=== PATIENT | female | born 1970 | race Caucasian/White ===

== ENCOUNTER 2020-05-11 12:43 | Outpatient (CLI) | payer BC, SELFPAY ==
--- NOTE | 2020-05-11 15:00 | NEURO_ITS ---
Patient Number: [id number] Impression: # Complains of numbness of hands. # Right Carpal Tunnel Syndrome involving motor and sensory median nerve. # Left sensory Carpal Tunnel Syndrome. # No ulnar neuropathy. # Normal needle/EMG exam. Nerve Conduction Studies Anti Sensory Summary Table Stim Site NR Peak (ms) P-T Amp (?V) Site1 Site2 Delta-P (ms) Dist (cm) Lang (m/s) Left Median Anti Sensory (2-3nd Digit) Wrist 2.6 154.1 Wrist 2-3nd Digit 2.6 14.0 54 Wrist 5.1 126.6 Wrist 2-3nd Digit 2.6 14.0 54 Right Median Anti Sensory (2-3nd Digit) Wrist 6.4 45.5 Wrist 2-3nd Digit 6.4 14.0 22 Wrist 5.8 58.9 Wrist 2-3nd Digit 6.4 14.0 22 Left Radial Anti Sensory (Base 1st Digit) Wrist 1.9 49.1 Wrist Base 1st Digit 1.9 0.0 Right Radial Anti Sensory (Base 1st Digit) Wrist 1.8 29.6 Wrist Base 1st Digit 1.8 0.0 Left Ulnar Anti Sensory (5th Digit) Wrist 2.2 119.6 Wrist 5th Digit 2.2 14.0 64 Right Ulnar Anti Sensory (5th Digit) Wrist 2.1 98.5 Wrist 5th Digit 2.1 14.0 67 Motor Summary Table Stim Site NR Onset (ms) O-P Amp (mV) Site1 Site2 Delta-0 (ms) Dist (cm) Lang (m/s) Left Median Motor (Abd Poll Brev) Wrist 2.5 1.6 Elbow Wrist 4.8 27.0 56 Elbow 7.3 1.3 Right Median Motor (Abd Poll Brev) Wrist 2.2 4.5 Elbow Wrist 5.2 28.0 54 Elbow 7.4 3.0 Left Ulnar Motor (Abd Dig Minimi) Wrist 2.2 5.4 A Elbow Wrist 4.5 27.0 60 A Elbow 6.7 7.0 Right Ulnar Motor (Abd Dig Minimi) Wrist 1.6 7.8 A Elbow Wrist 4.5 29.0 64 A Elbow 6.1 7.2 F Wave Studies NR F-Lat (ms) L-R F-Lat (ms) Left Median (Mrkrs) (Abd Poll Brev) 22.94 2.17 Right Median (Mrkrs) (Abd Poll Brev) 25.10 2.17 Left Ulnar (Mrkrs) (Abd Dig Min) 23.07 0.10 Right Ulnar (Mrkrs) (Abd Dig Min) 22.97 0.10 EMG Side Muscle Nerve Root Ins Act Fibs Amp Dur Recrt Comment Right 1stDorInt Ulnar C8-T1 Nml Nml Nml Nml Nml Right Ext Indicis Radial (Post Int) C7-8 Nml Nml Nml Nml Nml Right Ext Digitorum Radial (Post Int) C7-8 Nml Nml Nml Nml Nml Right BrachioRad Radial C5-6 Nml Nml Nml Nml Nml Right PronatorTeres Median C6-7 Nml Nml Nml Nml Nml Right Abd Poll Brev Median C8-T1 Nml Nml Nml Nml Nml Left 1stDorInt Ulnar C8-T1 Nml Nml Nml Nml Nml Left Ext Indicis Radial (Post Int) C7-8 Nml Nml Nml Nml Nml Left Ext Digitorum Radial (Post Int) C7-8 Nml Nml Nml Nml Nml Left BrachioRad Radial C5-6 Nml Nml Nml Nml Nml Left PronatorTeres Median C6-7 Nml Nml Nml Nml Nml Left Abd Poll Brev Median C8-T1 Nml Nml Nml Nml Nml MTDD
== END 2020-05-11 12:44 | disposition home or self-care (01) ==
PROVIDERS: PCP Family Medicine; Visit Provider Family Medicine
DX: G56.01 Carpal tunnel syndrome, right upper limb (principal); G56.22 Lesion of ulnar nerve, left upper limb
CPT/HCPCS: 95886; 95911

== ENCOUNTER 2020-05-22 12:42 | Outpatient (CLI) | payer BC, SELFPAY ==
--- NOTE | 2020-05-22 12:46 | ECG_ITS ---
Measurements Intervals [place] Rate: 85 P: -19 WV: 143 QRS: 39 QRSD: 84 T: 58 QT: 364 QTc: 435 Interpretive Statements SINUS RHYTHM BASELINE ARTIFACT- II, III, AVL, AVF NORMAL ECG Electronically Signed On 05-22-2020 15:23:08 CDT by Mohinder Sweeney D.O.
== END 2020-05-22 12:43 | disposition home or self-care (01) ==
LOC: ANHSURGERY 12:46
PROVIDERS: PCP Family Medicine; Visit Provider Surgery Plastic and Reconstructive Surgery
DX: E78.5 Hyperlipidemia, unspecified (principal)
CPT/HCPCS: 93005

== ENCOUNTER 2020-05-30 02:11 | Outpatient (CLI) | payer BC, SELFPAY ==
[2020-05-30 17:03] LABS: SARS-CoV-2 RNA PCR Negative
== END 2020-05-30 02:12 | disposition home or self-care (01) ==
LOC: ANHCOVIDDT 02:12
PROVIDERS: PCP Family Medicine; Visit Provider Surgery Plastic and Reconstructive Surgery
DX: Z01.812 Encounter for preprocedural laboratory examination (principal); Z20.828 Contact with and (suspected) exposure to other viral communicable diseases
CPT/HCPCS: 87635; C9803; U0003

== ENCOUNTER 2020-06-01 00:15 | Day surgery (SDC) | payer BC, SELFPAY ==
[2020-05-22 09:50] VITALS: BMI 34.5
--- NOTE | 2020-06-01 06:59 | WPDHPUPDATE1 ---
History and Physical Update Update Date/Time: 06/01/20 06:59 History and Physical has been reviewed, including an updated exam of the patient. There are NO changes in the patient's condition. Risks, benefits, and alternatives have been discussed and questions answered. Patient agrees to proceed with procedure.
[2020-06-01 07:02] VITALS: BP 136/89; PULSE 93; RESP 18; TEMP 37; O2SAT 96
--- NOTE | 2020-06-01 07:12 | WPDANESEPPF ---
Anes - Initial Pre Proc Eval Procedure: Operation Date: 06/01/20 07:30 Proposed Procedures p Right Open Carpal Tunnel Release - Bk Finch MD Date/Time: 06/01/20 07:12 Surgeon: Bk Finch MD Pre Op Diagnosis: right carpal tunnel syndrome Patient Data Age: 50 Gender: F Height: 5 ft 3 in Weight: 93.7 kg Last Vital Signs Temp 37.0 C 06/01/20 07:02 Pulse 93 06/01/20 07:02 Resp 18 06/01/20 07:02 BP 136/89 06/01/20 07:02 Pulse Ox 96 06/01/20 07:02 Allergies Allergy/AdvReac Type Severity Reaction Status Date / Time guaifenesin AdvReac Mild Chest Pain Verified 06/01/20 06:52 ibuprofen AdvReac Mild Gastrointestinal Verified 06/01/20 06:52 Upset Home Medications Medication Instructions Recorded Confirmed Type montelukast 10 mg tablet 10 mg PO DAILY #90 tablet 08/06/19 06/01/20 Rx bupropion HCl 150 mg 24 hr tablet, 150 mg PO QAM #30 tablet 01/25/20 05/22/20 Rx extended release escitalopram oxalate 5 mg tablet 5 mg PO DAILY 01/25/20 06/01/20 History rosuvastatin 5 mg tablet 2.5 mg PO .M W F #30 tablet 01/25/20 05/22/20 Rx fluticasone propionate 50 2 spray NASAL DAILY #15.8 ml 04/22/20 06/01/20 Rx mcg/actuation nasal spray,suspension hydrocodone 5 mg-acetaminophen 325 1 tablet PO Q6H PRN #15 tablet 05/22/20 06/01/20 Rx mg tablet levalbuterol tartrate 2 inhalation INHALATION Q6H PRN 05/22/20 06/01/20 History multivitamin 1 tablet PO DAILY 05/22/20 06/01/20 History naproxen sodium [Aleve] 220 mg PO DIRECTED PRN 05/22/20 06/01/20 History ondansetron HCl 4 mg tablet 4 mg PO Q6H PRN #30 tablet 05/22/20 05/22/20 Rx Patient hx anesthesia problems: none Family hx anesthesia problems: none PMFSH Past Medical History Medical History Anxiety HLD (hyperlipidemia) Seasonal allergies Surgical History Surgical History Previous section times 3 Family History Family History Other Diabetes mellitus Family history of elevated blood lipids Hypertension Social History Social History Smoking status: Never smoker Second hand tobacco smoke exposure: No Alcohol intake: never Spiritual care concerns: No Anes - Eval Final PreProcedure Day of Procedure 06/01/20 07:12 Patient weight: obese Heart: regular rate and rhythm Lungs: clear to auscultation Airway: Mallampati scale class III Neurological: alert and oriented Last oral intake: >/= 8 hours ASA classification: III Emergent: no Anesthetic plan: proceed Anesthesia type and monitoring: general GIVS and standard monitoring Informed Consent: The patient's anesthetic plan and its attendant risks and benefits were discussed with the patient/family/POA. Questions were solicited and answers provided to the satisfaction of the patient/family/POA.
[2020-06-01] MEDS: LACTATED RINGERS 1,000 ML 30 ML IV CONT (07:16)
[2020-06-01] MEDS: ceFAZolin 2 GM/D5W 50 ML 2 GM/50 ML BAG IVPB (07:22)
[2020-06-01] MEDS: LIDO 1%/EPINEPHRINE 1:100,000 20 ML VIAL 7 ML INFILTRATE (07:22)
[2020-06-01 07:55] VITALS: BP 115/71; PULSE 92; RESP 14; O2SAT 100
--- NOTE | 2020-06-01 08:01 | PM.PROC ---
Procedure Note - Detailed Date of procedure: 06/01/20 Pre-op diagnosis: right carpal tunnel syndrome Post-op diagnosis: same Procedure performed: right open carpal tunnel release Description of procedure: Patient was marked in the preoperative holding area with their verification. Taken to the operating room placed supine on operating room table. Anesthesia provided by anesthesiology and prepped and draped in standard sterile fashion. Surgical time-out was taken. 1% lidocaine and 0.25% Marcaine with epinephrine was used anesthetize locally. Esmarch was used to exsanguinate the arm and tourniquet inflated to 250 mmHg. Fifteen blade used to make an incision just ulnar to the palmaris longus tendon location. Dissection was continued down until the transverse carpal ligament was identified and this was completely released under direct visualization with no evidence of neurovascular or tendon injury. I closed with horizontal mattress 4-0 nylon. Xeroform fluffs and a lightly applied Job were used for final dressing. Anesthesia: MAC Surgeon: Bk Finch MD Estimated blood loss (mL): 1 Tourniquet time (min): 10 Drains: No Packing: No Pathology: none sent Complications: No immediate complications Condition: stable Disposition: PACU Findings: transverse carpal ligament released under direct visualization with no evidence of neurovascular injury.
[2020-06-01 08:25] VITALS: BP 123/74; PULSE 78; RESP 16
[2020-06-01 08:55] VITALS: BP 132/86; PULSE 68; RESP 16
--- NOTE | 2020-06-01 09:24 | SUR.PHASEII ---
0900; PT AWAKE AND ALERT. STATES READY TO GO HOME. MEETS DISCHARGE CRITERIA
--- NOTE | 2020-06-01 11:14 | SUR.OPER ---
EBL:0cc
== END 2020-06-01 09:20 | disposition home or self-care (01) ==
PROVIDERS: PCP Family Medicine; Visit Provider Surgery Plastic and Reconstructive Surgery
PROC: (CPT 64721; principal; 2020-06-01 07:30)
DX: G56.01 Carpal tunnel syndrome, right upper limb (principal); E78.5 Hyperlipidemia, unspecified; F41.9 Anxiety disorder, unspecified; E66.9 Obesity, unspecified; Z68.36 Body mass index [BMI] 36.0-36.9, adult
CPT/HCPCS: 64721; J0690; J2250; J2704; J3010; J7120

== ENCOUNTER → 2020-11-14 07:01 | Outpatient (CLI) | payer BC, SELFPAY ==
[2020-11-14 20:35] LABS: SARS-CoV-2 RNA PCR Negative
== END ==
PROVIDERS: PCP Family Medicine; Visit Provider Physician Assistant
DX: J02.9 Acute pharyngitis, unspecified (principal); Z20.822 Contact with and (suspected) exposure to COVID-19
CPT/HCPCS: C9803; U0003; U0005

== ENCOUNTER 2022-06-05 07:57 | Outpatient (CLI) | payer BC, SELFPAY ==
--- NOTE | 2022-07-10 20:59 | WPDSLEEPSTUD ---
Sleep Study Date of Study: 06/05/22 Ordering Provider: Lacey Mcdowell MD Interpreting Physician: Wendy Silva DO Sleep Study Type: Split Polysomnogram Height: 1.6 m Weight: 99.79 kg Body Mass Index: 38.9 Neck Circumference (inches): 17 [place]: 15 Reason for Sleep Study Snoring, daytime hypersomnia Sleep History The patient is a 52 year old female with anxiety, hypertension, GERD and seasonal allergies that had a sleep study ordered by her primary care physician for evaluation of sleep apnea. The patient denies awakening from sleep short of breath. She rarely awakens at night with heartburn, belching or cough. She frequently snores loud enough that others complain. She occasionally has trouble sleeping when she has a cold. She denies waking up gasping for air throughout the night. She occasionally has breathing problems at night observed by herself or others. She frequently sweats excessively at night. She frequently has heart palpitations or irregular heartbeats during the night. She frequently falls asleep during the day but never while driving. She denies sleep paralysis, cataplexy and hypnagogic / hypnopompic hallucinations. She occasionally has trouble at school or work due to sleepiness. She denies feeling afraid of going to sleep. She occasionally has nightmares. She occasionally remembers her dreams. She frequently has thoughts racing through her mind. She occasionally feels sad or depressed. She constantly is anxious. She constantly has muscular tension. She rarely notices parts of her body jerk. She rarely kicks during the night. She rarely has crawling and aching feelings in her legs and occasionally has leg pain during the night. She frequently grinds her teeth during sleep and occasionally awakens with morning jaw pain. She is constantly bothered by pain during the day and occasionally awakened by pain during the night. She frequently wakes up feeling stiff in the morning. She rarely wakes up with sore achy muscles. She rarely wakes up with pain in the neck, spine or other joints. She goes to bed at 11:00 p.m. on weekdays and at midnight on the weekends. It takes her 5 minutes to fall asleep. She wakes up 3 times throughout the night to urinate. She is able to fall back asleep within 5 minutes. She wakes up between 5-630 a.m. on weekdays and at 6:30 a.m. on the weekends. She typically gets 6-7 hours of sleep. She will stay in bed for 10 minutes after waking up in the morning. She currently lives with her and 3 children. She does not consume any caffeinated beverages within 2 hours of bedtime. She does not engage in physical exercise before bedtime. She will watch television before falling asleep. She will take naps in the afternoon or the evening but they are not refreshing. Did She does not consume any caffeinated beverages throughout the day. She denies tobacco, alcohol and recreational drug use. [facility] Past Medical History Medical History Anxiety HLD (hyperlipidemia) Seasonal allergies Surgical History Surgical History Previous section times 3 Family History Family History Other Diabetes mellitus Family history of elevated blood lipids Hypertension Social History Social History Smoking status: Never smoker Second hand tobacco smoke exposure: No Alcohol intake: never Substance use: never Substance use type: does not use Gender identity (if verbalized by the patient): Female Spiritual care concerns: No Agree to blood products: Yes Medications Home Medications Medication Instructions Recorded Confirmed Type levalbuterol tartrate 45 2 inhalation inhalation Q6H PRN 05/22/20 05/16/22 History mcg/actuation
[2022-07-10 21:07] VITALS: BMI 38.9
== END 2022-06-06 07:01 | disposition home or self-care (01) ==
PROVIDERS: PCP Family Medicine; Visit Provider Family Medicine
DX: G47.33 Obstructive sleep apnea (adult) (pediatric) (principal); R06.83 Snoring
CPT/HCPCS: 95811

== ENCOUNTER → 2023-10-03 11:29 | Outpatient (CLI) | payer OTHER, SELFPAY ==
--- NOTE | ~2023-10-03 | XR_ITS ---
EXAM: XR knee LT min 4V DATE: 10/03/2023 11:45 HISTORY: M25.569 - Pain in unspecified knee . COMPARISON: None available. FINDINGS: Normal mineralization. No fracture or dislocation. No lytic or blastic lesion. Mild medial joint space narrowing. Mild tricompartmental osteophytosis. Quadriceps enthesopathy. Small volume david int fluid. No erosion or periosteal change. Soft tissues within normal limits. IMPRESSION: Mild tricompartmental osteoarthritis, with small left knee joint effusion. Reviewed, dictated and finalized at location [facility]. ER IMPRESSION: Mild tricompartmental osteoarthritis, with small left knee joint ef fusion.
== END ==
PROVIDERS: PCP Family Medicine; Visit Provider Family Medicine
DX: M17.12 Unilateral primary osteoarthritis, left knee (principal); M25.462 Effusion, left knee
CPT/HCPCS: 73564

== ENCOUNTER 2023-12-01 15:51 | Outpatient (CLI) | payer BC, SELFPAY ==
--- NOTE | ~2023-12-01 | MR_ITS ---
MRI of the left knee Clinical history: Medial meniscus tear Technique: Coronal proton density and proton density-weighted images, sagittal proton-density and T2 fat-sat images, and axial proton-density fat-saturated images were acquired. Findings: Anterior and posterior cruciate ligaments are intact. Medial collateral ligament and the la teral collateral ligament complex are intact. Popliteus tendon is intact. Medial and lateral menisci are intact, without evidence of tear. There is moderate chondral thinning of the medial and lateral femoral condyles. There is mild chondro malacia at the patellar apex. There is mild to moderate chondromalacia the femoral trochlea. Bone mar row signals are unremarkable. Extensor mechanism is intact. Small joint effusion present. No Britt's cyst. Impression: Tricompartmental chondral thinning, as detailed above. No definite ligamentous injury or meniscal tear seen. Reviewed, dictated and finalized at [facility]. Impression: Tricompartmental chondral thinning, as detailed above. No definite ligamentous injury or meniscal tear seen.
== END 2023-12-01 15:52 ==
LOC: MICIMG 15:51
PROVIDERS: PCP Family Medicine; Visit Provider Orthopaedic Surgery
DX: S83.242A Other tear of medial meniscus, current injury, left knee, initial encounter (principal); X58.XXXA Exposure to other specified factors, initial encounter
CPT/HCPCS: 73721

== ENCOUNTER 2024-05-08 08:17 | Outpatient (CLI) | payer BC, SELFPAY ==
--- NOTE | ~2024-05-08 | XR_ITS ---
XR chest 2V DATE: 05/08/2024 08:32 INDICATION: Cough TECHNIQUE: 2 views COMPARISON: 12/19/2008 2 view chest FINDINGS: Normal heart size. No hilar or mediastinal enlargement. Mild bilateral lower lobe infiltrates are suggested, left greater than right. The lungs otherwise yari ear clear. No pleural effusion or pulmonary vascular congestion or pneumothorax.. IMPRESSION: Bilateral lower lobe infiltrates is suggested, left greater than right Reviewed, dictated and finalized at location [facility]. IMPRESSION: Bilateral lower lobe infiltrates is suggested, left greater than ri ght
== END 2024-05-08 08:18 ==
PROVIDERS: PCP Family Medicine; Visit Provider Family Medicine
DX: R91.8 Other nonspecific abnormal finding of lung field (principal)
CPT/HCPCS: 71046

== ENCOUNTER 2024-09-06 00:49 | Day surgery (SDC) | payer BC, SELFPAY ==
[2024-08-16 14:22] VITALS: BMI 39.0
--- NOTE | 2024-09-06 06:38 | P.PNAN_ITS ---
Anes - Initial Pre Proc Eval Procedure: Operation Date: 09/06/24 09:00 Proposed Procedures p Screening Colonoscopy - Timmy Sutton DO Date/Time: 09/06/24 06:38 Surgeon: Timmy Sutton DO Pre Op Diagnosis: Screening for malignant neoplasm of colon Patient Data Age: 54 Gender: F Height: 1.6 m Weight: 100 kg Allergies Allergy/AdvReac Type Severity Reaction Status Date / Time guaifenesin AdvReac Mild Chest Pain Verified 09/06/24 07:37 ibuprofen AdvReac Mild Gastrointestinal Verified 09/06/24 07:37 Upset Home Medications ?Medication ?Instructions ?Recorded ?Confirmed ?Type naproxen sodium 220 mg capsule 220 mg PO BID PRN Pain 11/26/23 08/16/24 History (Aleve) alprazolam 0.25 mg tablet 0.25 mg PO TID PRN anxiety #20 tabs 12/30/23 08/16/24 Rx cholecalciferol (vitamin D3) 125 125 mcg PO DAILY #90 caps 12/30/23 09/06/24 Rx mcg (5,000 unit) capsule ferrous sulfate 325 mg (65 mg 325 mg PO .M W F #90 tabs 12/30/23 09/06/24 Rx iron) tablet levalbuterol tartrate 45 2 inh inhalation Q6H PRN Shortness 12/30/23 08/16/24 Rx mcg/actuation aerosol inhaler Of Breath #45 grams lisinopril 5 mg tablet 5 mg PO DAILY #90 tabs 12/30/23 09/06/24 Rx metoprolol succinate 25 mg See Rx Instructions .Route 12/30/23 09/06/24 Rx tablet,extended release 24 hr .COMPLEX #90 tabs bupropion HCl 150 mg 24 hr tablet, 150 mg PO QAM #90 tabs 03/02/24 09/06/24 Rx extended release (Wellbutrin XL) omeprazole 20 mg capsule,delayed 20 mg PO DAILY #30 caps 03/02/24 09/06/24 Rx release sertraline 25 mg tablet 25 mg PO DAILY #90 tabs 07/06/24 09/06/24 Rx semaglutide (weight loss) 0.25 0.25 mg (0.5 mL) subcut WEEKLY #2 11/11/24 12/16/24 Rx mg/0.5 mL subcutaneous pen mL injector (Scribz) budesonide-formoterol HFA 160 2 puff inhalation Q12H PRN 08/16/24 08/16/24 History mcg-4.5 mcg/actuation aerosol Shortness Of Breath inhaler (Symbicort) Patient hx anesthesia problems: none Family hx anesthesia problems: none Results Review: All pre-operative results and documents have been reviewed as part of the pre- operative evaluation. [facility] Past Medical History Medical History (Updated 09/06/24 @ 06:39 by Rasta De La Paz DO) Asthma WERNER (obstructive sleep apnea) Prediabetes Essential hypertension Restless legs Anxiety HLD (hyperlipidemia) Seasonal allergies Surgical History Surgical History History of carpal tunnel release of both wrists Previous section times 3 Family History Family History (Updated 07/13/24 @ 12:31 by Lacey Mcdowell MD) Sibling Acute myocardial infarction, Onset Age: 45 Grandparent Primary biliary cirrhosis Other Diabetes mellitus Family history of elevated blood lipids Hypertension Social History Social History Smoking status: Never smoker Second hand tobacco smoke exposure: No Alcohol intake: never Substance use: never Substance use type: does not use Do You Feel Safe in your Home?: Yes Lack of Transportation: No Lack of Food: Never True Current Housing: I Have Housing Concerned About Future Housing: No Difficulty Paying Gas/Electric Bills: No Difficulty Paying for Meds: No Currently Unemployed: No Education: Bachelor's Degree Difficulty w/ Childcare or Family Care: YES Living arrangements: alone Occupation/Education: unemployed Gender identity (if verbalized by the patient): Female Sexual Orientation (if Verbalized by the Patient): Straight or Heterosexual Spiritual care concerns: No Agree to blood products: Yes Anes - Eval Final PreProcedure Day of Procedure 09/06/24 06:38 Patient weight: obese Heart: regular rate and rhythm Lungs: clear to auscultation Airway: Mallampati scale class III Neurological: alert and oriented Last oral intake: >/= 8 hours ASA classification: III Emergent: no Anesthetic plan: proceed Anesthesia type and monitoring: general GIVS and standard monitoring Results Review: All pre-operative results and documents have been reviewed as part of the pre- operative evaluation. Informed Consent: The patient's anesthetic plan and its attendant risks and benefits were discussed with the patient/family/POA. Questions were solicited and answers provided to the satisfaction of the patient/family/POA.
[2024-09-06 07:44] VITALS: BP 131/56; PULSE 87; RESP 18; TEMP 36.1; O2SAT 98; BMI 39.1
[2024-09-06 07:49] LABS: BEDSIDEPREGUCG Negative (Negative)
[2024-09-06] MEDS: LACTATED RINGERS 1,000 ML 150 ML IV CONT (07:53)
--- NOTE | 2024-09-06 08:59 | PM.IMHP ---
H&P: HPI History of Present Illness Date/Time: 09/06/24 08:59 Chief Complaint: screening for colorectal cancer Narrative: 54 yo woman presents for first colonoscopy. No hematochezia or melena. No fam hx colon cancer. Review of Systems Review of Systems: All systems reviewed & are unremarkable except as noted in HPI and below Constitutional: Constitutional: Denies chills, Denies fever(s), Denies headache(s) and Denies weight loss Eyes: Eyes: Denies change in vision ENT: Denies dizziness, Denies headache(s), Denies neck mass and Denies throat swelling Cardiovascular: Cardiovascular: Denies chest pain, Denies lightheadedness and Denies dyspnea Respiratory: Respiratory: Denies cough, Denies dyspnea and Denies wheezing Gastrointestinal: Gastrointestinal: Denies abdominal pain, Denies change in bowel habits, Denies nausea and Denies vomiting Genitourinary: Genitourinary: Denies hematuria and Denies dysuria Musculoskeletal: Musculoskeletal: Reports as per HPI Integumentary/Breasts: Skin/Breast: Reports as per HPI Neurologic: Denies dizziness and Denies headache(s) Allergic/Immunologic: Allergic/Immunologic: Denies throat swelling and Denies wheezing PMFSH Past Medical History Medical History (Updated 09/06/24 @ 06:39 by Rasta De La Paz DO) Asthma WERNER (obstructive sleep apnea) Prediabetes Essential hypertension Restless legs Anxiety HLD (hyperlipidemia) Seasonal allergies Surgical History Surgical History History of carpal tunnel release of both wrists Previous section times 3 Family History Family History (Updated 07/13/24 @ 12:31 by Lacey Mcdowell MD) Sibling Acute myocardial infarction, Onset Age: 45 Grandparent Primary biliary cirrhosis Other Diabetes mellitus Family history of elevated blood lipids Hypertension Social History Social History Smoking status: Never smoker Second hand tobacco smoke exposure: No Alcohol intake: never Substance use: never Substance use type: does not use Do You Feel Safe in your Home?: Yes Lack of Transportation: No Lack of Food: Never True Current Housing: I Have Housing Concerned About Future Housing: No Difficulty Paying Gas/Electric Bills: No Difficulty Paying for Meds: No Currently Unemployed: No Education: Bachelor's Degree Difficulty w/ Childcare or Family Care: YES Living arrangements: alone Occupation/Education: unemployed Gender identity (if verbalized by the patient): Female Sexual Orientation (if Verbalized by the Patient): Straight or Heterosexual Spiritual care concerns: No Agree to blood products: Yes Meds Home Medications and Allergies Home Medications ?Medication ?Instructions ?Recorded ?Confirmed ?Type naproxen sodium 220 mg capsule 220 mg PO BID PRN Pain 11/26/23 08/16/24 History (Aleve) alprazolam 0.25 mg tablet 0.25 mg PO TID PRN anxiety #20 tabs 12/30/23 08/16/24 Rx cholecalciferol (vitamin D3) 125 125 mcg PO DAILY #90 caps 12/30/23 09/06/24 Rx mcg (5,000 unit) capsule ferrous sulfate 325 mg (65 mg 325 mg PO .M W F #90 tabs 12/30/23 09/06/24 Rx iron) tablet levalbuterol tartrate 45 2 inh inhalation Q6H PRN Shortness 12/30/23 08/16/24 Rx mcg/actuation aerosol inhaler Of Breath #45 grams lisinopril 5 mg tablet 5 mg PO DAILY #90 tabs 12/30/23 09/06/24 Rx metoprolol succinate 25 mg See Rx Instructions .Route 12/30/23 09/06/24 Rx tablet,extended release 24 hr .COMPLEX #90 tabs bupropion HCl 150 mg 24 hr tablet, 150 mg PO QAM #90 tabs 03/02/24 09/06/24 Rx extended release (Wellbutrin XL) omeprazole 20 mg capsule,delayed 20 mg PO DAILY #30 caps 03/02/24 09/06/24 Rx release sertraline 25 mg tablet 25 mg PO DAILY #90 tabs 07/06/24 09/06/24 Rx semaglutide (weight loss) 0.25 0.25 mg (0.5 mL) subcut WEEKLY #2 08/02/24 09/06/24 Rx mg/0.5 mL subcutaneous pen mL injector ([place]) budesonide-formoterol HFA 160 2 puff inhalation Q12H PRN 08/16/24 08/16/24 History mcg-4.5 mcg/actuation aerosol Shortness Of Breath inhaler (Symbicort) Allergies Allergy/AdvReac Type Severity Reaction Status Date / Time guaifenesin AdvReac Mild Chest Pain Verified 09/06/24 07:37 ibuprofen AdvReac Mild Gastrointestinal Verified 09/06/24 07:37 Upset Vital Signs Vital Signs - 24 hr 09/06/24 07:44 Temperature 96.9 F L Pulse Rate 87 Respiratory Rate 18 Blood Pressure 131/56 L Pulse Oximetry 98 Oxygen Delivery Room Air Exam Const: General: no acute distress and alert Orientation/consciousness: patient oriented x3 HENMT: Head: normocephalic and atraumatic Ears: hearing grossly normal bilaterally Face/Nose/Sinus: Normal nares present Mouth: Yes Normal oral and palatal mucosa present Eyes: Periorbital: periorbital findings normal Sclera: sclerae normal EOM: EOMs intact bilaterally Neck: Neck: normal visual inspection, no lymphadenopathy and trachea midline Chest: Chest palpation & inspection: normal inspection of the chest Resp: Effort & Inspection: normal respiratory effort Auscultation: clear to auscultation bilaterally Cardio: Jugular venous distension: no JVD Rate: regular rate Rhythm: regular rhythm Heart sounds: S1 normal heart sound present and S2 normal heart sound present Peripheral pulses: Peripheral pulses 2+ throughout GI: Inspection: normal to inspection GI Palp: Yes Soft to palpation, No Tenderness to palpation present (GI), No Guarding due to palpation present (GI) and No Rebound tenderness present Percussion: Yes normal to percussion Auscultation: normal bowel sounds : General: Yes no CVA tenderness Back/Spine/Pelvis: Back: no CVA tenderness Neuro: General: patient oriented x3, no focal motor deficits and CN's II-XI intact bilaterally Cognition (Neuro): normal cognition Speech: normal speech Motor exam (neuro): 5/5 motor strength present throughout Extrem: General: capillary refill normal and no clubbing, cyanosis or edema Assessment and Plan Assessment and plan (1) Colon cancer screening: Code(s): Z12.11 - Encounter for screening for malignant neoplasm of colon Status: Acute Assessment and Plan: I have recommended colonoscopy. I have discussed the procedure, risks, benefits, and alternatives. Questions were answered. Patient is agreeable to proceed.
[2024-09-06 09:14] VITALS: BP 117/70; PULSE 78; RESP 17; O2SAT 100
[2024-09-06 09:24] VITALS: BP 126/84; PULSE 71; RESP 24; O2SAT 100
[2024-09-06 09:34] VITALS: BP 121/73; PULSE 74; RESP 18; O2SAT 100
--- OUTSIDE RECORDS SUMMARY | 2024-09-11 10:42 | XMS_ITS | Referral Summary ---
Author Organization [facility] Address [address] [place] [address] Care Team Providers Care Stator Connector Name Role Phone Lacey Mcdowell MD Primary Care Provider [phone] Source Comments [facility],non-owned Affiliates and Associated Physician Practices is amultiple site organization consisting of ambulatory clinics and hospital sitesin [place], [place], [place]. This disclosure is being madepursuant to the Care Everywhere program and may not contain all information available regarding this patient. Last updated 18.[facility] [employer] Allergies Active Allergy Reactions Criticality Noted Date Comments Guaifenesin Other 08/06/2023 Chest pain Ibuprofen Diarrhea 07/04/2023 Medications * Be aware that medications may not be up to date on this document. Alwaysverify current medications with the patient. Medication Sig Dispensed Refills Start Date End Date Status metoprolol succinate XL 24hr (Toprol XL) 25 MG tablet Take 1 (one) tablet by mouth once daily 05/01/2023 Active lisinopril (Prinivil; Zestril) 5 MG tablet Take 1 (one) tablet by mouth once daily 04/07/2023 Active omeprazole (PriLOSEC) 40 MG capsule Take 1 (one) capsule by mouth once daily 05/23/2023 Active escitalopram (Lexapro) 5 MG tablet Take 1 (one) tablet by mouth once daily 06/25/2023 Active iron polysaccharides (Niferex 150) 150 MG capsule Take 1 (one) capsule by mouth once daily Active ascorbic acid (Vitamin C) 250 MG tablet Take 1 (one) tablet by mouth once daily Active vitamin D3 (Cholecalciferol) 10 MCG (400 UNIT) tablet Take 1 (one) tablet by mouth once daily Active HYDROcodone-acetaminoph en ([place]) 10-325 MG tabletIndications:Preop examination,Postoperati ve pain,Carpal tunnel syndrome of left wrist Take 1 (one) tablet by mouth every 6 hours as needed for Pain 12 tablet 08/12/2023 Active Social History Tobacco Use Types Packs/Day Years Used Date Smoking Tobacco: Never Smokeless Tobacco: Never Alcohol Use Standard Drinks/Week Comments Never 0 (1 standard drink = 0.6 oz pur e alcohol) Sex and Gender Information Value Date Recorded Sex Assigned at Not on file Gender Identity Not on file Sexual Orientation Not on file Last Filed Vital Signs Vital Sign Reading Time Taken Comments Blood Pressure 136/67 08/12/2023 2:20 PM PM TECHNICIAN Pulse 77 08/12/2023 2:20 PM PM TECHNICIAN Temperature 36.2 ??C (97.2 ??F) 08/12/2023 1:26 PM CS T Respiratory Rate 19 08/12/2023 2:20 PM PM TECHNICIAN Oxygen Saturation 95% 08/12/2023 2:20 PM PM TECHNICIAN Inhaled Oxygen Concentration - - Weight 102.6 kg (226 lb 3.2 oz) 023 12:01 PM PM TECHNICIAN Height 160 cm (5' 3 ) 08/12/2023 12:01 PM PM TECHNICIAN Body Mass Index 40.07 08/12/2023 12:01 PM PM TECHNICIAN Plan of Treatment Not on file Care Teams Stator Connector Relationship Specialty Start Date End Date Lacey Mcdowell MD [address] [place] [address] PCP - General Family Medicine 08/12/23
--- OUTSIDE RECORDS SUMMARY | 2024-09-11 10:42 | XMS_ITS | Encounter Summary ---
Author Organization [facility] Address [address] [place] [address] [place] [address] Care Team Providers Care Icd 9 Coder Name Role Phone Lacey Mcdowell MD Primary Care Provider [phone] Reason for Visit * Auth/Cert (Routine) Specialty Diagnoses / Procedures Referred By Olive briceño Referred To Contact Diagnoses Carpal tunnel syndrome on left Carpal tunnel syndrome on left [G56.02] Procedures AK REVISE MEDIAN N/CARPAL TUNNEL SURG RELEASE CARPAL TUNNEL Referral ID Status Reason Start Date Expiration Date Visits Re quested Visits Authorized [id number] 1 Encounter Details Date Type Department Care Team (Late st Contact Info) Description 08/12/2023 1:00 PM GREY WASHER - 08/12/2023 1:45 PM GREY WASHER Surgery [facility] - General Surgery [address], [address] [place] [address] Jeremiah Silverio MD [facility] [place] [address] LEFT CARPAL TUNNEL RELEASE Surgery Details Date/Time Status Location OR Service Patient Class Case Class Case Type Trauma Case? 08/12/2023 1:00 PM Posted [facility] OR 1 Orthopedics Surgery Day Care Elective > 5 days Panel 1 Procedure LRB Anes Op Region Wound Class Comments LEFT CARPAL TUNNEL RELEASE Left Mac with Pio Block Wri st Clean Surgeon Surgeon Role Service Panel Jeremiah Silverio MD Primary Orthopedics 1 documented in this encounter Social History Tobacco Use Types Packs/Day Years Used Date Smoking Tobacco: Never Smokeless Tobacco: Never Alcohol Use Standard Drinks/Week Comments Never 0 (1 standard drink = 0.6 oz pur e alcohol) Sex and Gender Information Value Date Recorded Sex Assigned at Not on file Gender Identity Not on file Sexual Orientation Not on file documented as of this encounter Last Filed Vital Signs Vital Sign Reading Time Taken Comments Blood Pressure 135/77 08/12/2023 1:45 PM GREY WASHER Pulse 70 08/12/2023 1:45 PM GREY WASHER Temperature 36.2 ??C (97.2 ??F) 08/12/2023 1:26 PM CS T Respiratory Rate 18 08/12/2023 1:45 PM GREY WASHER Oxygen Saturation 99% 08/12/2023 1:45 PM GREY WASHER Inhaled Oxygen Concentration - - Weight 102.6 kg (226 lb 3.2 oz) 023 12:01 PM GREY WASHER Height 160 cm (5' 3 ) 08/12/2023 12:01 PM GREY WASHER Body Mass Index 40.07 08/12/2023 12:01 PM GREY WASHER documented in this encounter Medications at Time of Discharge Medication Sig Dispensed Refills Start Date End Date ascorbic acid (Vitamin C) 250 MG tablet Take 1 (one) tablet by mouth once daily escitalopram (Lexapro) 5 MG tablet Take 1 (one) tablet by mouth once daily 06/25/2023 HYDROcodone-acetaminophen ([place]) 10-325 MG tabletIndications:Preop examination,Postoperative pain,Carpal tunnel syndrome of left wrist Take 1 (one) tablet by mouth every 6 hours as needed for Pain 12 tablet 08/12/2023 iron polysaccharides (Niferex 150) 150 MG capsule Take 1 (one) capsule by mouth once daily lisinopril (Prinivil; Zestril) 5 MG tablet Take 1 (one) tablet by mouth once daily 04/07/2023 metoprolol succinate XL 24hr (Toprol XL) 25 MG tablet Take 1 (one) tablet by mouth once daily 05/01/2023 omeprazole (PriLOSEC) 40 MG capsule Take 1 (one) capsule by mouth once daily 05/23/2023 vitamin D3 (Cholecalciferol) 10 MCG (400 UNIT) tablet Take 1 (one) tablet by mouth once daily documented as of this encounter H&P Notes * Jeremiah Silverio MD - 08/11/2023 8:58 PM CST SUBJECTIVE: Salud Mann comes in for evaluation of her left hand. Patient is a 53-year-old female who has been having issues for quite a while with numbness and tingling. She has had the same issue on her right side, had surgery for it in the past. She has issues when she is driving. It goes numb a lot through the day. She does have a brace that she has used at nighttime. It has been sometimes helpful. She has pain that wakes her up at night and it has been doing that for years. She is now here for further evaluation and treatment. She was sent up for an EMG study that was actually done April 2020 and she says it has gotten worse since then. ?? PAST MEDICAL HISTORY: High blood pressure, sleep apnea, and asthma. ?? ALLERGIES: Ibuprofen which gives her diarrhea. ?? 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 Not a smoker. No significant alcohol use. ?? CURRENT MEDICATIONS: Include Lexapro and blood pressure medicine. ?? PHYSICAL EXAMINATION: 5 feet 3 inches, 218 pounds. She has tenderness with palpation in the thenar region. Positive Tinel's especially with wrist extension was noted to the median nerve distribution. She has diminished sensation to light touch in the median nerve distribution. No issues at the ulnar nerve. No significant weakness with pinch strength, no atrophy at the thenar eminence. ?? IMPRESSION: Left carpal tunnel syndrome. ?? PLAN: We talked about treatment options. Because of the ongoing nature of the problem and it is not improved with bracing, she cannot take ibuprofen, so she is more than agreeable to move forward with surgical treatment. She understands it will be outpatient procedure, she will have the stitches that will need to come out about 10 days later. She will be a little limited in use of her hand in regard to help her mom out for about a week or so. Questions answered. She is ready to move forward with a left carpal tunnel release. WASHER documented in this encounter OR Notes * Operative - Jeremiah Silverio MD - 08/12/2023 6:24 PM CST [facility] OPER[facility]IVE REPORT PATIENT: : SALUD MANN MR#: [id number] ADMIT DATE: 08/12/2023 CSN: [id number] DATE OF SURGERY: 08/12/2023 : 1970 PHYSICIAN: Jeremiah Silverio MD ROOM: PREOPERATIVE DIAGNOSIS: Left carpal tunnel syndrome. POSTOPERATIVE DIAGNOSIS: Left carpal tunnel syndrome. PROCEDURE PERFORMED: Left carpal tunnel release. ANESTHESIA: Pio block. SURGEON: Dr. Silverio. INDICATIONS FOR PROCEDURE: The patient is a 53-year-old female with increasing pain and difficulty in her left hand. It has gotten to the point where nonsurgical measures no longer help. Pain and discomfort from the numbness are bad enough. She now wishes to move forward with surgical treatment. PROCEDURE: The patient was taken to the operating room and placed in supine position on the operating table. After successful placement of a Pio block on the left arm, the left upper extremity was prepped and draped in the usual sterile fashion. A time-out procedure was completed. A volar incision made in the palm of the hand in a curvilinear fashion following the crease. Subcutaneous tissues were dissected. Hemostasis achieved with electrocautery. The palmar fascia was identified and nicked. The [place] elevator was passed deep to that to protect the median nerve. The distal aspect of the carpal ligament was dissected to free up the median nerve. We came out proximally and in a similar fashion, [place] elevator passed deep to the carpal ligament to protect the median nerve and the remainder of that released. The skin was elevated. Under direct visualization, the distal forearm fascia was released with tenotomy scissors. Wound was irrigated with saline. Horizontal mattress sutures were used to close the skin. Sterile dressing was then applied and the tourniquet was released from the [place] block after 20 minutes. There were no complications. We added another 2 cc of 0.5% plain Marcaine during the procedure. She was taken in stable condition to recovery room. Jeremiah Silverio MD CDK/MODL #: [id number] WASHER * Operative - Jeremiah Silverio MD - 08/12/2023 1:08 PM CST Dict # [id number] preop dx left cts Postop dx same Proc left ctr anesth pio block Surgeon michael tt 20 min ebl min complic none Disp good to rr WASHER documented in this encounter Plan of Treatment Not on file documented as of this encounter Procedures Procedure Name Priority Date/Time Associated Diagnosis Comments HCG URINE QUAL POCT NOTIFICATION Routine 08/12/2023 1:01 PM GREY WASHER Preop examination AK REVISE MEDIAN N/CARPAL TUNNEL SURG 08/12/2023 12:44 PM GREY WASHER Carpal tunnel syndrome on left HCG URINE QUALITATIVE - POCT (IP) INTERFACED Routine 08/12/2023 11:58 AM GREY WASHER documented in this encounter Results * HCG URINE QUAL POCT NOTIFICATION (08/12/2023 1:01 PM GREY WASHER) Comment Notification Label Only - See Separate Report 08/12/2023 1:01 PM GREY WASHER [facility] Urine URINE / Unknown 11:54 AM GREY WASHER Yvonne Sr DO LAB - URINALYSIS ORD ERABLES Performing Organization Address City/[facility] [facility] Co de Phone Number [facility] [address] [place], [place] [id number] * HCG URINE QUALITATIVE - POCT (IP) INTERFACED (08/12/2023 11:58 AM GREY WASHER) HCG Qual Urine Negative Negative 08/12/2023 12:04 PM GREY WASHER [facility] Urine URINE / Unknown 08/12/2023 1 1:58 AM GREY WASHER 08/12/2023 12:04 PM GREY WASHER Jeremiah Silverio MD LAB - POINT OF CARE ORDERABLES Performing Organization Address City/[facility] Co de Phone Number [facility] [address] [place] [address] documented in this encounter Visit Diagnoses Diagnosis Preop examination- Primary Preoperative examination, unspecified Postoperative pain Other acute postoperative pain Carpal tunnel syndrome of left wrist Carpal tunnel syndrome Carpal tunnel syndrome on left Carpal tunnel syndrome documented in this encounter Administered Medications Inactive Administered Medications - up to 3 most recent administrations Medication Order MAR Action Action Date Dose Rate Site 0.9% NaCl irrigation solution CONTINUOUS PRN, Starting on Fri08/12/23 at 1314, Until Fri08/12/23 at 1329, Intra-op $ New Bag/Syringe 08/12/2023 1:14 PM GREY WASHER 500 mL Operative Site BUPivacaine PF (Marcaine PF) 0.25 % injection PRN, Starting on Fri08/12/23 at 1314, Until Fri08/12/23 at 1329, Intra-op $ Given 08/12/2023 1:14 PM GREY WASHER 5 mL Operative Site lactated ringers infusion at 100 mL/hr, Intravenous, CONTINUOUS, Starting on Fri08/12/23 at 1145, Until Fri08/13/23 at 0136, Pre-op $ New Bag/Syringe 08/12/2023 12:20 PM GREY WASHER 100 mL/hr lidocaine PF (Xylocaine MPF) 1 % injection 0.2 mL 0.2 mL, Infiltration, PRE-OP MULTIPLE, 3 doses, Starting on Fri08/12/23 at 1143, Until Fri08/13/23 at 0136, May be used (0.2 ml locally to anesthetize prior to insertion)., Pre-op $ Given 08/12/2023 12:11 PM GREY WASHER 0.2 mL documented in this encounter Care Teams Icd 9 Coder Relationship Specialty Start Date End Date Lacey Mcdowell MD [address] [place] [address] PCP - General Family Medicine 08/12/23 documented as of this encounter
--- OUTSIDE RECORDS SUMMARY | 2024-09-11 10:42 | XMS_ITS | Encounter Summary ---
Author Organization [facility] Address [address] [place] [address] Care Team Providers Care Teaching Specialists Name Role Phone Lacey Mcdowell MD Primary Care Provider [phone] Reason for Visit * Auth/Cert (Routine) Specialty Diagnoses / Procedures Referred By Olive briceño Referred To Contact Diagnoses Carpal tunnel syndrome on left Carpal tunnel syndrome on left [G56.02] Procedures [place] [facility]IAN N/CARPAL TUNNEL SURG RELEASE CARPAL TUNNEL Referral ID Status Reason Start Date Expiration Date Visits Re quested Visits Authorized [id number] 1 1 Encounter Details Date Type Department Care Team (Late st Contact Info) Description 08/12/2023 12:50 PM EARLY CHILDHOOD EDUCATOR AIDE Anesthesia Event [facility] - General Surgery [address], [address] [place] [address] Yvonne Sr, DO [address] [place] [address] Herb Mathis APRN-FREEZING MACHINE OPERATOR [address] [place] [address] Anesthesia Record Procedure Summary Procedure Name Responsible Anesthesiologist Anesthesia Start Time Anesthesia Stop Time LEFT CARPAL TUNNEL RELEASE (Left: Wrist) Yvonne Sr DO 08/12/23 1250 08/12/23 1331 Events Date Time Event Comment 08/12/2023 1228 1250 An Start 1254 An Start Data 1300 PT Reassessment 1300 Stop ABX 1301 An Tourn Inflated Pressure: 300mmHg 1302 an arelis now 1307 Timeout Anesthesia part icipated in timeout at the time documented in the record by nursing. 1321 An Tourn Deflated Total Tour niquet Time ( in minutes): 20 1323 Electnc Sig This record is electronically signed by the providers listed under staff. 1323 an stop data 1323 ANPTO2 1331 An Stop Meds Name Total midazolam 2 mg/2mL injection 2 mg fentaNYL 100 mcg/2mL injection 50 mcg propofol 200 mg/20mL injection 100 mg propofol 1000 mg/100mL infusion 161.6 mg ondansetron 4 mg/2mL injection 4 mg ketorolac 30 mg/mL injection 30 mg dexamethasone 4 mg/mL injection 4 mg ceFAZolin (Ancef) 2 g in 0.9% NaCl IV 50 mL IVPB 2 g lidocaine 0.5% (PF) injection (5 mg/mL) 30 mL lactated ringers infusion 500 mL * Agents Name Exp. N2O O2 * Blood No blood administrations on file. Lines, Drains, and Airways Type Details Placement Removal Peripheral IV Date: 08/12/23; Time: 1211; Orientation: Left, Posterior; Placed By: Dr Sr; Tolerance: Well 08/12/23 1211 by Kassidy Cruz RN 08/12/23 1315 by Yael Lemus RN Peripheral IV Date: 08/12/23; Time: 1215; Orientation: Posterior, Right; Placed By: Dr Sr; Tolerance: Well 08/12/23 1215 by Kassidy Cruz RN 08/12/23 1419 by Yael Lemus RN Procedural Site (Incision) 08/12/23; 1315; Left; Hand; left carpal tunnel release; 08/13/23; 0636 08/12/23 1315 by Ruby Adams RN 08/13/23 0636 by Lakeisha, Auto Release documented in this encounter Social History Tobacco Use Types Packs/Day Years Used Date Smoking Tobacco: Never Smokeless Tobacco: Never Alcohol Use Standard Drinks/Week Comments Never 0 (1 standard drink = 0.6 oz pur e alcohol) Sex and Gender Information Value Date Recorded Sex Assigned at Not on file Gender Identity Not on file Sexual Orientation Not on file documented as of this encounter Progress Notes * Herb Mathis, DANILO-FREEZING MACHINE OPERATOR - 08/12/2023 1:30 PM CST ANESTHESIA POSTOP EVALUATION NOTE Procedure: LEFT CARPAL TUNNEL RELEASE (Left: Wrist) Marisela Kerns is a 53 year old female Patient Vitals for the past 6 hrs: BP Temp Pulse Resp SpO2 Pain Rating Score #1 Pain Scale/Observation 08/12/23 1214 129/91 97.4 ??F (36.3 ??C) 63 16 98 % 0 N Anesthesia Type: MAC w/ block Pre-op Diagnosis Codes: * Carpal tunnel syndrome on left [G56.02] Mental Status: awake and sufficiently recovered from acute administration of anesthesia to participate in the evaluation Neuro Status: No numbness, tingling or visual disturbances Respiratory Function: natural Cardiac Function: stable Postop Pain: acceptable to the patient Postop Hydration: adequate Postop Nausea: none Assessment: no apparent anesthetic complications, patient tolerated procedure well and no evidence of recall Patient Disposition: Release from Anesthesia Care NOTABLE EVENTS: No notable events documented. Y CHILDHOOD EDUCATOR AIDE * Yvonne Sr DO - 08/12/2023 12:28 PM CST ANESTHESIA PREOPERATIVE EVALUATION NOTE Procedure: LEFT CARPAL TUNNEL RELEASE (Left: Wrist) NPO status: Since Midnight (08/12/2023 12:09 PM) Vitals: Patient Vitals for the past 6 hrs: BP Temp Pulse Resp SpO2 Pain Rating Score #1 08/12/23 1214 129/91 97.4 ??F (36.3 ??C) 63 16 98 % 0 LMP: Patient's last menstrual period was 06/03/2023 (approximate). OB Status: Having periods ANESTHESIA PRE-EVALUATION NOTE The patient is a current non-smoker. Physical Exam: Orientation X3 Airway/Mallampati Score: III Mouth Opening Distance: 3 fingerwidths Neck ROM: full TM Distance: > 3 FB Teeth: normal Heart: normal - S1 S2 Lungs: clear to ausculation bilaterally Abdomen Exam: obese Review of Systems: History of anesthetic complications: Yes Sleep Apnea Risk: Yes, CPAP - compliant PONV: Yes GERD: Yes, well controlled ANESTHESIA PLAN ASA Score: 3 NPO Status: No solids since midnight and No liquids within 2 hours Anesthesia Plan: MAC and IVRA Planned Induction: intravenous Planned Postop Destination: PACU Anesthetic plan was discussed with: patient Anesthetic Plan discussion was: Consented The patient's procedural Anesthetic Plan was discussed with the anesthesiologist and FREEZING MACHINE OPERATOR. BMI, Height, Weight Tobacco History Estimated body mass index is 40.07 kg/m?? as calculated from the following: Height as of this encounter: 1.6 m (5' 3 ). Weight as of this encounter: 102.6 kg (226 lb 3.2 oz). Social History Tobacco Use Smoking Status Never Smokeless Tobacco Never Alcohol History Drug History Social History Substance and Sexual Activity Alcohol Use Never Social History Substance and Sexual Activity Drug Use Never Outpatient Medications: Inpatient Medications: Outpatient Medications Marked as Taking for the 08/12/23 encounter (Hospital Encounter) Medication Sig Last Dose ??? ascorbic acid Take 1 (one) tablet by mouth once daily 08/11/2023 ??? escitalopram Take 1 (one) tablet by mouth once daily 08/11/2023 ??? iron polysaccharides Take 1 (one) capsule by mouth once daily 08/11/2023 ??? lisinopril Take 1 (one) tablet by mouth once daily 08/11/2023 ??? metoprolol succinate XL 24hr Take 1 (one) tablet by mouth once daily 08/11/2023 ??? omeprazole Take 1 (one) capsule by mouth once daily 08/11/2023 ??? vitamin D3 Take 1 (one) tablet by mouth once daily 08/11/2023 Current Facility-Administered Medications Medication Dose Last Admin ??? 0.9% NaCl 3 mL And ??? 0.9% NaCl 1-10 mL ??? 0.9% NaCl 3 mL And ??? 0.9% NaCl 3 mL ??? ceFAZolin 2 g ??? lactated ringers New Bag at 08/12/23 1220 ??? lidocaine 0.2 mL 0.2 mL at 08/12/23 1211 ??? scopolamine 1 patch And ??? scopolamine patch placement confirmation Allergies: Allergies Allergen Reactions ??? Guaifenesin Other Chest pain ??? Ibuprofen Diarrhea Relevant Problems Problem List: There are no problems to display for this patient. Medical History: Past Medical History: Diagnosis Date ??? Essential hypertension ??? GERD (gastroesophageal reflux disease) ??? Pure hypercholesterolemia ??? Sleep apnea Surgical History: Past Surgical History: Procedure Laterality Date ??? CARPAL TUNNEL SURGERY Right ??? Section x3 FRUIT TRIMMER Status: Patient's last menstrual period was 06/03/2023 (approximate). Having periods OB History No obstetric history on file. Covid Vaccine: Lab Results: Recent Labs Component Name 08/12/23 1158 HCGURINE Negative No results found for requested labs within last 120 days. No results found for requested labs within last 120 days. Y CHILDHOOD EDUCATOR AIDE documented in this encounter Procedure Notes * Herb Mathis APRN-CRNA - 08/12/2023 1:14 PM CSTAssociated Order(s): Lakeisha Runge Block: Patient Location: OR. Procedure: Lakeisha Block Pre Procedure Section: Indications: surgical anesthesia Pre-Anesthetic Checklist: Patient identified, Site examined, Surgical consent verified, Pre-op evaluation done, Informed consent obtained, Allergies reviewed, IV Checked, Risks and benefits discussed, Monitors and equipment, Time-out performed and Questions answered/anesthesia questions answered Patient Position: supine Laterality: left Monitors: BP, continuous pluse ox, EKG and End tidal CO2 Patient Sedated? Yes, Nursing documentation on MAR Block IV already in place: yes Gauge: 22 Procedure: Tourniquet: single Inflation Pressure: 300 Arm Exsanguinated: yes Tourniquet Inflated: yes Pulses Checked: yes Drug Injected: yes Procedure Tolerance: tolerated moderately Procedure Start Time: 08/12/2023 12:58 PM. Procedure End Time: 08/12/2023 1:02 PM. Procedure Total Time: 4 minutes. Staff Section Anesthesia Provider: Herb Mathis APRN-CRNA Performed the procedure Y CHILDHOOD EDUCATOR AIDE documented in this encounter Miscellaneous Notes * Anesthesia Transfer of Care - Herb Mathis APRN-CRNA - 08/12/2023 1:30 PM CST ANESTHESIA TRANSFER OF CARE NOTE Today's Date: 08/12/2023 Date of : 1970 Patient: Marisela Kerns Procedure(s): LEFT CARPAL TUNNEL RELEASE Surgeon(s): Primary: Jeremiah Silverio MD Preop Diagnosis: Pre-op Diagnois: * Carpal tunnel syndrome on left [G56.02] Pre-op Meds (From admission, onward) Start Stop Status Route Frequency Ordered 08/12/23 1143 0.9% NaCl injection 1-10 mL See Hyperspace for full Linked Orders Report. -- Dispensed IK PRN 08/12/23 1143 08/12/23 1400 0.9% NaCl injection 3 mL See Hyperspace for full Linked Orders Report. -- Dispensed IK EVERY 8 HOURS 08/12/23 1143 08/12/23 1400 0.9% NaCl injection 3 mL See Hyperspace for full Linked Orders Report. -- Dispensed IK EVERY 8 HOURS 08/12/23 1029 08/12/23 1029 0.9% NaCl injection 3 mL See Hyperspace for full Linked Orders Report. -- Dispensed IK PRN 08/12/23 1029 08/12/23 1314 0.9% NaCl irrigation solution 08/12/23 1329 Completed CONTINUOUS PRN 08/12/23 1314 08/12/23 1145 ceFAZolin (Ancef) 2 g in 0.9% NaCl IV 50 mL IVPB 08/12/23 1254 Completed IV ONCE 08/12/23 1143 08/12/23 1307 dexAMETHasone (Decadron) injection -- Sent IV PRN 08/12/23 1313 08/12/23 1310 fentaNYL (PF) (Sublimaze) injection -- Sent IV PRN 08/12/23 1312 08/12/23 1302 ketorolac (Toradol) injection -- Sent IV PRN 08/12/23 1313 08/12/23 1145 lactated ringers infusion -- Dispensed IV CONTINUOUS 08/12/23 1143 08/12/23 1143 lidocaine PF (Xylocaine MPF) 1 % injection 0.2 mL -- Verified INFILTRATION PRE-OP MULTIPLE 08/12/23 1143 08/12/23 1302 lidocaine PF 0.5% (Xylocaine) 0.5 % injection -- Sent IV PRN 08/12/23 1313 08/12/23 1250 midazolam (Versed) injection -- Sent IV PRN 08/12/23 1312 08/12/23 1307 ondansetron (Zofran) injection -- Sent IV PRN 08/12/23 1313 08/12/23 1307 propofol (Diprivan) infusion -- Sent IV CONTINUOUS PRN 08/12/23 1312 08/12/23 1307 propofol (Diprivan) injection -- Sent IV PRN 08/12/23 1312 08/12/23 1143 scopolamine (Transderm-Scop) 1 patch See Hyperspace for full Linked Orders Report. 08/15/23 1144 Verified TD EVERY 72 HOURS 08/12/23 1143 08/12/23 1145 scopolamine patch placement confirmation See Hyperspace for full Linked Orders Report. -- Verified TD 2 TIMES DAILY 08/12/23 1143 Post-op Diagnosis: * Carpal tunnel syndrome on left [G56.02] . Allergies Allergen Reactions ??? Guaifenesin Other Chest pain ??? Ibuprofen Diarrhea Vitals: Patient Vitals for the past 3 hrs: BP Temp Pulse Resp SpO2 Pain Rating Score #1 08/12/23 1214 129/91 97.4 ??F (36.3 ??C) 63 16 98 % 0 Lines, Drains, and Airways Type Details Placement Removal Peripheral IV Date: 08/12/23; Time: 1210; Orientation: Left, Posterior; Location: Hand; Placed By: Dr Sr; Gauge: 22 Gauge ; Locals: Injectable; Tolerance: Well 08/12/231210 by Kassidy Cruz RN Peripheral IV Date: 08/12/23; Time: 1214; Orientation: Posterior, Right; Location: Hand; Placed By:Dr Sr; Gauge: 20 Gauge; Locals: Injectable; Tolerance: Well 08/12/231214 by Kassidy Cruz RN Intraprocedure I/O Totals Intake lactated ringers infusion 500.00 mL ceFAZolin (Ancef) 2 g in 0.9% NaCl IV 50 mL IVPB 50.00 mL Total Intake 550 mL Patient Transfer Location: PACU Transport Airway: spontaneous respirations Complications: None Handoff Given? Yes Checklist or Protocol - The lane handoff elements that must be included in the transfer of care checklist include: 1. Identification of patient. 2. Identification of responsible practitioner (PACU nurse or advanced practitioner). 3. Discussion of pertinent medical history. 4. Discussion of the surgical/procedure course (procedure, reason for surgery, procedure performed). 5. Intraoperative anesthetic management and issue/concerns. 6. Expectations/Plans for the early post-procedure period. 7. Opportunity for questions and acknowledgement of understanding of report from the receiving PACU team. TRAVIS Stevens Y CHILDHOOD EDUCATOR AIDE documented in this encounter Plan of Treatment Not on file documented as of this encounter Procedures Procedure Name Priority Date/Time Associated Diagnosis Comments Lakeisha Block Routine 08/12/2023 1:14 PM EARLY CHILDHOOD EDUCATOR AIDE documented in this encounter Results * ANESTHESIA BLOCK PERF (08/12/2023 1:14 PM EARLY CHILDHOOD EDUCATOR AIDE) Narrative Herb Mathis APRN-CRNA - 08/12/2023 1:14 PM EARLY CHILDHOOD EDUCATOR AIDE Herb Mathis APRN-CRNA ? 08/12/2023 ??1:15 PM Runge Block: ? Patient Location: OR. Procedure: ??Runge Block Pre Procedure Section: ?? Indications: ??surgical anesthesia Pre-Anesthetic Checklist: ??Patient identified, Site examined, Surgical consent verified, Pre-op evaluation done, Informed consent obtained, Allergies reviewed, IV Checked, Risks and benefits discussed, Monitors and equipment, Time-out performed and Questions answered/anesthesia questions answered Patient Position: ??supine Laterality: ??left Monitors: ??BP, continuous pluse ox, EKG and End tidal CO2 Patient Sedated? ??Yes, Nursing documentation on MAR Block IV already in place: ??yes Gauge: ??22 Procedure: ? Tourniquet: ??single Inflation Pressure: ??300 Arm Exsanguinated: ??yes Tourniquet Inflated: ??yes Pulses Checked: ??yes Drug Injected: ??yes Procedure Tolerance: ??tolerated moderately Procedure Start Time: 08/12/2023 12:58 PM. Procedure End Time: 08/12/2023 1:02 PM. Procedure Total Time: 4 ??minutes. Staff Section ? Anesthesia Provider: Herb Mathis APRN-CRNA, Performed the procedure Yvonne Sr DO GENERAL ANESTHESIA O RDERABLES documented in this encounter Visit Diagnoses Not on filedocumented in this encounter Administered Medications Inactive Administered Medications - up to 3 most recent administrations Medication Order MAR Action Action Date Dose Rate Site ceFAZolin (Ancef) 2 g in 0.9% NaCl IV 50 mL IVPB 2 g, at 100 mL/hr, Intravenous, ONCE, 1 dose, On Fri08/12/23 at 1145, Administer??within 60 minutes??before surgical incision to ensure adequate antibiotic concentration at surgical sites at the time of incision.??Antibiotic infusion must be completed ZERO-TEN minutes?? prior to incision or tourniquet, Indication for anti-infective therapy: Surgical prophylaxis, Pre-op $ New Bag/Syringe 08/12/2023 12:54 PM EARLY CHILDHOOD EDUCATOR AIDE 2 g dexAMETHasone (Decadron) injection Intravenous, PRN, Starting on Fri08/12/23 at 1307, Until Fri08/12/23 at 1331, Anesthesia Intra-op $ Given 08/12/2023 1:07 PM EARLY CHILDHOOD EDUCATOR AIDE 4 mg fentaNYL (PF) (Sublimaze) injection Intravenous, PRN, Starting on Fri08/12/23 at 1310, Until Fri08/12/23 at 1331, Anesthesia Intra-op $ Given 08/12/2023 1:10 PM EARLY CHILDHOOD EDUCATOR AIDE 50 mcg ketorolac (Toradol) injection Intravenous, PRN, Starting on Fri08/12/23 at 1302, Until Fri08/12/23 at 1331, Anesthesia Intra-op $ Given 08/12/2023 1:02 PM EARLY CHILDHOOD EDUCATOR AIDE 30 mg lidocaine PF 0.5% (Xylocaine) 0.5 % injection Intravenous, PRN, Starting on Fri08/12/23 at 1302, Until Fri08/12/23 at 1331, Anesthesia Intra-op $ Given 08/12/2023 1:02 PM EARLY CHILDHOOD EDUCATOR AIDE 30 mL midazolam (Versed) injection Intravenous, PRN, Starting on Fri08/12/23 at 1250, Until Fri08/12/23 at 1331, Anesthesia Intra-op $ Given 08/12/2023 12:50 PM EARLY CHILDHOOD EDUCATOR AIDE 2 mg ondansetron (Zofran) injection Intravenous, PRN, Starting on Fri08/12/23 at 1307, Until Fri08/12/23 at 1331, Anesthesia Intra-op $ Given 08/12/2023 1:07 PM EARLY CHILDHOOD EDUCATOR AIDE 4 mg propofol (Diprivan) infusion Intravenous, CONTINUOUS PRN, Starting on Fri08/12/23 at 1307, Until Fri08/12/23 at 1331, Anesthesia Intra-op Rate Change 08/12/2023 1:10 PM EARLY CHILDHOOD EDUCATOR AIDE 150 mcg/kg/min 92.34 mL/hr $ New Bag/Syringe 08/12/2023 1:07 PM EARLY CHILDHOOD EDUCATOR AIDE 75 mcg/kg/min 46. 17 mL/hr propofol (Diprivan) injection Intravenous, PRN, Starting on Fri08/12/23 at 1307, Until Fri08/12/23 at 1331, Anesthesia Intra-op $ Given 08/12/2023 1:11 PM EARLY CHILDHOOD EDUCATOR AIDE 40 mg $ Given 08/12/2023 1:09 PM EARLY CHILDHOOD EDUCATOR AIDE 40 mg $ Given 08/12/2023 1:07 PM EARLY CHILDHOOD EDUCATOR AIDE 20 mg documented in this encounter Care Teams Teaching Specialists Relationship Specialty Start Date End Date Lacey Mcdowell MD [address] [place] [address] PCP - General Family Medicine 08/12/23 documented as of this encounter
--- OUTSIDE RECORDS SUMMARY | 2024-09-11 10:42 | XMS_ITS | Clinical Summary ---
Author Organization [facility] Address [address] [place] [address] Care Team Providers Care Production Machine Shop Supervisor Name Role Phone Lacey Mcdowell MD Primary Care Provider [phone] Source Comments [facility],non-owned Affiliates and Associated Physician Practices is amultiple site organization consisting of ambulatory clinics and hospital sitesin [place], [place], [place] and [place]. This disclosure is being madepursuant to the Care Everywhere program and may not contain all information available regarding this patient. Last updated 18.[facility] Daylife Allergies Active Allergy Reactions Criticality Noted Date [...] by mouth once daily Active HYDROcodone-acetaminoph en ([place]) 10-325 MG tabletIndications:Preop examination,Postoperati ve pain,Carpal tunnel [...] Comments Blood Pressure 136/67 08/12/2023 2:20 PM PARBOILER Pulse 77 08/12/2023 2:20 PM PARBOILER Temperature 36.2 ??C (97.2 ??F) 08/12/2023 1:26 PM CS T Respiratory Rate 19 08/12/2023 2:20 PM PARBOILER Oxygen Saturation 95% 08/12/2023 2:20 PM PARBOILER Inhaled Oxygen Concentration - - Weight 102.6 kg (226 lb 3.2 oz) 023 12:01 PM PARBOILER Height 160 cm (5' 3 ) 08/12/2023 12:01 PM PARBOILER Body Mass Index 40.07 08/12/2023 12:01 PM PARBOILER Plan of Treatment Health Maintenance Due Date Last Done Comments COLOGUARD (AGES 45-75) - COL ON CA SCREENING 1970 COLON MONITORING 1970 COLONOSCOPY - COLON CA SCREENING 1970 CT COLONOGRAPHY - COLON CA SCREENING 1970 Colorectal Cancer Screening 1970 FIT - COLON CA SCREENING 1970 FLEX SIG - COLON CA SCREENING 1970 LIPID TESTING 1970 MAMMOGRAM 1970 PAP SMEAR 1970 HIV SCREENING 1985 HEPATITIS C SCREENING 04/11/1988 DTAP/TDAP/TD VACCINES (1 - Tdap) 1989 HEPATITIS B VACCINE (1 of 3 - 19+ 3-dose series) 1989 ZOSTER VACCINE (1 of 2) 2020 SCREENING FOR DIABETES 07/04/2023 DEPRESSION SCREENING 09/22/2023 COVID-19 VACCINE ( - 2023-2 5 season) 2024 INFLUENZA VACCINE (#1) 2024 HIB VACCINE Aged Out No longer eligi ble based on patient's age to complete this topic HPV VACCINE Aged Out No longer eligi ble based on patient's age to complete this topic MENINGOCOCCAL VACCINE Aged Out No bella manju eligible based on patient's age to complete this topic PNEUMOCOCCAL VACCINE Aged Out No long er eligible based on patient's age to complete this topic Care Teams Production Machine Shop Supervisor Relationship Specialty Start Date End Date Lacey Mcdowell MD [address] [place], [place] [id number] PCP - General Family Medicine 08/12/23
--- OUTSIDE RECORDS SUMMARY | 2024-09-11 10:42 | XMS_ITS | Patient Health Summary ---
Author Organization [facility] Address [address] [place] [address] Care Team Providers Care Concrete Tile Machine Operator Name Role Phone Lacey Mcdowell MD Primary Care Provider [phone] Note from [facility],non-owned Affiliates and Associated Physician Practices is amultiple site organization consisting of ambulatory clinics and hospital sitesin [place], [place], [place] and [place]. This disclosure is being madepursuant to the Care Everywhere program and may not contain all information available regarding this patient. Last updated 18.[facility] Allergies * Guaifenesin(Other) * Ibuprofen(Diarrhea) Medications * Be aware that medications may not be up to date on this document. Alwaysverify current medications with the patient. * metoprolol succinate XL 24hr (Toprol XL) 25 MG tablet(Started 05/01/2023) Take 1 (one) tablet by mouth once daily * lisinopril (Prinivil; Zestril) 5 MG tablet(Started 04/07/2023) Take 1 (one) tablet by mouth once daily * omeprazole (PriLOSEC) 40 MG capsule(Started 05/23/2023) Take 1 (one) capsule by mouth once daily * escitalopram (Lexapro) 5 MG tablet(Started 06/25/2023) Take 1 (one) tablet by mouth once daily * iron polysaccharides (Niferex 150) 150 MG capsule Take 1 (one) capsule by mouth once daily * ascorbic acid (Vitamin C) 250 MG tablet Take 1 (one) tablet by mouth once daily * vitamin D3 (Cholecalciferol) 10 MCG (400 UNIT) tablet Take 1 (one) tablet by mouth once daily * HYDROcodone-acetaminophen ([place]) 10-325 MG tablet(Started 08/12/2023) Take 1 (one) tablet by mouth every 6 hours as needed for Pain Social History Tobacco Use Types Packs/Day Years [...] Comments Blood Pressure 136/67 08/12/2023 2:20 PM BUILDING CUSTODIAL SUPERVISOR Pulse 77 08/12/2023 2:20 PM BUILDING CUSTODIAL SUPERVISOR Temperature 36.2 ??C (97.2 ??F) 08/12/2023 1:26 PM CS T Respiratory Rate 19 08/12/2023 2:20 PM BUILDING CUSTODIAL SUPERVISOR Oxygen Saturation 95% 08/12/2023 2:20 PM BUILDING CUSTODIAL SUPERVISOR Inhaled Oxygen Concentration - - Weight 102.6 kg (226 lb 3.2 oz) 023 12:01 PM BUILDING CUSTODIAL SUPERVISOR Height 160 cm (5' 3 ) 08/12/2023 12:01 PM BUILDING CUSTODIAL SUPERVISOR Body Mass Index 40.07 08/12/2023 12:01 PM BUILDING CUSTODIAL SUPERVISOR Procedures * Sims Block(Performed 08/12/2023) * HCG URINE QUAL POCT NOTIFICATION(Performed 08/12/2023) Performed for Preop examination * GA REVISE MEDIAN N/CARPAL TUNNEL SURG(Performed 08/12/2023) Performed for Carpal tunnel syndrome on left * HCG URINE QUALITATIVE - POCT (IP) INTERFACED(Performed 08/12/2023) * DERMATOPATHOLOGY(Performed 02/23/2019) * DERMATOPATHOLOGY(Performed 02/22/2015) * DERMATOPATHOLOGY(Performed 10/30/2011) Results * ANESTHESIA BLOCK PERF (08/12/2023 1:14 PM BUILDING CUSTODIAL SUPERVISOR) Narrative Herb Mathis APRN-DIRECTOR PUBLIC - 08/12/2023 1:14 PM BUILDING CUSTODIAL SUPERVISOR Herb Mathis APRN-CRNA ? 08/12/2023 ??1:15 PM Lakeisha Block: ? Patient Location: [place]. Procedure: ??Sims Block Pre Procedure Section: ?? Indications: ??surgical [...] Staff Section ? Anesthesia Provider: Herb Mathis APRN-AGUILA, Performed the procedure Yvonne Sr DO GENERAL ANESTHESIA O RDERABLES * HCG URINE QUAL POCT NOTIFICATION (08/12/2023 1:01 PM BUILDING CUSTODIAL SUPERVISOR) Comment Notification Label Only - See Separate Report 08/12/2023 1:01 PM BUILDING CUSTODIAL SUPERVISOR [facility] Urine URINE / Unknown 11:54 AM BUILDING CUSTODIAL SUPERVISOR Yvonne Sr DO LAB - URINALYSIS ORD ERABLES Performing Organization Address [facility] Co de Phone Number [facility] [address] [place] [address] * HCG URINE QUALITATIVE - POCT (IP) INTERFACED (08/12/2023 11:58 AM BUILDING CUSTODIAL SUPERVISOR) HCG Qual Urine Negative Negative 08/12/2023 12:04 PM BUILDING CUSTODIAL SUPERVISOR [facility] Urine URINE / Unknown 08/12/2023 1 1:58 AM BUILDING CUSTODIAL SUPERVISOR 08/12/2023 12:04 PM BUILDING CUSTODIAL SUPERVISOR Jeremiah Silverio MD LAB - POINT OF CARE ORDERABLES Performing Organization Address [facility] Co de Phone Number [facility] [address] [place] [address] * DERMATOPATHOLOGY (02/23/2019 12:00 AM CDT) Only the most recent of3 resultswithin the time period is included. Case Report Dermatopathology Report ? Case: [id number] ? Authorizing Provider: ??Jeremias Mcdonnell MD ?Collected: ? 02/23/2019 12:00 AM ? Pathologist: ? Federico Traore MD ? Received: ?02/24/2019 11:37 AM ? Specimens: ?? A) - Skin, right lateral abdomen ? B) - Skin, LUQ abdomen ? 9 4:02 PM CDT DERMATOPATHOLOGY LABORATORY Final Diagnosis Specimen A. SKIN, right lateral abdomen: LENTIGINOUS MELANOCYTIC NEVUS, COMPOUND TYPE, IRRITATED (COMPOUND MELANOCYTIC NEVUS WITH ARCHITECTURAL DISORDER) (D22.5) Specimen B. SKIN, LUQ abdomen: ACROCHORDON (SOFT FIBROMA, SKIN TAG) (L91.8) 9 4:02 PM CDT DERMATOPATHOLOGY LABORATORY Clinical History A-B: R/O dys nevus. 9 4:02 PM T DERMATOPATHOLOGY LABORATORY Gross Description Specimen A: Received is one formalin filled container labeled with the patient's name and designated right lateral abdomen. The specimen consists of a shave biopsy measuring [id number]. Jar 0. Specimen B: Received is one formalin filled container labeled with the patient's name and designated LUQ abdomen. The specimen consists of a shave biopsy measuring [id number], bisected. Jar 0. 9 4:02 PM T DERMATOPATHOLOGY LABORATORY Microscopic Description Specimen A. SKIN, right lateral abdomen: This is a compound nevus. There is melanin pigment in the stratum corneum. There is architectural disorder characterized by a lentiginous proliferation of melanocytes between irregular nevus nests of cells along the dermal epidermal junction. There is underlying fibroplasia of the papillary dermis. The intradermal component is bland in appearance and matures with depth. (Compound Sascha's Nevus or Compound Dysplastic Nevus) Specimen B. SKIN, LUQ abdomen: There is a gently folded epidermis surrounding a connective tissue core in which fat and collagen are intermingled. 9 4:02 PM T DERMATOPATHOLOGY LABORATORY Disclaimer An external and internal positive and negative controls are appropriate for the histochemical, immunohistochemical and immunofluorescence stain(s) in this case (if any), except where stated explicitly. The performance characteristics of the stain(s) cited in this report were developed and its performance characteristic determined by the Dermatopathology Laboratory at [facility], directed by Dr. Erin Traore. These tests need not be, and therefore are not, approved by the [place] Food and Drug Administration. The tests are used for clinical purposes. Billing Codes Specimen Charges Stain Charges 47682 78432 1 1 9 4:02 PM CDT DERMATOPATHOLOGY LABORATORY Embedded Images 9 4:02 PM CDT DERMATOPATHOLOGY LABORATORY Pathology/Cytology TISSUE SPECIMEN FROM SKIN / Unknown 02/23/2019 02/24/2019 11:37 AM CDT Miscellaneous samples (specimen) TISSUE SPECIMEN FROM SKIN / Unknown 02/23/2019 02/24/2019 11:37 AM CDT Jeremias Mcdonnell MD LAB - PATHOLOGY/CYTO LOGY ORDERABLES DERMATOPATHOLOGY LABORATORY [facility] - Department of Dermatology [address] [place] [address], [facility] [phone] Care Teams Concrete Tile Machine Operator Relationship Specialty Start Date End Date Lacey Mcdowell MD [address] [place] [address] PCP - General Family Medicine 08/12/23
--- OUTSIDE RECORDS SUMMARY | 2024-09-11 10:42 | XMS_ITS | Encounter Summary ---
Author Organization [facility] Address [address] [place] [address] Care Team Providers Care Tunnel Man Name Role Phone Lacey Mcdowell MD Primary Care Provider [phone] Reason for Visit * Reason Comments Post-Op Left Carpal tunnel r elease Encounter Details Date Type Department Care Team (Late st Contact Info) Description 08/22/2023 11:15 AM PRODUCTION BORING MACHINE OPERATOR Office Visit [facility] Orthopedics [address] [place] [address], [facility] [address] [place] [phone] Jeremiah Silverio MD [address] [place] [phone] Acute carpal tunnel syndrome, left (Primary Dx); Surgery follow-up examination Social History Tobacco Use Types Packs/Day Years Used Date Smoking Tobacco: Never Smokeless Tobacco: Never Alcohol Use Standard Drinks/Week Comments Never 0 (1 standard drink = 0.6 oz pur e alcohol) Sex and Gender Information Value Date Recorded Sex Assigned at Not on file Gender Identity Not on file Sexual Orientation Not on file documented as of this encounter Progress Notes * Gianna Hamilton - 08/22/2023 11:17 AM CST Post op carpal tunnel UCTION BORING MACHINE OPERATOR documented in this encounter H&P Notes * Jeremiah Silverio MD - 08/22/2023 1:14 PM CST DATE OF SERVICE: 08/22/2023 SUBJECTIVE: Marisela Kerns comes in for followup of her left hand. She is status post carpal tunnel release and she is doing really well. Occasional soreness here and there, but much improved. She has slept through the night that 1st night and has not had any numb tingly issues. OBJECTIVE: On exam, her incision line looks good. She has good range of motion of her fingers. Her wrist is still little stiff and sore, but not anything that is painful. Sensation is normal. IMPRESSION: Status post carpal tunnel release. PLAN: We will get her stitches out today. We will give her exercises to work on range of motion and strengthening. At this point, I do not need to see her back here again unless she has any further concerns or problems with anything. Jeremiah Silverio M.D. CK/MedQ #: [id number] cc: Lacey Mcdowell UCTION BORING MACHINE OPERATOR documented in this encounter Plan of Treatment Not on file documented as of this encounter Visit Diagnoses Diagnosis Acute carpal tunnel syndrome, left- Primary Surgery follow-up examination Follow-up examination, following unspecified surgery documented in this encounter Care Teams Tunnel Man Relationship Specialty Start Date End Date Lacey Mcdowell MD [address] [place] [address] PCP - General Family Medicine 08/12/23 documented as of this encounter
--- OUTSIDE RECORDS SUMMARY | 2024-09-11 10:43 | XMS_ITS | Encounter Summary ---
Author Organization [facility] Address [address] [place] [address] Care Team Providers Care Compensation Adjuster Name Role Phone Lacey Mcdowell MD Primary Care Provider [phone] Encounter Details Date Type Department Care Team (Late st Contact Info) Description 11/12/2021 Orders Only [facility] - [facility] [address] [place] [address] Ruby Zuniga DO [address] [place] [address] [address] [place] [address] Vasomotor rhinitis (Primary Dx) Social History Tobacco Use Types Packs/Day Years Used Date Smoking Tobacco: Never Smokeless Tobacco: Never Alcohol Use Standard Drinks/Week Comments No 0 (1 standard drink = 0.6 oz pur e alcohol) Comments No Sex and Gender Information Value Date Recorded Sex Assigned at Not on file Legal Sex Female 11:21 AM SNOW PLOW OPERATOR Gender Identity Not on file Sexual Orientation Not on file 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 documented as of this encounter Ordered Prescriptions Prescription Sig Dispense Quantity Refills Last Filled Start Date End Date azelastine (ASTELIN) 137 mcg (0.1 %) nasal sprayIndications:V asomotor rhinitis Administer 2 sprays into each nostril 2 (two) times a day Use in each nostril as directed 120 mL 11 11/12/2021 documented in this encounter Progress Notes * Ruby Zuniga DO - 11/12/2021 4:57 PM CST Astelin sent to Pharmacy PLOW OPERATOR documented in this encounter Plan of Treatment Not on file documented as of this encounter Visit Diagnoses Diagnosis Vasomotor rhinitis- Primary Allergic rhinitis, cause unspecified documented in this encounter Care Teams Compensation Adjuster Relationship Specialty Start Date End Date Lacey Mcdowell MD PCP - General 12/08/12 documented as of this encounter
--- OUTSIDE RECORDS SUMMARY | 2024-09-11 10:43 | XMS_ITS | Encounter Summary ---
Author Organization [facility] Care Team Providers Care Assembly Stock Supervisor Name Role Phone Lacey Mcdowell MD Primary Care Provider [phone] Encounter Details Date Type Department Care Team (Latest Contact Info) Description 04/28/2019 Travel Social History Tobacco Use Types Packs/Day Years Used Date Smoking Tobacco: Never Smokeless Tobacco: Never Alcohol Use Standard Drinks/Week Comments No 0 (1 standard drink = 0.6 oz pur e alcohol) Comments No Sex and Gender Information Value Date Recorded Sex Assigned at Not on file Legal Sex Female 11:21 AM BASKET BOTTOM MACHINE OPERATOR Gender Identity Not on file Sexual Orientation Not on file 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
--- OUTSIDE RECORDS SUMMARY | 2024-09-11 10:43 | XMS_ITS | Referral Summary ---
Author Organization [facility] [address] Address [address] [place] [address] Phone Care Team Providers Care Industrial Painter Name Role Phone Lacey Mcdowell MD Primary Care Provider [phone] Encounters Date Type Department Care Team Description 07/28/2024 Orders Only [facility] [address] [place] [address] May Ortiz MD Encounter for screening mammogram for malignant neoplasm of breast (Primary Dx) 07/28/2024 1:00 PM CONSTRUCTION ACCOUNTANT Office Visit [facility] [address] [place] [address] May Ortiz MD Encounter for gynecological examination without abnormal finding (Primary Dx); Urinary incontinence, mixed from Last 3 Months Allergies Active Allergy Reactions Criticality Noted Date Comments Guaifenesin Ibuprofen Medications naproxen sodium (ALEVE) 220 mg capsule 220 mg. 0 2 Active albuterol HFA (PROVENTIL HFA,VENTOLIN HFA) 90 mcg/actuation inhaler inhale 2 puff by inhalation route every 4 - 6 hours as needed 0 Inhaler 0 4 Active cetirizine (ZyrTEC) 10 mg tablet 10 mg. 0 2 Active escitalopram (LEXAPRO) 5 mg tablet TK 1 T PO D 0 9 Active fluticasone propionate (FLONASE) 50 mcg/actuation nasal spray INT TWO SPRAYS IEN D 0 Active azelastine (ASTELIN) 137 mcg (0.1 %) nasal sprayIndication s:Vasomotor rhinitis Administer 2 sprays into each nostril 2 (two) times a day Use in each nostril as directed 120 mL 11 2 Active metoprolol XL (TOPROL-XL) 25 mg extended release tablet Take 1 tablet (25 mg total) by mouth daily 2 Active omeprazole (PriLOSEC) 40 mg capsule Take 1 capsule (40 mg total) by mouth daily 3 Active Livalo 1 mg tablet Take 1 tablet (1 mg total) by mouth 2 (two) times a week 3 Active lisinopriL (PRINIVIL,ZESTR IL) 5 mg tablet Take 1 tablet (5 mg total) by mouth daily 3 Active clotrimazole-be tamethasone (LOTRISONE) lotionIndicatio ns:Chronic vulvitis Apply topically 2 (two) times a day as needed (rash) 30 mL 3 3 Active cholecalciferol 400 unit capsule Take 1 tablet/capsule (400 Units total) by mouth daily Active ferrous sulfate 325 mg (65 mg of elemental iron) tablet Take 1 tablet (325 mg total) by mouth daily with breakfast 4 Active Active Problems Problem Noted Date Diagnosed Date Encounter for screening colonoscopy 02/22/2022 Overview (02/22/2022): Added automatically from request for surgery [id number] Laryngopharyngeal reflux (LPR) 07/16/2021 Assessment & Plan (07/16/2021 4:23 PM CDT): Pepcid 40 mg at bedtime for at least 8 weeks LPR discussed and Handout provided Vasomotor rhinitis 07/16/2021 Assessment & Plan (07/16/2021 4:24 PM CDT): Call if no improvement in 8 weeks for start Astelin Obesity with body mass index 30 or greater 04/05 Overview (12/26/2016): BMI 30+ - obesity Anxiety 01/17/2015 Overview (12/26/2016): Anxiety Hypercholesterolemia 01/17/2015 Overview (12/26/2016): Elevated cholesterol Fibrocystic breast changes 12/08/2012 Overview (12/25/2016): Fibrocystic breast changes Resolved Problems Problem Noted Date Diagnosed Date Resolved Date Abnormal mammogram 01/27/2012 3 Social History Tobacco Use Types Packs/Day Years Used Date Smoking Tobacco: Never Smokeless Tobacco: Never Tobacco Cessation:Counseling Given: Not Answered Alcohol Use Standard Drinks/Week Comments No 0 (1 standard drink = 0.6 oz pur e alcohol) Comments No Sex and Gender Information Value Date Recorded Sex Assigned at Not on file Legal Sex Female 11:21 AM CONSTRUCTION ACCOUNTANT Gender Identity Not on file Sexual Orientation Not on file 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 Last Filed Vital Signs Vital Sign [place] Time Taken Comments Blood Pressure 132/80 07/28/2024 1:15 PM CONSTRUCTION ACCOUNTANT Pulse 97 09/26/2021 9:28 AM CONSTRUCTION ACCOUNTANT Temperature 36.5 ??C (97.7 ??F) 09/26/2021 9:28 AM CS T Respiratory Rate 16 09/26/2021 9:28 AM CONSTRUCTION ACCOUNTANT Oxygen Saturation 97% 09/26/2021 9:28 AM CONSTRUCTION ACCOUNTANT Inhaled Oxygen Concentration - - Weight 102.1 kg (225 lb) 07/28/2024 1:15 PM CONSTRUCTION ACCOUNTANT Height 160 cm (5' 3 ) 07/28/2024 1:15 PM CONSTRUCTION ACCOUNTANT Body Mass Index 39.86 07/28/2024 1:15 PM CONSTRUCTION ACCOUNTANT Plan of Treatment Not on file Procedures Procedure Name Priority Date/Time Associated Diagnosis Comments SCREENING MAMMOGRAM BILATERAL W SARAI Schedule Routine, Read Routine (OP Routine) 06/25/2023 10:08 AM CDT Encounter for screening mammogram for malignant neoplasm of breast THINPREP IMAGING PAP AND HPV MRNA E6/E7 REFLEX HPV 16,18/45 Routine 05/25/2021 4:00 PM CDT from Last 3 Months or Most Recently Relevant to Health Maintenance Results * Screening Mammogram Bilateral W Sarai (06/25/2023 10:08 AM CDT) Anatomical Region Laterality Modality Breast Bilateral Mammography Narrative 06/25/2023 1:17 PM CDT BILATERAL DIGITAL MAMMOGRAPHY The present examination has been compared to prior imaging studies dated 18 June 2022, 23 May 2020. Mammography Findings CAD (computer-aided detection) software was utilized. There are scattered fibroglandular densities that could obscure a lesion on mammography. No masses, significant calcifications or other abnormalities are seen. Impression There is no mammographic evidence of malignancy. Screening mammogram in 1 year is recommended. BI-RADS Category 1: Negative PATIENT LETTER SENT May Ortiz MD IMG MAMMO PROCEDURES Final Result * ThinPrep(R) Imaging Pap and HPV mRNA E6/E7 Reflex HPV 16,18/45 (05/25/2021 4:00 PM CDT) CLINICAL INFORMATION: [facility] Comment:03/26/2016 NILM HPV NEG LMP [facility] Comment:[id number] Previous Pap [facility] Comment:INFORMATION NOT PROV IDED Prev. Bx [facility] Comment:INFORMATION NOT PROV IDED SOURCE: [facility] Comment:Cervix, Endocervix Pap, specimen adequacy [facility] Comment: Satisfactory for evaluation. Endocervical/transformation zone component present. HPV interp [facility] Comment:Negative for intraep ithelial lesion or malignancy. COMMENTS [facility] Comment: This Pap test has been evaluated with computer assisted technology. Aircraft Load Controller [facility] Comment: YOUSSEF, CT(ASCP) CT Screening location: [facility] [address] [place] [address] Comment [facility] Comment: EXPLANATORY NOTE: The Pap is a screening test for cervical cancer. It is not a diagnostic test and is subject to false negative and false positive results. It is most reliable when a satisfactory sample, regularly obtained, is submitted with relevant clinical findings and history, and when the Pap result is evaluated along with historic and current clinical information. Human papillomavirus RNA, High Risk E6/E7 Not Detected Not Detected [facility] Comment: Methodology: Hardwood Floor Finisher-Mediated Amplification This assay detects E6/E7 viral messenger RNA (mRNA) from 14 high-risk HPV types (16,18,31,33,35,39,45,51,52,56,58,59,66,68). The analytical performance characteristics of this assay have been determined by [facility]. The modifications have not been cleared or approved by the FDA. This assay has been validated pursuant to the CLIA regulations and is used for clinical purposes. For additional information, please refer to http://education.TapClicks/faq/CRK360a5 (This link if provided for information/ educational purposes only.) 05/25/2021 4:00 PM CDT 05/26/2021 2:29 AM CDT Narrative [facility] - 05/30/2021 9:15 AM CDT FASTING: UNKNOWN Tomasa Velazquez DERRICK HELPER LAB CYTOLOGY ORDERABLES F inal Result [facility] [address] [place] [address] [facility] [address] [place] [address] from Last 3 Months or Most Recently Relevant to [place] [address] [place] [address] [address] [place] [address] [facility] [employer] Care Teams Industrial Painter Relationship Specialty Start Date End Date Lacey Mcdowell MD PCP - General 12/08/12
--- OUTSIDE RECORDS SUMMARY | 2024-09-11 10:43 | XMS_ITS | Encounter Summary ---
Author Organization [facility] Address [address] [place] [address] Care Team Providers Care Manager Chinese Name Role Phone Lacey Mcdowell MD Primary Care Provider [phone] Reason for Visit * Reason Comments Gynecologic Exam Encounter Details Date Type Department Care Team (Late st Contact Info) Description 05/25/2021 3:30 PM CDT Office Visit [facility] [address] [place] [id number] Tomasa Velazquez, PILE FABRIC KNITTER [address] [address] Routine gynecological examination (Primary Dx); Encounter for screening mammogram for malignant neoplasm of breast; Screening for malignant neoplasm of cervix Social History Tobacco Use Types Packs/Day Years Used Date Smoking Tobacco: Never Smokeless Tobacco: Never Alcohol Use Standard Drinks/Week Comments No 0 (1 standard drink = 0.6 oz pur e alcohol) Comments No Sex and Gender Information Value Date Recorded Sex Assigned at Not on file 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 Well Woman Exam Subjective: Marisela Kerns is a 51 y.o. 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 Last Pap 04/05/16 was NILM, HR HPV negative. Denies h/o abnormal. Mammogram 05/23/20 was normal. ?? is s/p vasectomy. Menses are q 3-4 weeks, x 4 days. Wears a tampon and pad and changes protection every 3-4 hours. She did skip one month last month, but reports she was under a lot of stress. Denies vasomotor symptoms. Denies any vaginal or urinary concerns. Menstrual History: Patient's last menstrual period was 05/06/2021. Sexual History: OB History 4 Para 3 Term 3 0 AB 1 Living 3 SAB TAB Ectopic Multiple Live Births # Outcome Date GA Labor/2nd Weight Sex Delivery Anes PTL Lv A1 A5 1 Term 2 Term 3 Term 4 AB Past Medical History: Diagnosis Date ??? HX OTHER MEDICAL Current Outpatient Medications: ??? fluticasone propionate (FLONASE) 50 mcg/actuation nasal spray, INT TWO SPRAYS IEN D, Disp: , Rfl: ??? albuterol HFA (PROVENTIL HFA,VENTOLIN HFA) 90 mcg/actuation inhaler, inhale 2 puff by inhalation route every 4 - 6 hours as needed, Disp: 0 Inhaler, Rfl: 0 ??? cetirizine (ZyrTEC) 10 mg tablet, 10 mg., Disp: , Rfl: 0 ??? escitalopram (LEXAPRO) 5 mg tablet, TK 1 T PO D, Disp: , Rfl: 0 ??? naproxen sodium (ALEVE) 220 mg capsule, 220 mg., Disp: , Rfl: 0 ??? simvastatin (ZOCOR) 20 mg tablet, TK ONE T PO D, Disp: , Rfl: 2 Allergies Allergen Reactions ??? Guaifenesin ??? Ibuprofen Family History Problem Relation Age of Onset ??? Hypertension Mother Hypertension; ??? Hypertension Father Hypertension; ??? Hyperlipidemia Father Hyperlipidemia; ??? Diabetes Other Family history of Diabetes mellitus; Type 2 ??? Breast cancer Father's Sister Cancer, breast; Social History Socioeconomic History ??? Marital status: Spouse name: Casey Kerns ??? Number of children: 3 ??? Years of education: None ??? Highest education level: None Occupational History ??? 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 Smoking status: Never Smoker ??? Smokeless tobacco: Never Used Substance and Sexual Activity ??? Alcohol use: No ??? Drug use: No ??? Sexual activity: Yes Partners: Male control/protection: Vasectomy Other Topics Concern ??? None Social History Narrative ??? None Social Determinants of Health Financial Resource Strain: ??? Difficulty of Paying Living Expenses: Not on file Food Insecurity: ??? Worried About Running Out of Food in the Last Year: Not on file ??? Ran Out of Food in the Last Year: Not on file Transportation Needs: ??? Lack of Transportation (Medical): Not on file ??? Lack of Transportation (Non-Medical): Not on file Physical Activity: ??? Days of Exercise per Week: Not on file ??? Minutes of Exercise per Session: Not on file Stress: ??? Feeling of Stress : Not on file Social Connections: ??? Frequency of Communication with Friends and Family: Not on file ??? Frequency of Social Gatherings with Friends and Family: Not on file ??? Attends Sabianist Services: Not on file ??? Active Member of Clubs or Organizations: Not on file ??? Attends Club or Organization Meetings: Not on file ??? Marital Status: Not on file Intimate Partner Violence: ??? Fear of Current or Ex-Partner: Not on file ??? Emotionally Abused: Not on file ??? Physically Abused: Not on file ??? Sexually Abused: Not on file Review of Systems Constitutional: Negative for fatigue, fever and unexpected weight change. Respiratory: Negative for shortness of breath and wheezing. Cardiovascular: Negative for chest pain and palpitations. Gastrointestinal: Negative for abdominal pain, blood in stool, nausea and vomiting. Genitourinary: Negative for dysuria, frequency, hematuria, urgency, vaginal bleeding and vaginal discharge. Skin: Negative for rash. Objective: BP 126/78 Ht 160 cm (5' 3 ) Wt 220 lb (99.8 kg) LMP 05/06/2021 BMI 38.97 kg/m?? Physical Exam Constitutional: Appearance: She is well-developed. Cardiovascular: Rate and Rhythm: Normal rate and regular rhythm. Pulmonary: Effort: Pulmonary effort is normal. Breath sounds: Normal breath sounds. Chest: Breasts: Right: No mass or tenderness. Left: No mass or tenderness. Abdominal: Palpations: Abdomen is soft. Tenderness: There is no abdominal tenderness. Genitourinary: Rectum normal, vagina normal and uterus normal. Right labia: normal. Left Labia: normal. No vaginal discharge. Right adnexa: normal. Left adnexa: normal. Cervix: Normal exam. Genitourinary Comments: Pap collected. Musculoskeletal: General: No tenderness. Skin: General: Skin is warm and dry. Neurological: Mental Status: She is alert and oriented to person, place, and time. Psychiatric: Behavior: Behavior normal. Assessment and Plan: Marisela Kerns is a 51 y.o. female who presents for a well woman exam. 1. Routine gynecological examination Screening guidelines reviewed. Pap collected. Mammogram ordered. Will follow up annually or prn. 2. Encounter for screening mammogram for malignant neoplasm of breast - Screening Mammogram 2D Bilateral; Future 3. Screening for malignant neoplasm of cervix Recommended screenings and preventive care discussed: Breast cancer: Self Breast Exams, Mammogram: Indicated Pap smear: Performed Diet and exercise discussed. Contraception reviewed. Tomasa Velazquez NP 05/25/2021 Cosigned by May Ortiz MD at 06/01/2021 11:12 AM CDT documented in this encounter Plan of Treatment Not on file documented as of this encounter Visit Diagnoses Diagnosis Routine gynecological examination- Primary Encounter for screening mammogram for malignant neoplasm of breast Screening for malignant neoplasm of cervix Screening for malignant neoplasm of the cervix documented in this encounter Care Teams Manager Chinese Relationship Specialty Start Date End Date Lacey Mcdowell MD PCP - General 12/08/12 documented as of this encounter
--- OUTSIDE RECORDS SUMMARY | 2024-09-11 10:43 | XMS_ITS | Encounter Summary ---
Author Organization [facility] Address [address] [place] [address] Phone Care Team Providers Care Edge Blacker Name Role Phone Lacey Mcdowell MD Primary Care Provider [phone] Encounter Details Date Type Department Care Team (Late st Contact Info) Description 06/13/2017 Telephone [facility] [address] [place] [address] Ruby Lynn LPN Social History Tobacco Use Types Packs/Day Years Used Date Smoking Tobacco: Never Smokeless Tobacco: Never Alcohol Use Standard Drinks/Week Comments No 0 (1 standard drink = 0.6 oz pur e alcohol) Comments No Sex and Gender Information Value Date Recorded Sex Assigned at Not on file 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 * Telephone Encounter - Ruby Lynn LPN - 06/13/2017 10:20 AM CDT ----- Message from May Ortiz MD sent at 06/13/2017 10:08 AM CDT ----- Please notify patient of normal urine testing. documented in this encounter Plan of Treatment Not on file documented as of this encounter Visit Diagnoses Not on filedocumented in this encounter Care Teams Edge Blacker Relationship Specialty Start Date End Date Lacey Mcdowell MD PCP - General 12/08/12 documented as of this encounter
--- OUTSIDE RECORDS SUMMARY | 2024-09-11 10:43 | XMS_ITS | Encounter Summary ---
Author Organization [facility] Address [address] [place] [address] Care Team Providers Care Upset Operator Name Role Phone Lacey Mcdowell MD Primary Care Provider [phone] Reason for Referral * (Routine) - Closed Specialty Diagnoses / Procedures Referred By Olive briceño Referred To Contact Diagnoses Obstructive sleep apnea Procedures Portable/Home Sleep Study Lacey Mcdowell MD Phone: tel: fax: Referral ID Status Reason Start Date Expiration Date Visits Re quested Visits Authorized [id number] Closed 04/23/2019 11/01/2020 1 1 Reason for Visit * (Routine) - Closed Specialty Diagnoses / Procedures Referred By Olive briceño Referred To Contact Diagnoses Obstructive sleep apnea Procedures Portable/Home Sleep Study Lacey Mcdowell MD Phone: tel: fax: Referral ID Status Reason Start Date Expiration Date Visits Re quested Visits Authorized [id number] Closed 04/23/2019 11/01/2020 1 1 Encounter Details Date Type Department Care Team (Late st Contact Info) Description 05/04/2019 9:00 AM CDT - 05/04/2019 11:59 PM CDT Hospital Encounter [facility] [address] [place] [address] Lacey Mcdowell MD [place] [address] Obstructive sleep apnea Discharge Disposition: Discharge to home or self care Social History Tobacco Use Types Packs/Day Years Used Date Smoking Tobacco: Never Smokeless Tobacco: Never Alcohol Use Standard Drinks/Week Comments No 0 (1 standard drink = 0.6 oz pur e alcohol) Comments No Sex and Gender Information Value Date Recorded Sex Assigned at Not on file 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 0 12/04/2011 escitalopram (LEXAPRO) 5 mg tablet TK 1 T PO D 0 03/08/2019 naproxen sodium (ALEVE) 220 mg capsule 220 mg. 0 12/04/2011 simvastatin (ZOCOR) 20 mg tablet TK ONE T PO D 2 03/06/2019 3 documented as of this encounter Discharge Disposition Disposition Code Departure Means Destination Discharge to home or self care documented in this encounter Progress Notes * Elaine Rubio MD - 05/04/2019 11:59 PM CDT Indication for study: Ms. Kerns is a 49-year-old with chief complaints of snoring, unrefreshing sleep, cost clerk headaches, and excessive daytime sleepiness. Patient's [place] Sleepiness Scale score is 12. Vital statistics: Age: 49 years Height: 63 in BMI: 37.0 Procedure: The patient underwent a single night diagnostic study utilizing unattended FDA approved ResMed apnea link home air portable monitoring device investigating for obstructive sleep apnea. Thepatient was provided instruction of the device and application by the registered hyperbaric technologist at the [facility]. The study included channels of heart rate, body position, respiratory effort, respiratory airflow, snoring and oxygen saturation analysis. The study was a analyzed by the hyperbaric technologist and the raw data was reviewed by the board certified sleep physician. Description of polysomnography findings: The patient had 7 hours and 48 minutes of monitored time. 7 hours and 42 minutes of flow evaluation was present. 7 hours and 37 minutes of oxygen saturation analysis was present. The apnea-hypopnea index was 2.2. The AHI was 2.4 in supine position, and 0 in the nonsupine position. 5 apneas and 12 hypopneas were recorded. Baseline oxygen saturation 98%. Lowest oxygen saturation 92%. Average oxygen saturation 97%. The oxygen desaturation index was 2.0. The 15 oxygen desaturation episodes recorded. Pulse evaluation revealed maximum 102 beats per minute, minimum 60 beats per minute and average of 70 beats per minute. Impression: The above polysomnography reveals evidence of apneas and hypopneas. The present study does not meet the criteria obstructive sleep apnea syndrome. documented in this encounter Plan of Treatment Scheduled Orders Name Type Priority Associated Diagnoses Orde r Schedule Portable/Home Sleep Study Sleep Center Routine Obstructive sleep apnea Once for 1 Occurrences starting 05/03/2019 until 05/03/2019 documented as of this encounter Visit Diagnoses Diagnosis Obstructive sleep apnea Obstructive sleep apnea (adult) (pediatric) documented in this encounter Care Teams Upset Operator Relationship Specialty Start Date End Date Lacey Mcdowell MD PCP - General 12/08/12 documented as of this encounter
--- OUTSIDE RECORDS SUMMARY | 2024-09-11 10:43 | XMS_ITS | Encounter Summary ---
Author Organization [facility] Address [address] [place] [address] Care Team Providers Care Residential Insurance Inspector Name Role Phone Lacey Mcdowell MD Primary Care Provider [phone] Encounter Details Date Type Department Care Team (Late st Contact Info) Description 05/25/2021 Orders Only [facility] [address] [place] [address] Tomasa Velazquez, FORM MAKER PLASTER [address] [address] Social History Tobacco Use Types Packs/Day Years Used Date Smoking Tobacco: Never Smokeless Tobacco: Never Alcohol Use Standard Drinks/Week Comments No 0 (1 standard drink = 0.6 oz pur e alcohol) Comments No Sex and Gender Information Value Date Recorded Sex Assigned at Not on file 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 documented as of this encounter Plan of Treatment Not on file documented as of this encounter Procedures Procedure Name Priority Date/Time Associated Diagnosis Comments THINPREP IMAGING PAP AND HPV MRNA E6/E7 REFLEX HPV 16,18/45 Routine 05/25/2021 4:00 PM CDT documented in this encounter Results * ThinPrep(R) Imaging Pap and HPV mRNA E6/E7 Reflex HPV 16,18/45 (05/25/2021 4:00 PM CDT) CLINICAL INFORMATION: [facility] Comment:03/26/2016 NILM HPV NEG LMP [facility] Comment:[id number] Previous Pap [facility] Comment:INFORMATION NOT PROV IDED Prev. Bx [facility] Comment:INFORMATION NOT PROV IDED SOURCE: [facility] Comment:Cervix, Endocervix Pap, specimen adequacy [facility] Comment: Satisfactory for evaluation. Endocervical/transformation zone component present. HPV interp [facility] Comment:Negative for intraep ithelial lesion or malignancy. COMMENTS [facility] Comment: This Pap test has been evaluated with computer assisted technology. [facility] Comment: SHAY YOUSSEF(ASCP) CT Screening location: [address] [place] [address] Dr. Alejandra, [place] [address] Comment [facility] Comment: EXPLANATORY NOTE: The Pap is [...] High Risk E6/E7 Not Detected Not Detected [facility] Comment: Methodology: Wool Hat Sanding Machine Operator-Mediated Amplification This assay detects E6/E7 viral messenger RNA (mRNA) from 14 high-risk HPV types (16,18,31,33,35,39,45,51,52,56,58,59,66,68). The analytical performance characteristics of this assay have been determined by [facility]. The modifications have not been cleared or approved by the FDA. This assay has been validated pursuant to the CLIA regulations and is used for clinical purposes. For additional information, please refer to http://education.Healint.PeptiVir/faq/JNA045h1 (This link if provided for information/ educational purposes only.) 05/25/2021 4:00 PM CDT 05/26/2021 2:29 AM CDT Narrative [facility] - 05/30/2021 9:15 AM CDT FASTING: UNKNOWN Tomasa Velazquez FORM MAKER PLASTER LAB CYTOLOGY ORDERABLES F inal Result [facility] [address] [place] [address] [facility] [address] [place] [address] documented in this encounter Visit Diagnoses Not on filedocumented in this encounter Care Teams Residential Insurance Inspector Relationship Specialty Start Date End Date Lacey Mcdowell MD PCP - General 12/08/12 documented as of this encounter
--- OUTSIDE RECORDS SUMMARY | 2024-09-11 10:43 | XMS_ITS | Encounter Summary ---
Author Organization [facility] Address [address] [place] [address] Care Team Providers Care Geophysical Drafter Name Role Phone Lacey Mcdowell MD Primary Care Provider [phone] Encounter Details Date Type Department Care Team (Late st Contact Info) Description 06/19/2022 Telephone [facility] [address] [place] [address] Ruby Lynn LPN Social History Tobacco Use Types Packs/Day Years Used Date Smoking Tobacco: Never Smokeless Tobacco: Never Alcohol Use Standard Drinks/Week Comments No 0 (1 standard drink = 0.6 oz pur e alcohol) Comments No Sex and Gender Information Value Date Recorded Sex Assigned at Not on file 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 * Telephone Encounter - Ruby Lynn LPN - 06/19/2022 1:25 PM CDT ----- Message from May Ortiz MD sent at 06/19/2022 12:43 PM CDT ----- Please notify patient blood testing for herpes is negative. documented in this encounter Plan of Treatment Not on file documented as of this encounter Visit Diagnoses Not on filedocumented in this encounter Care Teams Geophysical Drafter Relationship Specialty Start Date End Date Lacey Mcdowell MD PCP - General 12/08/12 documented as of this encounter
--- OUTSIDE RECORDS SUMMARY | 2024-09-11 10:43 | XMS_ITS | Encounter Summary ---
Author Organization [facility] Address [address] [place] [address] Care Team Providers Care Marketing Proposal Coordinator Name Role Phone Lacey Mcdowell MD Primary Care Provider [phone] Encounter Details Date Type Department Care Team (Late st Contact Info) Description 02/22/2022 Orders Only [facility] Gastroenterology at [address] [place] [address] Thuy Lance MD [address] [place] [address] [address] [place] [address] Encounter for screening colonoscopy (Primary Dx) Social History Tobacco Use Types Packs/Day Years Used Date Smoking Tobacco: Never Smokeless Tobacco: Never Alcohol Use Standard Drinks/Week Comments No 0 (1 standard drink = 0.6 oz pur e alcohol) Comments No Sex and Gender Information Value Date Recorded Sex Assigned at Not on file 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
--- OUTSIDE RECORDS SUMMARY | 2024-09-11 10:43 | XMS_ITS | Encounter Summary ---
Author Organization [facility] Address [address] [place] [address] [place] [address] Care Team Providers Care Certified Adapted Physical Educator Name Role Phone Unavailable Primary Care Provider Unavailabl e Encounter Details Date Type Department Care Team (Latest Contact Info) Description 08/06/2023 Travel Social History Tobacco Use Types Packs/Day [...]
--- OUTSIDE RECORDS SUMMARY | 2024-09-11 10:43 | XMS_ITS | Encounter Summary ---
Author Organization [facility] Healthcare Address [address] [place] [address] Care Team Providers Care Product Management Intern Name Role Phone Lacey Mcdowell MD Primary Care Provider [phone] Encounter Details Date Type Department Care Team (Late st Contact Info) Description 06/25/2023 9:30 AM CDT Office Visit [facility] [address] [place] [phone] May Ortiz MD [address] [place] [address] Encounter for gynecological examination without abnormal finding (Primary Dx); Menopausal symptoms; Chronic vulvitis; Urgency of urination Social History Tobacco Use Types Packs/Day Years Used Date Smoking Tobacco: Never Smokeless Tobacco: Never Alcohol Use Standard Drinks/Week Comments No 0 (1 standard drink = 0.6 oz pur e alcohol) Comments No Sex and Gender Information Value Date Recorded Sex Assigned at Not on file Legal Sex Female 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 documented as of this encounter Last Filed Vital Signs Vital Sign Reading Time Taken Comments Blood Pressure 142/90 06/25/2023 9:22 AM CDT Pulse - - Temperature - - Respiratory Rate - - Oxygen Saturation - - Inhaled Oxygen Concentration - - Weight 100.2 kg (221 lb) 06/25/2023 9:22 AM CDT Height 160 cm (5' 3 ) 06/25/2023 9:22 AM CDT Body Mass Index 39.15 06/25/2023 9:22 AM CDT documented in this encounter Ordered Prescriptions Prescription Sig Dispense Quantity Refills Last Filled Start Date End Date clotrimazole-betam ethasone (LOTRISONE) lotionIndications: Chronic vulvitis Apply topically 2 (two) times a day as needed (rash) 30 mL 3 06/25/2023 documented in this encounter Progress Notes * May Ortiz MD - 06/25/2023 9:30 AM CDT Well Woman Exam Subjective: Marisela Kerns is a 53 y.o. who presents for annual glacing machine tender exam. Last Pap 05/25/21 was NILM, HPV negative. Denies h/o abnormal. Mammogram was normal 06/18/22 and is scheduled for later today. Menses are less regular the last year. LMP 05/23/23. Prior to this was March and then 3-4 months before that. She has stable menorrhagia - two days that are heavy, changing super plus tampon and a pad q2 hours and then tolerable. Denies dysmenorrhea but has continued mid cycle RLQ pain, associated with ovulation. is s/p vasectomy. She did noticed hot flashes more over the summer but better now. She is c/o urinary frequency with urgency, occasional urge incontinence when not to the restroom intimes. Wears liners regularly. Only drinks about one large container of water today. No caffeinated beverages. Last year she was prescribed Lotrisone for fungal dermatitis in groin area. She forgot about prescription and never took. Still has intermittent itching, worse with sweating. Menstrual History: Patient's last menstrual period was 05/23/2023. Sexual History: OB History 4 Para 3 Term 3 0 AB 1 Living 3 SAB IAB Ectopic Multiple Live Births # Outcome Date GA Labor/2nd Weight Sex Delivery Anes PTL Lv A1 A5 1 Term 2 Term 3 Term 4 AB Past Medical History: Diagnosis Date Hypertension Current Outpatient Medications: albuterol HFA (PROVENTIL HFA,VENTOLIN HFA) 90 mcg/actuation inhaler, inhale 2 puff by inhalation route every 4 - 6 hours as needed, Disp: 0 Inhaler, Rfl: 0 cetirizine (ZyrTEC) 10 mg tablet, 10 mg., Disp: , Rfl: 0 clotrimazole-betamethasone (LOTRISONE) lotion, Apply topically 2 (two) times a day as needed (rash), Disp: 30 mL, Rfl: 2 escitalopram (LEXAPRO) 5 mg tablet, TK 1 T PO D, Disp: , Rfl: 0 fluticasone propionate (FLONASE) 50 mcg/actuation nasal spray, INT TWO SPRAYS IEN D, Disp: , Rfl: lisinopriL (PRINIVIL,ZESTRIL) 5 mg tablet, Take 1 tablet (5 mg total) by mouth daily, Disp: , Rfl: Livalo 1 mg tablet, Take 1 tablet (1 mg total) by mouth 2 (two) times a week, Disp: , Rfl: metoprolol XL (TOPROL-XL) 25 mg extended release tablet, Take 1 tablet (25 mg total) by mouth daily, Disp: , Rfl: naproxen sodium (ALEVE) 220 mg capsule, 220 mg., Disp: , Rfl: 0 omeprazole (PriLOSEC) 40 mg capsule, Take 1 capsule (40 mg total) by mouth daily, Disp: , Rfl: azelastine (ASTELIN) 137 mcg (0.1 %) nasal spray, Administer 2 sprays into each nostril 2 (two) times a day Use in each nostril as directed, Disp: 120 mL, Rfl: 11 Allergies Allergen Reactions Guaifenesin Ibuprofen Family History Problem Relation Age of Onset Hypertension Mother Hypertension; Hypertension Father Hypertension; Hyperlipidemia Father Hyperlipidemia; Diabetes Other Family history of Diabetes mellitus; Type 2 Breast cancer Father's Sister Cancer, breast; Social History Tobacco Use Smoking status: Never Smokeless tobacco: Never Substance and Sexual Activity Drug use: No Sexual activity: Yes Partners: Male control/protection: Vasectomy Alcohol Use: Not on file Review of Systems Constitutional: Negative for fatigue, fever and unexpected weight change. Respiratory: Negative for shortness of breath and wheezing. Cardiovascular: Negative for chest pain and palpitations. Gastrointestinal: Negative for abdominal pain, blood in stool, nausea and vomiting. Genitourinary: Positive for frequency. Negative for dysuria, hematuria, urgency, vaginal bleeding and vaginal discharge. Skin: Negative for rash. Objective: BP 142/90 Ht 160 cm (5' 3 ) Wt 221 lb (100.2 kg) LMP 05/23/2023 BMI 39.15 kg/m?? Physical Exam Constitutional: Appearance: She is well-developed. Cardiovascular: Rate and Rhythm: Normal rate and regular rhythm. Pulmonary: Effort: Pulmonary effort is normal. Breath sounds: Normal breath sounds. Chest: Breasts: Right: No mass. Left: No mass. Abdominal: Palpations: Abdomen is soft. Tenderness: There is no abdominal tenderness. Genitourinary: Vagina normal and uterus normal. Right labia: rash. There is no lesion on the right labia. Left Labia: rash. There is no lesion on the left labia. No vaginal discharge. Right adnexa: normal. Left adnexa: normal. Cervix: Normal exam. Genitourinary Comments: Dry macular erythematous rash extending along bilateral lower vulva onto upper thighs. Musculoskeletal: General: No tenderness. Skin: General: Skin is warm and dry. Neurological: Mental Status: She is alert and oriented to person, place, and time. Psychiatric: Behavior: Behavior normal. Assessment and Plan: Marisela Kerns is a 53 y.o. female who presents for a well woman exam. 1. Encounter for gynecological examination without abnormal finding Pap due for repeat by 2025. Keep mammogram as scheduled. Return for annual or PRN. 2. Menopausal symptoms Continue to track cycles. Reviewed menopause is after a year of amenorrhea. Also discussed management options for vasomotor symptoms including lifestyle modification, OTC herbal supplements. 3. Chronic vulvitis She plans to try medicated lotion now. - clotrimazole-betamethasone (LOTRISONE) lotion; Apply topically 2 (two) times a day as needed (rash) Dispense: 30 mL; Refill: 3 4. Urgency of urination Discussed management options including lifestyle modification or medication. Recommend bladder training/timed voiding and f/u if symptoms continue or worsen and interested in trial of medication. Recommended screenings and preventive care discussed: Breast cancer: Self Breast Exams, Mammogram: Indicated Pap smear: Not Indicated Diet and exercise discussed. Contraception reviewed. May Ortiz MD 06/25/2023 documented in this encounter Plan of Treatment Not on file documented as of this encounter Visit Diagnoses Diagnosis Encounter for gynecological examination without abnormal finding- Primary Menopausal symptoms Symptomatic menopausal or female climacteric states Chronic vulvitis Unspecified vaginitis and vulvovaginitis Urgency of urination documented in this encounter Discontinued Medications Medication Sig Discontinue Reason Start Date End Da te simvastatin (ZOCOR) 20 mg tablet TK ONE T PO D Formulary change 03/06/2019 06/25/2023 famotidine (PEPCID) 40 mg tabletIndications:Laryn gopharyngeal reflux (LPR) Take 1 tablet (40 mg total) by mouth nightly 07/16/2021 06/25/2023 atorvastatin (LIPITOR) 10 mg tablet Take 0.5 tablets (5 mg total) by mouth daily Alternate therapy 06/25/2023 clotrimazole-betamethas one (LOTRISONE) lotionIndications:Acute vulvitis Apply topically 2 (two) times a day as needed (rash) Reorder 06/18/2022 06/25/2023 documented as of this encounter Historical Medications * This list may reflect changes made after this encounter. lisinopriL (PRINIVIL,ZESTRIL ) 5 mg tablet Take 1 tablet (5 mg total) by mouth daily 04/07/2023 Livalo 1 mg tablet Take 1 tablet (1 mg total) by mouth 2 (two) times a week 05/24/2023 omeprazole (PriLOSEC) 40 mg capsule Take 1 capsule (40 mg total) by mouth daily 05/23/2023 atorvastatin (LIPITOR) 10 mg tablet Take 0.5 tablets (5 mg total) by mouth daily 06/25/2023 added in this encounter Care Teams Product Management Intern Relationship Specialty Start Date End Date Lacey Mcdowell MD PCP - General 12/08/12 documented as of this encounter
--- OUTSIDE RECORDS SUMMARY | 2024-09-11 10:43 | XMS_ITS | Encounter Summary ---
Author Organization [facility] Address [address] [place] [id number] Care Team Providers Care Cat Sitter Name Role Phone Lacey Mcdowell MD Primary Care Provider [phone] Reason for Visit * Reason Comments COVID-19 EVALUATION scratchy throat, hea dache on Friday, + exp, vaccinated Encounter Details Date Type Department Care Team (Late st Contact Info) Description 09/26/2021 9:30 AM CHIEF OPERATOR HYDROFORMER Office Visit [facility] [address] [place] [phone] Riana Farnsworth, BRANDY [address] [place] [address] Close exposure to COVID-19 virus (Primary Dx); COVID-19 ruled out by laboratory testing Social History Tobacco Use Types Packs/Day Years Used Date Smoking Tobacco: Never Smokeless Tobacco: Never Alcohol Use Standard Drinks/Week Comments No 0 (1 standard drink = 0.6 oz pur e alcohol) Comments No Sex and Gender Information Value Date Recorded Sex Assigned at Not on file Legal Sex Female 11:21 AM CHIEF OPERATOR HYDROFORMER Gender Identity Not on file Sexual Orientation Not on file 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 documented as of this encounter Last Filed Vital Signs Vital Sign Reading Time Taken Comments Blood Pressure 144/90 09/26/2021 9:28 AM CHIEF OPERATOR HYDROFORMER Pulse 97 09/26/2021 9:28 AM CHIEF OPERATOR HYDROFORMER Temperature 36.5 ??C (97.7 ??F) 09/26/2021 9:28 AM CS T Respiratory Rate 16 09/26/2021 9:28 AM CHIEF OPERATOR HYDROFORMER Oxygen Saturation 97% 09/26/2021 9:28 AM CHIEF OPERATOR HYDROFORMER Inhaled Oxygen Concentration - - Weight 101.2 kg (223 lb) 09/26/2021 9:28 AM CHIEF OPERATOR HYDROFORMER Height 160.7 cm (5' 3.25 ) 09/26/2021 9:28 AM CS T Body Mass Index 39.19 09/26/2021 9:28 AM CHIEF OPERATOR HYDROFORMER documented in this encounter Progress Notes * Riana Farnsworth, LEAD MANUFACTURING TECHNICIAN - 09/26/2021 9:30 AM CST Images from the original note were not included. Subjective/Objective Patient: Marisela Kerns is a 51 y.o. female followed by Lacey Mcdowell MD Chief Complaint Patient presents with ??? COVID-19 EVALUATION scratchy throat, headache on Friday, + exp, vaccinated Marisela Kerns presents to clinic with c/o sore throat, headache x 2 days. Reports that she needsa negative COVID test to return to work. Pertinent history: obesity. Reports known/confirmed exposure to COVID-19. States her eldest son (17 y/o) is currently COVID+. Reports COVID inoculation. Denies having previous history of COVID diagnosis. Patient has attempted nothing for symptom alleviation prior to arrival to clinic. Denies the following: GI symptoms: nausea, vomiting, diarrhea, abdominal pain Respiratory symptoms: shortness of breath, chest discomfort, cough, rhinorrhea, congestion Generalized symptoms of infection: fever, excessive fatigue, generalized malaise, ear ache Review of Systems Constitutional: Negative for chills and fever. HENT: Positive for sore throat. Negative for congestion, ear pain, rhinorrhea, sinus pressure, sinus pain and sneezing. Eyes: Negative. Respiratory: Negative for cough, chest tightness, shortness of breath and wheezing. Cardiovascular: Negative for chest pain. Gastrointestinal: Negative for constipation, diarrhea, nausea and vomiting. Endocrine: Negative. Genitourinary: Negative. Musculoskeletal: Negative for arthralgias and myalgias. Skin: Negative. Allergic/Immunologic: Negative for environmental allergies. Neurological: Positive for headaches. Hematological: Negative for adenopathy. Psychiatric/Behavioral: Negative. Physical Exam Vitals and nursing note reviewed. Constitutional: Appearance: Normal appearance. She is obese. HENT: Head: Normocephalic and atraumatic. Right Ear: Tympanic membrane, ear canal and external ear normal. Left Ear: Tympanic membrane, ear canal and external ear normal. Nose: Nose normal. No congestion or rhinorrhea. Mouth/Throat: Mouth: Mucous membranes are moist. Pharynx: Oropharynx is clear. Posterior oropharyngeal erythema present. Cardiovascular: Rate and Rhythm: Normal rate and regular rhythm. Heart sounds: Normal heart sounds. Pulmonary: Effort: Pulmonary effort is normal. Breath sounds: Normal breath sounds. Musculoskeletal: General: Normal range of motion. Cervical back: Neck supple. Skin: General: Skin is warm and dry. Neurological: General: No focal deficit present. Mental Status: She is alert and oriented to person, place, and time. Psychiatric: Mood and Affect: Mood normal. Behavior: Behavior normal. Vitals: 09/26/21 0928 BP: 144/90 BP Location: Left arm Patient Position: Sitting Pulse: 97 Resp: 16 Temp: 36.5 ??C (97.7 ??F) TempSrc: Temporal SpO2: 97% Weight: 101.2 kg (223 lb) Height: 160.7 cm (5' 3.25 ) Social History Tobacco Use Smoking Status Never Smoker Smokeless Tobacco Never Used Assessment/Plan Diagnoses and all orders for this visit: Close exposure to COVID-19 virus (Primary) - POC Influenza A/B, COVID-19 antigen COVID-19 ruled out by laboratory testing - POC Influenza A/B, COVID-19 antigen Orders Placed This Encounter Procedures ??? POC Influenza A/B, COVID-19 antigen Order Specific Question: Is the Patient experiencing symptoms consistent with COVID? Answer: Yes Order Specific Question: Date of Symptom Onset Answer: 09/24/2021 Order Specific Question: Is the patient hospitalized? Answer: No Order Specific Question: Is the patient admitted to an ICU? Answer: No Order Specific Question: Does the patient currently work in a healthcare facility with direct patient contact? Answer: No Order Specific Question: Is the patient a resident of a congregate care or living setting? Answer: No Order Specific Question: Is this the first COVID-19 test for this patient? Answer: No Order Specific Question: ? Answer: No Results for orders placed or performed in visit on 09/26/21 POC Influenza A/B, COVID-19 antigen Result Value Ref Range Inflenza A Ag, POC Negative Influenza B Ag, POC Negative COVID-19 Ag POC Presumptive Negative Presumptive Negative, Invalid # COVID-19 ruled out via lab testing # symptoms compatible with COVID-19 --5 day quarantine from date of symptom onset or 5 days from last known exposure --states she needs negative test to return to work --encouraged vaccination per CDC recommendations --namely OTC symptomatic treatment; Tylenol for fever/pain, cough suppressant --ED presentation w/ one or more of the following symptoms: fever uncontrolled with antipyretics, shortness of breath, chest discomfort, uncontrolled n/v/d --f/u with PCP post-quarantine if symptoms continue/worsen and to discussed vaccine options Brief: Treatment plan including expectations, follow up, and return precautions discussed with patient/parent, verbalizes understanding. Medication dosage, use, and potential adverse reactions discussed with patient/parent. Advised to follow up with PCP if symptoms do not resolve as expected or sooner if condition worsens. Signs/symptoms warranting ER evaluation reviewed. Patient and/or guardian was given an opportunity to ask questions, questions answered. ??? Patient was wearing the following PPE: mask. ??? Provider wearing the following PPE: mask, gown, gloves, face shield. Riana Farnsworth NP F OPERATOR HYDROFORMER documented in this encounter Plan of Treatment Not on file documented as of this encounter Procedures Procedure Name Priority Date/Time Associated Diagnosis Comments POC INFLUENZA A/B, COVID-19 ANTIGEN Routine 09/26/2021 9:51 AM CHIEF OPERATOR HYDROFORMER Close exposure to COVID-19 virus COVID-19 ruled out by laboratory testing documented in this encounter Results * POC Influenza A/B, COVID-19 antigen (09/26/2021 9:51 AM CHIEF OPERATOR HYDROFORMER) Pathologist [facility] Influenza A Ag, POC Negative [facility] [place] Influenza B Ag, POC Negative [facility] COVID-19 Ag POC Presumptive Negative Presumptive Negative, Invalid [facility] [place] Nasal 09/26/2021 9:51 AM CHIEF OPERATOR HYDROFORMER us Riana Farnsworth LEAD MANUFACTURING TECHNICIAN POINT OF CARE TEST ORDERABL ES Final Result [facility] [employer] [place] [address] documented in this encounter Visit Diagnoses Diagnosis Close exposure to COVID-19 virus- Primary COVID-19 ruled out by laboratory testing documented in this encounter Additional Health Concerns Infection Onset Date Last Indicated Resolved Time COVID: Suspected 09/26/2021 09/26/2021 09/26/2021 9:52 AM CHIEF OPERATOR HYDROFORMER documented as of this encounter Care Teams Cat Sitter Relationship Specialty Start Date End Date Lacey Mcdowell MD PCP - General 12/08/12 documented as of this encounter
--- OUTSIDE RECORDS SUMMARY | 2024-09-11 10:43 | XMS_ITS | Encounter Summary ---
Author Organization [facility] Address [address] [place] [address] Care Team Providers Care Shellfish Weigher Name Role Phone Lacey Mcdowell MD Primary Care Provider [phone] Reason for Visit * Diagnostic Imaging (Routine) - Closed Specialty Diagnoses / Procedures Referred By Contac t Referred To Contact Diagnoses Encounter for screening mammogram for breast cancer Procedures Screening Mammogram Bilateral W May Chaudhari MD [address] [place] [address] Phone: tel: fax: [facility] Referral ID Status Reason Start Date Expiration Date Visits Re quested Visits Authorized [id number] Closed 06/18/2022 07/18/2023 1 1 Encounter Details Date Type Department Care Team (Latest Contact Info) Description 06/18/2022 10:10 AM CDT Ancillary Procedure [facility] [address] [place] [address] Encounter for screening mammogram for breast cancer Social History Tobacco Use Types Packs/Day Years Used Date Smoking Tobacco: Never Smokeless Tobacco: Never Alcohol Use Standard Drinks/Week Comments No 0 (1 standard drink = 0.6 oz pur e alcohol) Comments No Sex and Gender Information Value Date Recorded Sex Assigned at Not on file 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 Mammography Findings CAD (computer-aided detection) software was utilized. There are scattered fibroglandular densities that could obscure a lesion on mammography. No masses, significant calcifications or other abnormalities are seen. Impression There is no mammographic evidence of malignancy. Screening mammogram in 1 year is recommended. BI-RADS Category 1: Negative PATIENT LETTER SENT May Ortiz MD IMG MAMMO PROCEDURES Final Result documented in this encounter Visit Diagnoses Diagnosis Encounter for screening mammogram for breast cancer documented in this encounter Care Teams Shellfish Weigher Relationship Specialty Start Date End Date Lacey Mcdowell MD PCP - General 12/08/12 documented as of this encounter
--- OUTSIDE RECORDS SUMMARY | 2024-09-11 10:43 | XMS_ITS | Encounter Summary ---
Author Organization [facility] Health Address [address] [place] [address] Care Team Providers Care Van Owner Operator Name Role Phone Lacey Mcdowell MD Primary Care Provider [phone] Reason for Visit * Auth/Cert (Routine) Specialty Diagnoses / Procedures Referred By Olive briceño Referred To Contact Diagnoses Carpal tunnel syndrome on left Carpal tunnel syndrome on left [G56.02] Procedures NE REVISE MEDIAN N/CARPAL TUNNEL SURG RELEASE CARPAL TUNNEL Referral ID Status Reason Start Date Expiration Date Visits Re quested Visits Authorized [id number] 1 1 Encounter Details Date Type Department Care Team (Late st Contact Info) Description 08/12/2023 11:31 AM TRAP OPERATOR - 08/12/2023 11:59 PM TRAP OPERATOR Hospital Encounter [facility] - General Surgery [address] [place] [address], [facility] [address] [place] [address] Jeremiah Silverio MD [address] [place] [address] Surgery General Discharge Disposition: Home or Self Care Social History Tobacco Use Types Packs/Day Years [...] Comments Blood Pressure 136/67 08/12/2023 2:20 PM TRAP OPERATOR Pulse 77 08/12/2023 2:20 PM TRAP OPERATOR Temperature 36.2 ??C (97.2 ??F) 08/12/2023 1:26 PM CS T Respiratory Rate 19 08/12/2023 2:20 PM TRAP OPERATOR Oxygen Saturation 95% 08/12/2023 2:20 PM TRAP OPERATOR Inhaled Oxygen Concentration - - Weight 102.6 kg (226 lb 3.2 oz) 023 12:01 PM TRAP OPERATOR Height 160 cm (5' 3 ) 08/12/2023 12:01 PM TRAP OPERATOR Body Mass Index 40.07 08/12/2023 12:01 PM TRAP OPERATOR documented in this encounter Medications at Time of Discharge Medication Sig Dispensed Refills Start Date End Date ascorbic acid (Vitamin C) 250 MG tablet Take 1 (one) tablet by mouth once daily escitalopram (Lexapro) 5 MG tablet Take 1 (one) tablet by mouth once daily 06/25/2023 HYDROcodone-acetaminophen (Rudd) 10-325 MG tabletIndications:Preop examination,Postoperative pain,Carpal tunnel syndrome [...] 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 OPERATOR documented in this encounter OR Notes * Operative - Jeremiah Silverio MD - 08/12/2023 6:24 PM CST [facility] OPERATIVE REPORT PATIENT: : SALUD MANN MR#: [id number] ADMIT DATE: 08/12/2023 CSN: [id number] DATE OF SURGERY: 08/12/2023 : 1970 PHYSICIAN: Jeremiah Silverio MD ROOM: PREOPERATIVE DIAGNOSIS: Left carpal tunnel syndrome. POSTOPERATIVE DIAGNOSIS: Left carpal tunnel syndrome. PROCEDURE PERFORMED: Left carpal tunnel release. ANESTHESIA: Cyr block. SURGEON: Dr. Silverio. INDICATIONS FOR PROCEDURE: [...] palmar fascia was identified and nicked. The Trenton elevator was passed deep to that to protect the median nerve. The distal aspect of the carpal ligament was dissected to free up the median nerve. We came out proximally and in a similar fashion, Trenton elevator passed deep to the carpal ligament to protect the median nerve and the remainder of that released. The skin was elevated. Under direct visualization, the distal forearm fascia was released with tenotomy scissors. Wound was irrigated with saline. Horizontal mattress sutures were used to close the skin. Sterile dressing was then applied and the tourniquet was released from the Cyr block after 20 minutes. There were no complications. We added another 2 cc of 0.5% plain Marcaine during the procedure. She was taken in stable condition to recovery room. Jeremiah Silverio MD CDK/MODL #: [id number] OPERATOR * Operative - Jeremiah Silverio MD - 08/12/2023 1:08 PM CST Dict # [id number] preop dx left cts Postop dx same Proc left ctr anesth pio block Surgeon michael tt 20 min ebl min complic none Disp good to rr OPERATOR documented in this encounter Plan of Treatment Not on file documented as of this encounter Procedures Procedure Name Priority Date/Time Associated Diagnosis Comments HCG URINE QUAL POCT NOTIFICATION Routine 08/12/2023 1:01 PM TRAP OPERATOR Preop examination NE REVISE MEDIAN N/CARPAL TUNNEL SURG 08/12/2023 12:44 PM TRAP OPERATOR Carpal tunnel syndrome on left HCG URINE QUALITATIVE - POCT (IP) INTERFACED Routine 08/12/2023 11:58 AM TRAP OPERATOR documented in this encounter Results * HCG URINE QUAL POCT NOTIFICATION (08/12/2023 1:01 PM TRAP OPERATOR) Comment Notification Label Only - See Separate Report 08/12/2023 1:01 PM TRAP OPERATOR [facility] Urine URINE / Unknown 11:54 AM TRAP OPERATOR Yvonne Sr DO LAB - URINALYSIS ORD ERABLES Performing Organization Address City/[facility] Co de Phone Number [facility] [address] [place] [address] * HCG URINE QUALITATIVE - POCT (IP) INTERFACED (08/12/2023 11:58 AM TRAP OPERATOR) HCG Qual Urine Negative Negative 08/12/2023 12:04 PM TRAP OPERATOR [facility] Urine URINE / Unknown 08/12/2023 1 1:58 AM TRAP OPERATOR 08/12/2023 12:04 PM TRAP OPERATOR Jeremiah Silverio MD LAB - POINT OF CARE ORDERABLES Performing Organization Address [facility] Co de Phone Number [facility] [address] [place] [address] documented in this encounter Visit Diagnoses Diagnosis Preop examination- Primary Preoperative examination, unspecified Postoperative pain Other acute postoperative pain Carpal tunnel syndrome of left wrist Carpal tunnel syndrome documented in this encounter Administered Medications Inactive Administered Medications - up to 3 most recent administrations Medication Order MAR Action Action Date Dose Rate Site lactated ringers infusion at 100 mL/hr, Intravenous, CONTINUOUS, Starting on Fri08/12/23 at 1145, Until Fri08/13/23 at 0136, Pre-op $ New Bag/Syringe 08/12/2023 12:20 PM TRAP OPERATOR 100 mL/hr lidocaine PF (Xylocaine MPF) 1 % injection 0.2 mL 0.2 mL, Infiltration, PRE-OP MULTIPLE, 3 doses, Starting on Fri08/12/23 at 1143, Until Fri08/13/23 at 0136, May be used (0.2 ml locally to anesthetize prior to insertion)., Pre-op $ Given 08/12/2023 12:11 PM TRAP OPERATOR 0.2 mL documented in this encounter Care Teams Van Owner Operator Relationship Specialty Start Date End Date Lacey Mcdowell MD [address] [place], [place] [id number] PCP - General Family Medicine 08/12/23 documented as of this encounter
--- OUTSIDE RECORDS SUMMARY | 2024-09-11 10:43 | XMS_ITS | Encounter Summary ---
Author Organization [facility] Health Address [address] [place] [address] [place] [address] Care Team Providers Care Cloth Doubling Machine Operator Name Role Phone Unavailable Primary Care Provider Unavailabl e Reason for Visit * Reason Comments Establish Care SKIDDER RUNNER - Lt hand Encounter Details Date Type Department Care Team (Late st Contact Info) Description 07/04/2023 11:00 AM CDT Office Visit [facility] [address] [place] [phone] Jeremiah Silverio MD [address] [place] [phone] Acute carpal tunnel syndrome, left (Primary Dx) Social History Tobacco Use Types Packs/Day Years Used Date Smoking Tobacco: Never Smokeless Tobacco: Never Tobacco Cessation:Counseling Given: Not Answered Alcohol Use Standard Drinks/Week Comments Never 0 (1 standard drink = 0.6 oz pur e alcohol) Sex and Gender Information Value Date Recorded Sex Assigned at Not on file Gender Identity Not on file Sexual Orientation Not on file documented as of this encounter Last Filed Vital Signs Vital Sign Reading Time Taken Comments Blood Pressure - - Pulse - - Temperature - - Respiratory Rate - - Oxygen Saturation - - Inhaled Oxygen Concentration - - Weight 98.9 kg (218 lb) 07/04/2023 11:14 AM CDT Height 160 cm (5' 3 ) 07/04/2023 11:14 AM CDT Body Mass Index 38.62 07/04/2023 11:14 AM CDT documented in this encounter Progress Notes * Julieta Nieves MA - 07/04/2023 11:10 AM CDT Chief Complaint Patient presents with ??? Establish Care SKIDDER RUNNER - Lt hand documented in this encounter H&P Notes * Jeremiah Silverio MD - 07/04/2023 12:34 PM CDT DATE OF SERVICE: 07/04/2023 SUBJECTIVE: Marisela Kerns comes in for evaluation of her left [...] says it has gotten worse since then. PAST MEDICAL HISTORY: High blood pressure, sleep apnea, and asthma. ALLERGIES: Ibuprofen which gives her diarrhea. 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 Not a smoker. No significant alcohol use. CURRENT MEDICATIONS: Include Lexapro and blood pressure medicine. PHYSICAL EXAMINATION: 5 feet 3 inches, 218 pounds. She has tenderness with palpation in the thenar region. Positive Tinel's especially with wrist extension was noted to the median nerve distribution. She has diminished sensation to light touch in the median nerve distribution. No issues at the ulnar nerve. No significant weakness with pinch strength, no atrophy at the thenar eminence. IMPRESSION: Left carpal tunnel syndrome. PLAN: We talked about treatment options. Because [...] forward with a left carpal tunnel release. Cirilo Vance/MedQ #: [id number] documented in this encounter Plan of Treatment Not on file documented as of this encounter Visit Diagnoses Diagnosis Acute carpal tunnel syndrome, left- Primary documented in this encounter
--- OUTSIDE RECORDS SUMMARY | 2024-09-11 10:43 | XMS_ITS | Encounter Summary ---
Author Organization [facility] Healthcare Address [address] [place] [address] Care Team Providers Care Tin Whiz Machine Operator Name Role Phone Lacey Mcdowell MD Primary Care Provider [phone] Encounter Details Date Type Department Care Team (Late st Contact Info) Description 05/22/2020 Telephone [facility] [address] [place] [id number] [address] Lopez, RT Social History Tobacco Use Types Packs/Day Years Used Date Smoking Tobacco: Never Smokeless Tobacco: Never Alcohol Use Standard Drinks/Week Comments No 0 (1 standard drink = 0.6 oz pur e alcohol) Comments No Sex and Gender Information Value Date Recorded Sex Assigned at Not on file Legal Sex Female 11:21 AM RAILROAD TRACK REPAIR SUPERVISOR Gender Identity Not on file Sexual Orientation Not on file 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
--- OUTSIDE RECORDS SUMMARY | 2024-09-11 10:43 | XMS_ITS | Encounter Summary ---
Author Organization [facility] Address [address] [facility] [address] [place] [address] Care Team Providers Care Field Manager Name Role Phone Lacey Mcdowell MD Primary Care Provider [phone] Encounter Details Date Type Department Care Team (Late st Contact Info) Description 03/15/[address] [facility] Gastroenterology at [address] [place] [phone] Shaheen Powers MD [address] [place] [address] [address] [place] [address] Social History Tobacco Use Types Packs/Day Years Used Date Smoking Tobacco: Never Smokeless Tobacco: Never Alcohol Use Standard Drinks/Week Comments No 0 (1 standard drink = 0.6 oz pur e alcohol) Comments No Sex and Gender Information Value Date Recorded Sex Assigned at Not on file Legal Sex Female 11:21 AM COPY MACHINE OPERATOR Gender Identity Not on file Sexual Orientation Not on file 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 Kerns cancelled her 03-19-2022 colonoscopy d/t a in the family. She will call at a later date to reschedule. Sheet sent to [facility] documented in this encounter Plan of Treatment Not on file documented as of this encounter Visit Diagnoses Not on filedocumented in this encounter Care Teams Field Manager Relationship Specialty Start Date End Date Lacey Mcdowell MD PCP - General 12/08/12 documented as of this encounter
--- OUTSIDE RECORDS SUMMARY | 2024-09-11 10:43 | XMS_ITS | Encounter Summary ---
Author Organization [facility] Address [address] [place] [address] Care Team Providers Care Advertising Internship Name Role Phone Lacey Mcdowell MD Primary Care Provider [phone] Reason for Visit * Reason Comments Gynecologic Exam Encounter Details Date Type Department Care Team (Late st Contact Info) Description 04/28/2019 9:00 AM CDT Office Visit [facility] [address] [place] [phone] Tomasa Velazquez, MOVIE PRODUCER [address] [address] Routine gynecological examination (Primary Dx); Menorrhagia with regular cycle; Pelvic and perineal pain; Stress incontinence, female; Screening for malignant neoplasm of breast Social History Tobacco Use Types Packs/Day Years Used Date Smoking Tobacco: Never Smokeless Tobacco: Never Tobacco Cessation:Counseling Given: Yes Alcohol Use Standard Drinks/Week Comments No 0 (1 standard drink = 0.6 oz pur e alcohol) Comments No Sex and Gender Information Value Date Recorded Sex Assigned at Not on file Legal Sex Female 11:21 AM GANG DRILL OPERATOR Gender Identity Not on file Sexual Orientation Not on file 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 Well Woman Exam Subjective: Marisela Kerns is a 49 y.o. 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 Last Pap 04/05/16 was NILM, HRHPV negative. Denies history of abnormal. Last mammogram 06/09/17 was normal. Menses are every month, bleeding heavily x 2 day (passing clots, changing protection every 3 hours), then spotting for a couple more days. Her has had a vasectomy. Complains of right pelvic pain. Pain seems to be worse with movement. Reports pain seems to worse around ovulation, but pain is always on right side and constant. Pain is usually present 3-4 days a month and is described as stabbing. States pain has been present for 10 years, since the delivery of last child, but that it has been getting worse. Had normal pelvic imaging in 2011 for similar complaints. Pain has not been present today but it was present yesterday. Reports some stress incontinence. Reports it has increased over the past couple years. She wears a liner daily. Menstrual History: Patient's last menstrual period was 04/05/2019 (exact date). Sexual History: OB History 4 Para 3 Term 3 0 AB 1 Living 3 SAB TAB Ectopic Multiple Live Births # Outcome Date GA Labor/2nd Weight Sex Delivery Anes PTL Lv A1 A5 1 Term 2 Term 3 Term 4 AB Past Medical History: Diagnosis Date ??? HX OTHER MEDICAL Current Outpatient Medications: ??? albuterol HFA (PROVENTIL HFA,VENTOLIN HFA) 90 [...] None Occupational History ??? 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 Financial resource strain: None ??? Food insecurity: Worry: None Inability: None ??? Transportation needs: Medical: None Non-medical: None Tobacco Use ??? Smoking status: Never Smoker ??? Smokeless tobacco: Never Used Substance and Sexual Activity ??? Alcohol use: No ??? Drug use: No ??? Sexual activity: Yes Partners: Male Lifestyle ??? Physical activity: Days per week: None Minutes per session: None ??? Stress: None Relationships ??? Social connections: Talks on phone: None Gets together: None Attends gnosticist service: None Active member of club or organization: None Attends meetings of clubs or organizations: None Relationship status: None ??? Intimate partner violence: Fear of current or ex partner: None Emotionally abused: None Physically abused: None Forced sexual activity: None Other Topics Concern ??? None Social History Narrative ??? None Review of Systems Constitutional: Negative for fatigue, fever and unexpected weight change. Respiratory: Negative for shortness of breath and wheezing. Cardiovascular: Negative for chest pain and palpitations. Gastrointestinal: Negative for abdominal pain, blood in stool, nausea and vomiting. Genitourinary: Positive for pelvic pain. Negative for dysuria, frequency, hematuria, urgency, vaginal bleeding and vaginal discharge. Skin: Negative for rash. Objective: BP 130/84 Ht 160 cm (5' 3 ) Wt 209 lb (94.8 kg) LMP 04/05/2019 (Exact Date) BMI 37.02 kg/m?? Physical Exam Constitutional: She is oriented to person, place, and time. She appears well- developed and well-nourished. Genitourinary: Rectum normal, vagina normal and uterus normal. Right labia: normal. Left Labia: normal. No vaginal discharge found. Right adnexa normal. Left adnexa normal. Cervix: Normal exam. Cardiovascular: Normal rate and regular rhythm. Pulmonary/Chest: Effort normal and breath sounds normal. Right breast exhibits no mass and no tenderness. Left breast exhibits no mass and no tenderness. Abdominal: Soft. There is no tenderness. Musculoskeletal: She exhibits no edema or tenderness. Neurological: She is alert and oriented to person, place, and time. Skin: Skin is warm and dry. Psychiatric: She has a normal mood and affect. Her behavior is normal. Assessment and Plan: Marisela Kerns is a 49 y.o. female who presents for a well woman exam. 1. Routine gynecological examination Screening guidelines reviewed. Pap due by 2020. Mammogram ordered. Will follow up annually or prn. 2. Menorrhagia with regular cycle Elects for observation at this time. Discussed hormonal contraceptives as an option, will consider for future. 3. Pelvic and perineal pain Pelvic imaging ordered. Will follow up prn. 4. Stress incontinence, female Discussed PT and referral to urology. Elects to observe. 5. Screening for malignant neoplasm of breast - SCREENING MAMMOGRAM BILATERAL W SARAI; Future Recommended screenings and preventive care discussed: Breast cancer: Self Breast Exams, Mammogram: Indicated Pap smear: Not Indicated Diet and exercise discussed. Contraception reviewed. Patient plans 's vasectomy. Tomasa Velazquez NP 04/28/2019 Cosigned by May Ortiz MD at 04/28/2019 4:34 PM CDT documented in this encounter Plan of Treatment Not on file documented as of this encounter Visit Diagnoses Diagnosis Routine gynecological examination- Primary Menorrhagia with regular cycle Pelvic and perineal pain Stress incontinence, female documented in this encounter Discontinued Medications Medication Sig Discontinue Reason Start Date End Da te escitalopram (LEXAPRO) 10 mg tablet take 1 tablet by oral route every day Duplicate order 01/17/2015 04/28/2019 simvastatin (ZOCOR) 10 mg tablet take 1 tablet by oral route every day in the evening 01/17/2015 04/28/2019 documented as of this encounter Historical Medications * This list may reflect changes made after this encounter. escitalopram (LEXAPRO) 5 mg tablet TK 1 T PO D 0 03/08/2019 simvastatin (ZOCOR) 20 mg tablet TK ONE T PO D 2 03/06/2019 06/25/2023 added in this encounter Care Teams Advertising Internship Relationship Specialty Start Date End Date Lacey Mcdowell MD PCP - General 12/08/12 documented as of this encounter
--- OUTSIDE RECORDS SUMMARY | 2024-09-11 10:43 | XMS_ITS | Encounter Summary ---
Author Organization [facility] Address [address] [place] [address] Care Team Providers Care Monument Letterer Name Role Phone Lacey Mcdowell MD Primary Care Provider [phone] Encounter Details Date Type Department Care Team (Late st Contact Info) Description 06/18/2022 10:40 AM CDT Lab [facility] [address] [place] [phone] Venereal disease contact Social History Tobacco Use Types Packs/Day Years Used Date Smoking Tobacco: Never Smokeless Tobacco: Never Alcohol Use Standard Drinks/Week Comments No 0 (1 standard drink = 0.6 oz pur e alcohol) Comments No Sex and Gender Information Value Date Recorded Sex Assigned at Not on file Legal Sex Female 11:21 AM WATER CONTROL STATION ENGINEER Gender Identity Not on file Sexual Orientation Not on file 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
--- OUTSIDE RECORDS SUMMARY | 2024-09-11 10:43 | XMS_ITS | Clinical Summary ---
Author Organization [facility] [address] Address [address] [place] [address] Phone Care Team Providers Care Associate Professor Of Chemistry Name Role Phone Lacey Mcdowell MD Primary Care Provider [phone] Allergies Active Allergy Reactions Criticality Noted Date [...] (02/22/2022): Added automatically from request for surgery [id number] Laryngopharyngeal reflux (LPR) 07/16/2021 Assessment & Plan [...] Date Resolved Date Abnormal mammogram 01/27/2012 3 Encounters Date Type Department Care Team Description 07/28/2024 1:00 PM LAW EXAMINER [facility] [address] [place] [address] May Ortiz MD Encounter for gynecological examination without abnormal finding (Primary Dx); Urinary incontinence, mixed 07/28/2024 Orders Only [facility] [address] [place] [address] May Ortiz MD Encounter for screening mammogram for malignant neoplasm of breast (Primary Dx) from Last 3 Months Surgical History Surgery Date Site/Laterality Comments OTHER SURGICAL HISTORY : x 3 -04, , Medical History Medical History Date Comments Hypertension Family History Medical History Relation Name Comments Hyperlipidemia Father Hyperlipidemi a; Hypertension Father Hypertension; Breast cancer Father's Sister Cancer, ruthann ast; Hypertension Mother Hypertension; Diabetes Other 2 Family history of Diabetes mellitus; Type 2 Relation Name Status Comments Father Father's Sister Mother Other 1 Alive Other 2 Social History Tobacco Use Types Packs/Day Years Used Date Smoking Tobacco: Never Smokeless Tobacco: Never Tobacco Cessation:Counseling Given: Not Answered Alcohol Use Standard Drinks/Week Comments No 0 (1 standard drink = 0.6 oz pur e alcohol) Comments No Sex and Gender Information Value Date Recorded Sex Assigned at Not on file Legal Sex Female 11:21 AM LAW EXAMINER Gender Identity Not on file Sexual Orientation Not on file 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 Obstetrics History Para Term AB IAB SAB Ectopic Multiple Livin g Live Births 4 3 3 0 1 3 Date Outcome GA Total Labor Labor/2nd/3rd Weight Sex Type Anes PTL Maite A1 A5 Name Clin Term Term Term AB Last Filed Vital Signs Vital Sign Reading Time Taken Comments Blood Pressure 132/80 07/28/2024 1:15 PM LAW EXAMINER Pulse 97 09/26/2021 9:28 AM LAW EXAMINER Temperature 36.5 ??C (97.7 ??F) 09/26/2021 9:28 AM CS T Respiratory Rate 16 09/26/2021 9:28 AM LAW EXAMINER Oxygen Saturation 97% 09/26/2021 9:28 AM LAW EXAMINER Inhaled Oxygen Concentration - - Weight 102.1 kg (225 lb) 07/28/2024 1:15 PM LAW EXAMINER Height 160 cm (5' 3 ) 07/28/2024 1:15 PM LAW EXAMINER Body Mass Index 39.86 07/28/2024 1:15 PM LAW EXAMINER Plan of Treatment Health Maintenance Due Date Last Done Comments Colon Cancer Screening-Colonoscopy 1970 Depression Screening 1970 Hepatitis C Screening 1970 DTaP/Tdap/Td Vaccine (1 - Tdap) 1981 Hepatitis B Screening 1988 Zoster Vaccine (1 of 2) 2020 Cervical Cancer Screening 05/25/20222020, 04/05/2016, 12/08/2012, Additional history exists Influenza Vaccine (#1) 2024 09/24/2018, 2016 Breast Cancer Screening-Mammogram 06/25/2024 06/25/2023, 06/18/2022, 05/23/2020, Additional history exists Regular Well Visit/Exam 18-64 07/28/2025 07/28/2024, 06/25/2023, 06/18/2022, Additional history exists Pneumococcal vaccine <65 Aged Out No longer eligible based on patient's age to complete this topic Procedures Procedure Name Priority Date/Time Associated Diagnosis [...] 16,18/45 (05/25/2021 4:00 PM CDT) CLINICAL INFORMATION: [facility] [employer] [facility] Comment:03/26/2016 NILM HPV NEG LMP [facility] Comment:[id number] Previous Pap [facility] Comment:INFORMATION NOT PROV IDED Prev. Bx [facility] [employer] [facility] Comment:INFORMATION NOT PROV IDED SOURCE: [facility] Comment:Cervix, Endocervix Pap, specimen adequacy [facility] Comment: Satisfactory for evaluation. Endocervical/transformation zone component present. HPV interp [facility] Comment:Negative for intraep ithelial lesion or malignancy. COMMENTS [facility] Comment: This Pap test has been evaluated with computer assisted technology. Saw Cleaner Que [facility] Comment: YOUSSEF, CT(ASCP) CT Screening location: [facility] [place] [address] Comment [facility] Comment: EXPLANATORY NOTE: The Pap is [...] High Risk E6/E7 Not Detected Not Detected [facility] Comment: Methodology: Varnishing Unit Tool Setter-Mediated Amplification This assay detects E6/E7 viral messenger RNA (mRNA) from 14 high-risk HPV types (16,18,31,33,35,39,45,51,52,56,58,59,66,68). The analytical performance characteristics of this assay have been determined by [facility]. The modifications have not been cleared or approved by the FDA. This assay has been validated pursuant to the CLIA regulations and is used for clinical purposes. For additional information, please refer to http://education.[employer]/faq/SQY144v9 (This link if provided for information/ educational purposes only.) 05/25/2021 4:00 PM CDT 05/26/2021 2:29 AM CDT Narrative [facility] - 05/30/2021 9:15 AM CDT FASTING: UNKNOWN us Tomasa Velazquez GENERAL PARTNER LAB CYTOLOGY ORDERABLES F inal Result [facility] [address] [place] [address] [facility] [address] [place] [address] from Last 3 Months or Most Recently Relevant to Health Maintenance [place] [address] [place] [place] [address] [place] [address] [place] [address] [facility] Care Teams Associate Professor Of Chemistry Relationship Specialty Start Date End Date Lacey Mcdowell MD PCP - General 3/19/13
--- OUTSIDE RECORDS SUMMARY | 2024-09-11 10:43 | XMS_ITS | Encounter Summary ---
Author Organization [facility] Address [address] [place] [address] Care Team Providers Care Awning Frame Maker Name Role Phone Lacey Mcdowell MD Primary Care Provider Encounter Details Date Type Department Care Team (Late st Contact Info) Description 02/22/2022 Orders Only [facility] Gastroenterology at [address] [place] [address] Shaheen Powers MD [address] [place] [address] [address] [place] [address] Encounter for screening colonoscopy (Primary Dx) Social History Tobacco Use Types Packs/Day Years Used Date Smoking Tobacco: Never Smokeless Tobacco: Never Alcohol Use Standard Drinks/Week Comments No 0 (1 standard drink = 0.6 oz pur e alcohol) Comments No Sex and Gender Information Value Date Recorded Sex Assigned at Not on file Legal Sex Female 11:21 AM FLOOR BROKER Gender Identity Not on file Sexual Orientation Not on file 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
--- OUTSIDE RECORDS SUMMARY | 2024-09-11 10:43 | XMS_ITS | Encounter Summary ---
Author Organization [facility] Address [address] [place] [address] Care Team Providers Care Scooper Name Role Phone Lacey Mcdowell MD Primary Care Provider Reason for Visit * Diagnostic Imaging (Routine) - Closed Specialty Diagnoses / Procedures Referred By Contac t Referred To Contact Diagnoses Pelvic pain in female Procedures US Pelvis Complete May Ortiz MD Phone: tel: fax: [facility] Referral ID Status Reason Start Date Expiration Date Visits Re quested Visits Authorized [id number] Closed 04/28/2019 11/06/2020 1 1 Encounter Details Date Type Department Care Team (Latest Contact Info) Description 04/28/2019 10:10 AM CDT Ancillary Procedure [facility] [address] [place] [id number] Pelvic pain in female Social History Tobacco Use Types Packs/Day Years Used Date Smoking Tobacco: Never Smokeless Tobacco: Never Alcohol Use Standard Drinks/Week Comments No 0 (1 standard drink = 0.6 oz pur e alcohol) Comments No Sex and Gender Information Value Date Recorded Sex Assigned at Not on file Legal Sex Female 11:21 AM MAMMAL CONTROL AGENT Gender Identity Not on file Sexual Orientation Not on file 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 documented as of this encounter Plan of Treatment Not on file documented as of this encounter Procedures Procedure Name Priority Date/Time Associated Diagnosis Comments US PELVIS COMPLETE Schedule Routine, Read Routine (OP Routine) 04/28/2019 10:38 AM CDT Pelvic pain in female US TRANSVAGINAL Schedule Routine, Read Routine (OP Routine) 04/28/2019 10:38 AM CDT Pelvic pain in female documented in this encounter Results * US Transvaginal (04/28/2019 10:38 AM CDT) Anatomical Region Laterality Modality Pelvis N/A Ultrasound Narrative 04/28/2019 2:54 PM CDT Transvaginal pelvic ultrasound was performed. ??Endometrial stripe measures 10.6 mm. ??No free fluid is seen. ??There appears to be hypoechoic structure of the anterior left uterus measuring 0.8 x 0.5 x 0.7 cm. ??This probably represents a small fibroid. ??There are small nonspecific hyperechoic foci of the lower uterine segment. ??These are most consistent with small calcifications. ??Calcifying fibroids or calcified blood clots may be considered. Right and left ovaries measure 1.9 x 1.6 x 2.0 cm and 3.0 x 2.0 x 3.9 cm in size respectively. ??There is positive bilateral ovarian blood flow. ?? There are few small cystic structures of the left ovary. ??Largest measures 0.9 x 0.9 x 1.2 cm and 1.2 x 1.2 x 1.2 cm in size respectively. Impression: 1. Small uterine fibroid noted. 2. Small nonspecific calcifications of the lower uterine segment. 3. Probable dominant follicles of the left ovary. ??Largest measures 1.2 x 1.2 cm in size. ??Early cystic ovarian neoplasm cannot be excluded. ??Six week follow-up pelvic ultrasound is suggested to document decreasing size and or resolution of these cystic structures. ??Uterine fibroid and nonspecific calcifications of the lower uterine segment may also be followed for stability with the requested follow-up ultrasound. us May Ortiz MD IMG US PROCEDURES Fin al Result * US Pelvis Complete (04/28/2019 10:38 AM CDT) Anatomical Region Laterality Modality Pelvis N/A Ultrasound Narrative 04/28/2019 2:49 PM CDT Transabdominal pelvic ultrasound was performed. ??Uterus measures 8.9 x 5.4 x 5.9 cm. ??Endometrial stripe measures 0.9 cm. ??There may be cystic structures of the left ovary. ??The right ovary is poorly seen. Impression: 1. There may be cystic structures of the left ovary. 2. Right ovary is poorly seen with transabdominal imaging. ??Additional transvaginal imaging is suggested. 3. Uterus is grossly normal. ?? us May Ortiz MD IMG US PROCEDURES Fin al Result documented in this encounter Visit Diagnoses Diagnosis Pelvic pain in female Unspecified symptom associated with female genital organs documented in this encounter Care Teams Scooper Relationship Specialty Start Date End Date Lacey Mcdowell MD PCP - General 12/08/12 documented as of this encounter
--- OUTSIDE RECORDS SUMMARY | 2024-09-11 10:43 | XMS_ITS | Encounter Summary ---
Author Organization [facility] Address [address] [place] [address] Phone Care Team Providers Care Permastone Installer Name Role Phone Lacey Mcdowell MD Primary Care Provider [phone] Reason for Visit * Reason Comments Breast Problem Encounter Details Date Type Department Care Team (Late st Contact Info) Description 11/10/2017 1:10 PM MOLDED GOODS EMBOSSING PRESS OPERATOR [facility] [address] [place] [address] May Ortiz MD [address] [place] [address] Breast abscess (Primary Dx); Subacute vulvitis Social History Tobacco Use Types Packs/Day Years Used Date Smoking Tobacco: Never Smokeless Tobacco: Never Alcohol Use Standard Drinks/Week Comments No 0 (1 standard drink = 0.6 oz pur e alcohol) Comments No Sex and Gender Information Value Date Recorded Sex Assigned at Not on file Legal Sex Female 11:21 AM MOLDED GOODS EMBOSSING PRESS OPERATOR Gender Identity Not on file Sexual Orientation Not on file 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 Subjective/Objective Patient ID: Marisela Kerns is a 47 y.o. female. Chief Complaint Breast Problem HPI presents c/o breast lesion. On 11/06 she noticed a pimple-like area near right nipple that today has increased in tenderness. Noticed a small dark spot in the center as well. Denies trauma to breast. No lumps or rashes. Mammogram normal 06/09/17. Family history of breast cancer in paternal aunt. She also notes around menses she develops vulvar irritation and occasional pimple-like areas in thegroin area. These resolve spontaneously. Irritation also resolves after menses. She does have heavier flow to start and uses tampons and pads together. Review of Systems Constitutional: Negative for fatigue, fever and unexpected weight change. Gastrointestinal: Negative for abdominal pain, blood in stool, nausea and vomiting. Genitourinary: Positive for frequency and vaginal discharge. Negative for dysuria, hematuria, urgency and vaginal bleeding. Skin: Negative for rash. Breast: Positive for tenderness. Negative for breast discharge. Vitals: 11/10/17 1327 BP: 110/88 Weight: 200 lb (90.7 kg) Physical Exam Constitutional: She is oriented to person, place, and time. She appears well- developed and well-nourished. Genitourinary: Right labia: normal. Left Labia: normal. No vaginal discharge found. Pulmonary/Chest: Right breast exhibits skin change. Right breast exhibits no inverted nipple, no mass and no nipple discharge. Neurological: She is alert and oriented to person, place, and time. Psychiatric: She has a normal mood and affect. Her behavior is normal. Assessment/Plan 1. Breast abscess Small, superficial. Advised conservative management with warm compresses and topical triple antibiotic cream. F/u if persists or worsens. 2. Subacute vulvitis Advised use of barrier creams with pad use during menstrual cycles. ED GOODS EMBOSSING PRESS OPERATOR documented in this encounter Plan of Treatment Not on file documented as of this encounter Visit Diagnoses Diagnosis Breast abscess- Primary Inflammatory disease of breast Subacute vulvitis documented in this encounter Care Teams Permastone Installer Relationship Specialty Start Date End Date Lacey Mcdowell MD PCP - General 12/08/12 documented as of this encounter
--- OUTSIDE RECORDS SUMMARY | 2024-09-11 10:43 | XMS_ITS | Encounter Summary ---
Author Organization [facility] Address [address] [place] [address] Care Team Providers Care Pan Washer Hand Name Role Phone Lacey Mcdowell MD Primary Care Provider [phone] Reason for Referral * Diagnostic Imaging (Routine) - Closed Specialty Diagnoses / Procedures Referred By Contac t Referred To Contact Diagnoses Encounter for screening mammogram for breast cancer Procedures Screening Mammogram Bilateral W May Chaudhari MD [address] [place] [address] Phone: tel: fax: [facility] Referral ID Status Reason Start Date Expiration Date Visits Re quested Visits Authorized [id number] Closed 06/18/2022 07/18/2023 1 1 Reason for Visit * Reason Comments Annual Exam Encounter Details Date Type Department Care Team (Late st Contact Info) Description 06/18/2022 9:00 AM CDT Office Visit [facility] [address] [place] [address] May Ortiz MD [address] [place] [address] Encounter for gynecological examination without abnormal finding (Primary Dx); Encounter for screening mammogram for breast cancer; Menorrhagia with regular cycle; Pelvic and perineal pain; Acute vulvitis; Possible exposure to STD Social History Tobacco Use Types Packs/Day Years Used Date Smoking Tobacco: Never Smokeless Tobacco: Never Tobacco Cessation:Counseling Given: Not Answered Alcohol Use Standard Drinks/Week Comments No 0 (1 standard drink = 0.6 oz pur e alcohol) Comments No Sex and Gender Information Value Date Recorded Sex Assigned at Not on file Legal Sex Female 11:21 AM PRECISION MACHINE OPERATOR Gender Identity Not on file Sexual Orientation Not on file 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 documented as of this encounter Last Filed Vital Signs Vital Sign Reading Time Taken Comments Blood Pressure 138/84 06/18/2022 9:24 AM CDT Pulse - - Temperature - - Respiratory Rate - - Oxygen Saturation - - Inhaled Oxygen Concentration - - Weight 99.8 kg (220 lb) 06/18/2022 9:24 AM CDT Height 160 cm (5' 3 ) 06/18/2022 9:24 AM CDT Body Mass Index 38.97 06/18/2022 9:24 AM CDT documented in this encounter Ordered Prescriptions Prescription Sig Dispense Quantity Refills Last Filled Start Date End Date clotrimazole-betam ethasone (LOTRISONE) lotionIndications: Acute vulvitis Apply topically 2 (two) times a day as needed (rash) 30 mL 2 06/18/2022 3 documented in this encounter Progress Notes * May Ortiz MD - 06/18/2022 9:00 AM CDT Well Woman Exam Subjective: Marisela Kerns is a 52 y.o. 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 Last Pap 05/25/21 was NILM, HPV negative. Denies h/o abnormal. Mammogram was normal 05/23/20. Menses are regular, q 28-32 days with bleeding x 5-6 days. She has two days that are heavy, changing super tampon and a pad q 2 hours. Denies dysmenorrhea but has noticed mid cycle stabbing right pelvic pain that resolves in a day. is s/p vasectomy. She also is c/o an itching rash at outer vaginal area. Worse over the summer with sweating. She notes a h/o random sores on vulva, which she thought were related to pad use with her cycles. On further thinking, she notes previous partner was unfaithful and had sores once when she did as well. She denies testing for herpes. No h/o cold sores. Menstrual History: Patient's last menstrual period was 06/01/2022. Sexual History: OB History 4 Para 3 [...] PO D, Disp: , Rfl: 0 ??? fluticasone propionate (FLONASE) 50 mcg/actuation nasal spray, INT TWO SPRAYS IEN D, Disp: , Rfl: ??? metoprolol XL (TOPROL-XL) 25 mg extended release tablet, Take 25 mg by mouth daily, Disp: , Rfl: ??? naproxen sodium (ALEVE) 220 mg capsule, 220 mg., Disp: , Rfl: 0 ??? azelastine (ASTELIN) 137 mcg (0.1 %) nasal spray, Administer 2 sprays into each nostril 2 (two)times a day Use in each nostril as directed, Disp: 120 mL, Rfl: 11 ??? famotidine (PEPCID) 40 mg tablet, Take 1 tablet (40 mg total) by mouth nightly, Disp: 90 tablet, Rfl: 3 ??? simvastatin (ZOCOR) 20 mg tablet, TK ONE T PO D (Patient not taking: Reported on 06/18/2022), Disp: , Rfl: 2 Allergies Allergen Reactions ??? Guaifenesin ??? Ibuprofen Family History Problem Relation Age of Onset ??? Hypertension Mother Hypertension; ??? Hypertension Father Hypertension; ??? Hyperlipidemia Father Hyperlipidemia; ??? Diabetes Other Family history of Diabetes mellitus; Type 2 ??? Breast cancer Father's Sister Cancer, breast; Social History Tobacco Use ??? Smoking status: Never ??? Smokeless tobacco: Never Substance and Sexual Activity ??? Drug use: No ??? Sexual activity: [...] urgency, vaginal bleeding and vaginal discharge. Skin: Positive for rash. Objective: BP 138/84 Ht 160 cm (5' 3 ) Wt 220 lb (99.8 kg) LMP 06/01/2022 BMI 38.97 kg/m?? Physical Exam Constitutional: Appearance: [...] Assessment and Plan: Marisela Kerns is a 52 y.o. female who presents for a well woman exam. 1. Encounter for gynecological examination without abnormal finding Pap due for repeat by 2025. Mammogram ordered. Return for annual or PRN. 2. Encounter for screening mammogram for breast cancer - Screening Mammogram Bilateral W Brayan; Future 3. Menorrhagia with regular cycle Discussed general management options, medical and surgical, and risks/benefits including hormones and ablation. Also discussed average menopause age of early 50s. She elects for observation at this time. 4. Pelvic and perineal pain Unremarkable exam today. Discussed history is c/w ovulation pain, which can be treated with OCPs toprevent ovulation but recommend avoiding same given h/o HTN. 5. Acute vulvitis Recommend used of barrier creams as needed to avoid chafing. F/u if continues or worsens. - clotrimazole-betamethasone (LOTRISONE) lotion; Apply topically 2 (two) times a day as needed (rash) Dispense: 30 mL; Refill: 2 6. Possible exposure to STD Discussed possible genital herpes including mode of transmission, disease course. No lesions today for testing, but she elects for blood work. - HSV 1 and 2 Antibodies IgG IgM Blood; Future - HSV 1 and 2 Antibodies IgG IgM Blood Recommended screenings and preventive care discussed: Breast cancer: Self Breast Exams, Mammogram: Indicated Pap smear: Not Indicated Diet and exercise discussed. Contraception reviewed. May Ortiz MD 06/18/2022 documented in this encounter Plan of Treatment Scheduled Orders Name Type Priority Associated Diagnoses Orde r Schedule HSV 1 and 2 Antibodies IgG IgM Blood Microbiology Routine Possible exposure to STD Expected: 06/18/2022, Expires: 06/18/2023 documented as of this encounter Results * Screening Mammogram Bilateral W Brayan (06/18/2022 11:01 AM CDT) Anatomical Region Laterality [...] BI-RADS Category 1: Negative PATIENT LETTER SENT us May Ortiz MD IMG MAMMO PROCEDURES Final Result documented in this encounter Visit Diagnoses Diagnosis Encounter for gynecological examination without abnormal finding- Primary Encounter for screening mammogram for breast cancer Menorrhagia with regular cycle Pelvic and perineal pain Acute vulvitis Unspecified vaginitis and vulvovaginitis Possible exposure to STD Encounter for screening mammogram for breast cancer documented in this encounter Historical Medications * This list may reflect changes made after this encounter. metoprolol XL (TOPROL-XL) 25 mg extended release tablet Take 1 tablet (25 mg total) by mouth daily 05/16/2022 added in this encounter Care Teams Pan Washer Hand Relationship Specialty Start Date End Date Lacey Mcdowell MD PCP - General 12/08/12 documented as of this encounter
--- OUTSIDE RECORDS SUMMARY | 2024-09-11 10:43 | XMS_ITS | Encounter Summary ---
Author Organization [facility] Healthcare Address [address] [place] [address] Care Team Providers Care Cover Stripper Name Role Phone Lacey Mcdowell MD Primary Care Provider [phone] Reason for Visit * Reason Comments Annual Exam Encounter Details Date Type Department Care Team (Late st Contact Info) Description 07/28/2024 1:00 PM REEL SYSTEM OPERATOR Office Visit [facility] [address] [place] [address] May Ortiz MD [address] [place] [id number] Encounter for gynecological examination without abnormal finding (Primary Dx); Urinary incontinence, mixed Social History Tobacco Use Types Packs/Day Years Used Date Smoking Tobacco: Never Smokeless Tobacco: Never Alcohol Use Standard Drinks/Week Comments No 0 (1 standard drink = 0.6 oz pur e alcohol) Comments No Sex and Gender Information Value Date Recorded Sex Assigned at Not on file Legal Sex Female 11:21 AM REEL SYSTEM OPERATOR Gender Identity Not on file Sexual Orientation Not on file 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 documented as of this encounter Last Filed Vital Signs Vital Sign Reading Time Taken Comments Blood Pressure 132/80 07/28/2024 1:15 PM REEL SYSTEM OPERATOR Pulse - - Temperature - - Respiratory Rate - - Oxygen Saturation - - Inhaled Oxygen Concentration - - Weight 102.1 kg (225 lb) 07/28/2024 1:15 PM REEL SYSTEM OPERATOR Height 160 cm (5' 3 ) 07/28/2024 1:15 PM REEL SYSTEM OPERATOR Body Mass Index 39.86 07/28/2024 1:15 PM REEL SYSTEM OPERATOR documented in this encounter Progress Notes * May Ortiz MD - 07/28/2024 1:00 PM CST Well Woman Exam Subjective: Marisela Kerns is a 54 y.o. 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 Last Pap 05/25/21 was NILM, HPV negative. Denies h/o abnormal. Mammogram was normal 06/25/23 and is scheduled for later today. Menses continue irregular the last coupe years, now about q 4 months. LMP 05/05/24. is s/p vasectomy. She is c/o more bothersome urinary incontinence. Has urgency and difficulty making it to the restroom in time. Also has stress incontinence with sneezing or worse with recent cough and pneumonia. Wears liners regularly. Drinks only water. No other vaginal or urinary complaints. Menstrual History: Patient's last menstrual period was 05/05/2024. Sexual History: OB History 4 Para 3 Term 3 0 AB 1 Living 3 SAB IAB Ectopic Multiple Live Births # Outcome Date GA Labor/2nd Weight Sex Type Anes PTL Lv A1 A5 1 Term 2 Term 3 Term 4 AB Past Medical History: Diagnosis Date Hypertension Current Outpatient Medications: albuterol HFA (PROVENTIL HFA,VENTOLIN HFA) 90 mcg/actuation inhaler, inhale 2 puff by inhalation route every 4 - 6 hours as needed, Disp: 0 Inhaler, Rfl: 0 cetirizine (ZyrTEC) 10 mg tablet, 10 mg., Disp: , Rfl: 0 cholecalciferol 400 unit capsule, Take 1 tablet/capsule (400 Units total) by mouth daily, Disp: , Rfl: clotrimazole-betamethasone (LOTRISONE) lotion, Apply topically 2 (two) times a day as needed (rash), Disp: 30 mL, Rfl: 3 ferrous sulfate 325 mg (65 mg of elemental iron) tablet, Take 1 tablet (325 mg total) by mouth daily with breakfast, Disp: , Rfl: lisinopriL (PRINIVIL,ZESTRIL) 5 mg tablet, Take 1 tablet (5 mg total) by mouth daily, Disp: , Rfl: metoprolol XL (TOPROL-XL) 25 [...] as directed, Disp: 120 mL, Rfl: 11 escitalopram (LEXAPRO) 5 mg tablet, TK 1 T PO D (Patient not taking: Reported on 07/28/2024), Disp: , Rfl: 0 fluticasone propionate (FLONASE) 50 mcg/actuation nasal spray, INT TWO SPRAYS IEN D, Disp: , Rfl: Livalo 1 mg tablet, Take 1 tablet (1 mg total) by mouth 2 (two) times a week (Patient not taking: Reported on 07/28/2024), Disp: , Rfl: Allergies Allergen Reactions Guaifenesin Ibuprofen Family History [...] stool, nausea and vomiting. Genitourinary: Positive for urgency. Negative for dysuria, frequency, hematuria, vaginal bleeding and vaginal discharge. Skin: Negative for rash. Objective: BP 132/80 Ht 160 cm (5' 3 ) Wt 225 lb (102.1 kg) LMP 05/05/2024 BMI 39.86 kg/m?? Physical Exam Constitutional: Appearance: She is well-developed. Cardiovascular: Rate and Rhythm: Normal rate and regular rhythm. Pulmonary: Effort: Pulmonary effort is normal. Breath sounds: Normal breath sounds. Chest: Breasts: Right: No mass. Left: No mass. Abdominal: Palpations: Abdomen is soft. Tenderness: There is no abdominal tenderness. Genitourinary: Vagina normal and uterus normal. Right labia: normal. Left Labia: normal. No vaginal discharge. Right adnexa: normal. Left adnexa: normal. Cervix: polyp (3 mm at os). Cervix: Normal exam. Musculoskeletal: General: No tenderness. Skin: General: Skin is warm and dry. Neurological: Mental Status: She is alert and oriented to person, place, and time. Psychiatric: Behavior: Behavior normal. Assessment and Plan: Marisela Kerns is a 54 y.o. female who presents for a well woman exam. 1. Encounter for gynecological examination without abnormal finding (Primary) Pap is due for repeat by 2026. Keep mammogram as scheduled. Continue to track cycles. Reviewed menopause is after a year of amenorrhea. Return for annual or PRN. 2. Urinary incontinence, mixed Discussed management options including Kegel exercises/pelvic floor physical therapy, or surgery for stress symptoms. Also discussed lifestyle modification or medication for urge symptoms. She plans to try exercises at home and will call if interested in further intervention. Recommended screenings and preventive care discussed: Breast cancer: Self Breast Exams, Mammogram: Indicated Pap smear: Not Indicated Diet and exercise discussed. May Ortiz MD 07/28/2024 SYSTEM OPERATOR documented in this encounter Plan of Treatment Not on file documented as of this encounter Visit Diagnoses Diagnosis Encounter for gynecological examination without abnormal finding- Primary Urinary incontinence, mixed Mixed incontinence urge and stress (male)(female) documented in this encounter Historical Medications * This list may reflect changes made after this encounter. ferrous sulfate 325 mg (65 mg of elemental iron) tablet Take 1 tablet (325 mg total) by mouth daily with breakfast 05/03/2024 cholecalciferol 400 unit capsule Take 1 tablet/capsule (400 Units total) by mouth daily added in this encounter Care Teams Cover Stripper Relationship Specialty Start Date End Date Lacey Mcdowell MD [phone] (work) PCP - General 12/08/12 documented as of this encounter
--- OUTSIDE RECORDS SUMMARY | 2024-09-11 10:43 | XMS_ITS | Encounter Summary ---
Author Organization [facility] Address [address] [place] [address] Care Team Providers Care Master Of Ceremonies Name Role Phone Lacey Mcdowell MD Primary Care Provider [phone] Reason for Visit * Reason Comments Sinusitis Encounter Details Date Type Department Care Team (Latest Contact Info) Description 07/16/2021 4:00 PM CDT Office Visit [facility] [address] [place] [address] Ruby Zuniga, [address] [place] [address] Laryngopharyngeal reflux (LPR) (Primary Dx); Vasomotor rhinitis Social History Tobacco Use Types Packs/Day Years Used Date Smoking Tobacco: Never Smokeless Tobacco: Never Alcohol Use Standard Drinks/Week Comments No 0 (1 standard drink = 0.6 oz pur e alcohol) Comments No Sex and Gender Information Value Date Recorded Sex Assigned at Not on file Legal Sex Female 11:21 AM 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 documented as of this encounter Last Filed Vital Signs Vital Sign Reading Time Taken Comments Blood Pressure 170/102 07/16/2021 4:06 PM CDT Pulse 91 07/16/2021 4:06 PM CDT Temperature 36.1 ??C (96.9 ??F) 07/16/2021 4:06 PM CD T Respiratory Rate - - Oxygen Saturation - - Inhaled Oxygen Concentration - - Weight 101.2 kg (223 lb) 07/16/2021 4:06 PM CDT Height 160.7 cm (5' 3.25 ) 07/16/2021 4:06 PM CD T Body Mass Index 39.19 07/16/2021 4:06 PM CDT documented in this encounter Patient Instructions * Patient Instructions* Ruby Zuniga, DO - 07/16/2021 4:00 PM CDT Pepcid 40 mg at bedtime for at least 8 weeks Call if no improvement in 8 weeks for start Astelin (azelastine) 2 sprays into each nostril while looking down over the sink, do not sniff in or blow nose after use for at least 30 minutes twice daily What is acid reflux? -- Acid reflux is when the acid that is normally in your stomach backs up intothe esophagus, the tube that carries food from your mouth to your stomach. Another term for acid reflux is laryngopharyngeal reflux (LPR) or gastroesophageal reflux (GERD). What are the symptoms of acid reflux? -- The symptoms include: ??? Burning in the chest, known as heartburn ??? Burning in the throat or an acid taste in the throat ??? Stomach or chest pain ??? Trouble swallowing ??? Having a raspy voice or a sore throat ??? Unexplained cough ??? Frequent throat clearing ??? Feeling that there is something caught in your throat Is there anything I can do on my own to improve my symptoms? -- Yes. You might feel better if you: ?Lose weight (if you are overweight) ?Raise the head of your bed by 4-6 inches (for example, by putting blocks of wood under the head ofthe of the bed) ?Avoid foods that make your symptoms worse (examples include coffee, chocolate, alcohol, peppermint, tomatoes, onions and fatty or spicy foods) ?Cut down on the amount of alcohol you drink ?Stop smoking, if you smoke ?Eat a bunch of small meals each day, rather than 2 or 3 big meals ?Avoid lying down for 4 hours after a meal What treatments can help with my acid reflux? -- There are a few main types of medicines that can help with the symptoms of acid reflux: antacids, surface acting agents, histamine blockers, and proton pump inhibitors. All of these medicines work by reducing or blocking stomach acid. But they each do that in a different way. Antacids and surface acting agents can relieve mild symptoms, but they work only for a short time. Histamine blockers are stronger and last longer than antacids and surface acting agents. You can buy antacids and most histamine blockers without a prescription. Proton pump inhibitors are the most effective medicines in treating LPR. Some of these medicines are sold without a prescription. But there are other versions that your doctor can prescribe. Sometimes acid refluxmedicines are less expensive if you get them with a prescription. Other times nonprescription medicines are less expensive. If cost is a concern for you, ask your pharmacist how you might reduce the cost of your medicines. Information provided courtesy of: [employer]?? www.[employer]??2015 UpToDate?? documented in this encounter Ordered Prescriptions Prescription Sig Dispense Quantity Refills Last Filled Start Date End Date famotidine (PEPCID) 40 mg tabletIndications: Laryngopharyngeal reflux (LPR) Take 1 tablet (40 mg total) by mouth nightly 90 tablet 3 07/16/2021 3 documented in this encounter Progress Notes * Ruby Zuniga DO - 07/16/2021 4:00 PM CDT Images from the original note were not included. ENT Consult Reason for Consult: Sinus congestion Requesting Provider: Lacey Mcdowell MD SUBJECTIVE: Patient is a 51 y.o. female with chief complaint of sinus congestion. HPI: Marisela reported location of complaint was nose. This compliant quality was reported as constant and has a severity of moderate. The duration of this complaint was the last 40 years. Onset of this problems was 40 years and was associated with being seen by Dr. Terrazas skin testing was Negative, SCIt as a teenager with many positives, tried Flonase for 8 weeks twice daily, Sudafedwith some improvement. Afraid of nasal saline and sinus rinses. Same all year round. 04/2019: Sleep study per Dr. Rubio: The patient had 7 hours and 48 minutes of monitored time. 7 hours and 42 minutes of flow evaluationwas present. 7 hours and 37 minutes of oxygen saturation analysis was present. ?? The apnea-hypopnea index was 2.2. The AHI was 2.4 in supine position, and 0 in the nonsupine position. 5 apneas and 12 hypopneas were recorded. Baseline oxygen saturation 98%. Lowest oxygen saturation 92%. Average oxygen saturation 97%. The oxygen desaturation index was 2.0. The 15 oxygen desaturation episodes recorded. ?? Pulse evaluation revealed maximum 102 beats per minute, minimum 60 beats per minute and average of 70 beats per minute. FH: Multiple family members with Allergies 05/23/2020 CT Sinus: bilateral amanda bullosa, right > left COMPARISON: 11/30/2013 ?? TECHNIQUE: Noncontrast CT images through the paranasal sinuses. Reconstructed MPR images reviewed. All images stored on PACS. Automated exposure control was used as a dose optimization technique for this examination. ?? FINDINGS: ?? The frontal sinuses are normal. The ethmoid sinuses are normal. ] Right maxillary sinus mucous retention cyst is present. There is minimal left mucosal thickening. The sphenoid sinuses are normal. ?? The ostiomeatal units are open bilaterally. The nasal septum is at midline. No areas of bony erosion are identified. Amanda bullosa are noted. The orbits are normal. Limited view of the ventricles and basilar cisterns are normal. ?? IMPRESSION: ?? 1. Minimal bilateral maxillary mucosal thickening. ?? Electronically signed by: Jassi Woodard M.D. Past Medical History: Diagnosis Date ??? HX OTHER MEDICAL Patient Active Problem List Diagnosis ??? Fibrocystic breast changes ??? Anxiety ??? Hypercholesterolemia ??? Obesity with body mass index 30 or greater ??? Abnormal mammogram ??? Laryngopharyngeal reflux (LPR) ??? Vasomotor rhinitis Past Surgical History: Procedure Laterality Date ??? OTHER SURGICAL HISTORY : x 3 -'04, , Social History Tobacco Use ??? Smoking status: Never Smoker ??? Smokeless tobacco: Never Used Substance Use Topics ??? Alcohol use: No ??? Drug use: No Family History Problem Relation Age of Onset ??? Hypertension Mother Hypertension; ??? Hypertension Father Hypertension; ??? Hyperlipidemia Father Hyperlipidemia; ??? Diabetes Other Family history of Diabetes mellitus; Type 2 ??? Breast cancer Father's Sister Cancer, breast; Current Outpatient Medications on File Prior to Visit Medication Sig Dispense Refill ??? albuterol HFA (PROVENTIL HFA,VENTOLIN HFA) 90 mcg/actuation inhaler inhale 2 puff by inhalationroute every 4 - 6 hours as needed 0 Inhaler 0 ??? cetirizine (ZyrTEC) 10 mg tablet 10 mg. 0 ??? escitalopram (LEXAPRO) 5 mg tablet TK 1 T PO D 0 ??? fluticasone propionate (FLONASE) 50 mcg/actuation nasal spray INT TWO SPRAYS IEN D ??? naproxen sodium (ALEVE) 220 mg capsule 220 mg. 0 ??? simvastatin (ZOCOR) 20 mg tablet TK ONE T PO D 2 No current facility-administered medications on file prior to visit. Allergies Allergen Reactions ??? Guaifenesin ??? Ibuprofen OBJECTIVE: Vitals BP (!) 170/102 (BP Location: Left arm, Patient Position: Sitting) Pulse 91 Temp 36.1 ??C (96.9 ??F) (Temporal) Ht 160.7 cm (5' 3.25 ) Wt 101.2 kg (223 lb) BMI 39.19 kg/m?? Review of Systems Constitutional: Negative. Negative for chills, fatigue and fever. HENT: Positive for congestion, postnasal drip, rhinorrhea and sinus pain. Negative for ear discharge, ear pain, hearing loss, nosebleeds, sinus pressure, sore throat, tinnitus and voice change. Eyes: Negative. Negative for pain and discharge. Respiratory: Negative for apnea, cough, choking, shortness of breath, wheezing and stridor. Cardiovascular: Negative for chest pain, palpitations and leg swelling. Gastrointestinal: Negative for abdominal pain, constipation, nausea and vomiting. Negative for Heartburn, trouble swallowing foods or liquids Endocrine: Negative. Negative for cold intolerance and heat intolerance. Musculoskeletal: Negative. Negative for arthralgias, joint swelling, myalgias, neck pain and neck stiffness. Skin: Negative. Negative for color change, rash and wound. Negative for new skin lesions Allergic/Immunologic: Negative. Negative for environmental allergies and food allergies. Neurological: Negative. Negative for dizziness, syncope, speech difficulty, light-headedness and headaches. Hematological: Negative. Negative for adenopathy. Does not bruise/bleed easily. Psychiatric/Behavioral: Negative for agitation, behavioral problems and dysphoric mood. The patientis not nervous/anxious. Physical Exam Constitutional: She is oriented to person, place, and time. She appears well- developed. She is cooperative. No distress. HENT: Head: Normocephalic and atraumatic. Right Ear: Hearing, tympanic membrane, external ear and ear canal normal. Left Ear: Hearing, tympanic membrane, external ear and ear canal normal. Nose: Mucosal edema present. No rhinorrhea, sinus tenderness or nasal deformity. Mouth/Throat: Uvula is midline and mucous membranes are normal. No oral lesions. Posterior oropharyngeal erythema present. Tonsils are 2+ on the right. Tonsils are 2+ on the left. Eyes: Pupils are equal, round, and reactive to light. Conjunctivae and lids are normal. Neck: Trachea normal. Cardiovascular: No edema, no JVD, normal distal perfusion Pulmonary/Chest: Effort normal. No respiratory distress. No cough, wheezing or stridor Abdominal: Normal appearance. Musculoskeletal: General: Normal range of motion. Left shoulder: Normal. Cervical back: Full passive range of motion without pain and neck supple. Lymphadenopathy: She has no cervical adenopathy. Neurological: She is alert and oriented to person, place, and time. No cranial nerve deficit. Coordination and gait normal. Skin: Skin is warm and dry. No rash noted. Nails show no clubbing. Psychiatric: Her speech is normal and behavior is normal. Examination of the pharynx with use of the laryngeal mirror was not able to be performed due to patient discomfort Neck: no palpable abnormality of submandibular or parotid gland Facial Nerve strength intact and symmetric Assessment & Plan: Diagnoses and all orders for this visit: Laryngopharyngeal reflux (LPR) (Primary) Assessment & Plan: Pepcid 40 mg at bedtime for at least 8 weeks LPR discussed and Handout provided Orders: - famotidine (PEPCID) 40 mg tablet; Take 1 tablet (40 mg total) by mouth nightly Vasomotor rhinitis Assessment & Plan: Call if no improvement in 8 weeks for start Vikas Zuniga DO documented in this encounter Miscellaneous Notes * Assessment & Plan Note - Ruby Zuniga DO - 07/16/2021 4:24 PM CDT Associated Problem(s): Vasomotor rhinitis Call if no improvement in 8 weeks for start Astelin * Assessment & Plan Note - Ruby Zuniga DO - 07/16/2021 4:23 PM CDT Associated Problem(s): Laryngopharyngeal reflux (LPR) Pepcid 40 mg at bedtime for at least 8 weeks LPR discussed and Handout provided documented in this encounter Plan of Treatment Not on file documented as of this encounter Visit Diagnoses Diagnosis Laryngopharyngeal reflux (LPR)- Primary Vasomotor rhinitis Allergic rhinitis, cause unspecified documented in this encounter Care Teams Master Of Ceremonies Relationship Specialty Start Date End Date Lacey Mcdowell MD PCP - General 12/08/12 documented as of this encounter
--- OUTSIDE RECORDS SUMMARY | 2024-09-11 10:43 | XMS_ITS | Encounter Summary ---
Author Organization [facility] Health Address [address] [place] [address] Care Team Providers Care Buggy Loader Name Role Phone Unavailable Primary Care Provider Unavailabl e Reason for Visit * Reason Onset Date Comments Question 07/31/2023 Encounter Details Date Type Department Care Team (Late st Contact Info) Description 07/31/2023 Telephone [facility] Health Orthopedics [address] [place] [phone] Jeremiah Silverio MD [address] [place] [phone] Question Social History Tobacco Use Types Packs/Day Years [...] encounter Miscellaneous Notes * Telephone Encounter - Gianna Hamilton - 07/31/2023 4:38 PM CST APPT CHANGED TO [facility] LOCATION ATION MANAGER documented in this encounter Plan of Treatment Not on file documented as of this encounter Visit Diagnoses Not on filedocumented in this encounter
--- OUTSIDE RECORDS SUMMARY | 2024-09-11 10:43 | XMS_ITS | Encounter Summary ---
Author Organization [facility] Address [address] [place] [address] Care Team Providers Care Paint Department Supervisor Name Role Phone Lacey Mcdowell MD Primary Care Provider [phone] Reason for Visit * Diagnostic Imaging (Routine) - Closed Specialty Diagnoses / Procedures Referred By Contac t Referred To Contact Diagnoses Screening for malignant neoplasm of breast Procedures Screening Mammogram Bilateral W Brayan Screening Mammogram 2D Bilateral Tomasa Velazquez NP Phone: tel: fax: [address] [address] Referral ID Status Reason Start Date Expiration Date Visits Re quested Visits Authorized [id number] Closed 05/18/2020 06/17/2021 1 1 Encounter Details Date Type Department Care Team (Late st Contact Info) Description 05/23/2020 7:12 AM CDT - 05/23/2020 11:59 PM CDT Hospital Encounter [facility] [address] [place] [address] May Ortiz MD [address] [place] [phone] Tomasa Velazquez NP [address] [place] [address] Screening for malignant neoplasm of breast Discharge Disposition: Discharge to home or self care Social History Tobacco Use Types Packs/Day Years Used Date Smoking Tobacco: Never Smokeless Tobacco: Never Alcohol Use Standard Drinks/Week Comments No 0 (1 standard drink = 0.6 oz pur e alcohol) Comments No Sex and Gender Information Value Date Recorded Sex Assigned at Not on file 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 0 12/04/2011 simvastatin (ZOCOR) 20 mg tablet TK ONE T PO D 2 03/06/2019 3 documented as of this encounter Discharge Disposition Disposition Code Departure Means Destination Discharge to home or self care documented in this encounter Plan of Treatment Not on file documented as of this encounter Procedures Procedure Name Priority Date/Time Associated Diagnosis Comments SCREENING MAMMOGRAM BILATERAL W BRAYAN Schedule Routine, Read Routine (OP Routine) 05/23/2020 7:46 AM CDT Screening for malignant neoplasm of breast documented in this encounter Results * Screening Mammogram Bilateral W Brayan (05/23/2020 7:46 AM CDT) Anatomical Region Laterality Modality Breast Bilateral Mammography 05/23/2020 1:05 PM CDT Impressions 05/23/2020 1:09 PM CDT There is no mammographic evidence of malignancy. A 1 year screening mammogram is recommended. BI-RADS: 1 - Negative. The patient will be entered into a reminder system with a target due date of 1 year for her next mammogram. Electronically signed by: Humberto Brennan M.D. Narrative 05/23/2020 1:09 PM CDT EXAMINATION: SCREENING MAMMOGRAM BILATERAL W BRAYAN ORDERING HEALTHCARE PROVIDER: TOMASA VELAZQUEZ HISTORY: Routine screening mammography. COMPARISON: ??06/09/2017, 04/05/2016, 01/17/2015, 12/09/2012. TECHNIQUE: CC and MLO views of the bilateral breasts were obtained with digital technique using breast tomosynthesis with C view. Computer aided detection was utilized. FINDINGS: DENSITY: There are scattered fibroglandular elements in the bilateral breasts. BREASTS: There are no suspicious masses, suspicious calcifications, or other suspicious findings in either breast. There has been no suspicious interval change. us Tomasa Velazquez MOBILE EQUIPMENT OPERATOR IMG MAMMO PROCEDURES Yanira l Result documented in this encounter Visit Diagnoses Diagnosis Screening for malignant neoplasm of breast Breast screening, unspecified documented in this encounter Care Teams Paint Department Supervisor Relationship Specialty Start Date End Date Lacey Mcdowell MD PCP - General 12/08/12 documented as of this encounter
--- OUTSIDE RECORDS SUMMARY | 2024-09-11 10:43 | XMS_ITS | Encounter Summary ---
Author Organization [facility] Address [address] [facility] [place] [address] Care Team Providers Care Dampener Name Role Phone Lacey Mcdowell MD Primary Care Provider [phone] Encounter Details Date Type Department Care Team (Late st Contact Info) Description 02/24/[address] [facility] [address] [facility] [place] [address] Jeremias Mcdonnell MD [address] [place] [address] Social History Tobacco Use Types Packs/Day Years Used Date Smoking Tobacco: Never Assessed Sex and Gender Information Value Date Recorded Sex Assigned at Not on file Gender Identity Not on file Sexual Orientation Not on file documented as of this encounter Plan of Treatment Not on file documented as of this encounter Procedures Procedure Name Priority Date/Time Associated Diagnosis Comments DERMATOPATHOLOGY Routine 02/23/2019 12:0 0 AM CDT documented in this encounter Results * DERMATOPATHOLOGY (02/23/2019 12:00 AM CDT) Case Report Dermatopathology Report ? Case: [id number] ? Authorizing Provider: ??Jeremias Mcdonnell MD ?Collected: ? 02/23/2019 12:00 AM ? Pathologist: ? Federico Traore MD ? Received: ?02/24/2019 11:37 AM ? Specimens: ?? A) - Skin, right lateral abdomen ? B) - Skin, LUQ abdomen ? 4:02 PM CDT DERMATOPATHOLOGY LABORATORY Final Diagnosis Specimen A. SKIN, right lateral abdomen: LENTIGINOUS MELANOCYTIC NEVUS, COMPOUND TYPE, IRRITATED (COMPOUND MELANOCYTIC NEVUS WITH ARCHITECTURAL DISORDER) (D22.5) Specimen B. SKIN, LUQ abdomen: ACROCHORDON (SOFT FIBROMA, SKIN TAG) (L91.8) 9 4:02 PM CDT DERMATOPATHOLOGY LABORATORY Clinical History A-B: R/O dys nevus. 4:02 PM CDT DERMATOPATHOLOGY LABORATORY Gross Description Specimen A: Received is one formalin filled container labeled with the patient's name and designated right lateral abdomen. The specimen consists of a shave biopsy measuring [id number]. Jar 0. Specimen B: Received is one formalin filled container labeled with the patient's name and designated LUQ abdomen. The specimen consists of a shave biopsy measuring [id number], bisected. Jar 0. 9 4:02 PM CDT DERMATOPATHOLOGY LABORATORY Microscopic Description Specimen A. SKIN, [...] and collagen are intermingled. 9 4:02 PM CDT DERMATOPATHOLOGY LABORATORY Disclaimer An external and internal positive and negative controls are appropriate for the histochemical, immunohistochemical and immunofluorescence stain(s) in this case (if any), except where stated explicitly. The performance characteristics of the stain(s) cited in this report were developed and its performance characteristic determined by the Dermatopathology Laboratory at [facility], directed by Dr. Erin Traore. These tests need not be, and therefore are not, approved by the [place] Food and Drug Administration. The tests are used for clinical purposes. Billing Codes Specimen Charges Stain Charges 93966 99242 1 1 9 4:02 PM CDT DERMATOPATHOLOGY LABORATORY Embedded Images 9 4:02 PM CDT DERMATOPATHOLOGY LABORATORY Pathology/Cytology TISSUE SPECIMEN FROM SKIN / Unknown 02/23/2019 02/24/2019 11:37 AM CDT Miscellaneous samples (specimen) TISSUE SPECIMEN FROM SKIN / Unknown 02/23/2019 02/24/2019 11:37 AM CDT Jeremias Mcdonnell MD LAB - PATHOLOGY/CYTO LOGY ORDERABLES DERMATOPATHOLOGY LABORATORY [facility] - Department of Dermatology [address] [place] [address], 5th Floor Lab [address] [phone] documented in this encounter Visit Diagnoses Not on filedocumented in this encounter Care Teams Dampener Relationship Specialty Start Date End Date Lacey Mcdowell MD [address] [place] [address] PCP - General Family Medicine 08/12/23 documented as of this encounter
--- OUTSIDE RECORDS SUMMARY | 2024-09-11 10:43 | XMS_ITS | Encounter Summary ---
Author Organization [facility] Healthcare Address [address] [place] [address] Care Team Providers Care Entry Level Project Coordinator Name Role Phone Lacey Mcdowell MD Primary Care Provider [phone] Reason for Referral * Diagnostic Imaging (Routine) - Authorized Specialty Diagnoses / Procedures Referred By Contac t Referred To Contact Diagnoses Encounter for screening mammogram for malignant neoplasm of breast Procedures Screening Mammogram Bilateral W May Chaudhari MD [address] [place] [address] Phone: tel: fax: [facility] [address] [place] [address] Referral ID Status Reason Start Date Expiration Date V isits Requested Visits Authorized [id number] Authorized 07/28/2024 08/27/2025 1 1 ERCIAL LOAN COORDINATOR Encounter Details Date Type Department Care Team (Late st Contact Info) Description 07/28/2024 Orders Only [facility] Medical Group [facility] [address] [place] [address] May Ortiz MD [address] [place] [address] Encounter for screening mammogram for malignant neoplasm of breast (Primary Dx) Social History Tobacco Use Types Packs/Day Years Used Date Smoking Tobacco: Never Smokeless Tobacco: Never Alcohol Use Standard Drinks/Week Comments No 0 (1 standard drink = 0.6 oz pur e alcohol) Comments No Sex and Gender Information Value Date Recorded Sex Assigned at Not on file Legal Sex Female 11:21 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 documented as of this encounter Plan of Treatment Scheduled Orders Name Type Priority Associated Diagnoses Orde r Schedule Screening Mammogram Bilateral W Brayan Imaging Schedule Routine, Read Routine (OP Routine) Encounter for screening mammogram for malignant neoplasm of breast Expected: 07/28/2025, Expires: 01/25/2026 documented as of this encounter Visit Diagnoses Diagnosis Encounter for screening mammogram for malignant neoplasm of breast- Primary documented in this encounter Care Teams Entry Level Project Coordinator Relationship Specialty Start Date End Date Lacey Mcdowell MD PCP - General 12/08/12 documented as of this encounter
--- OUTSIDE RECORDS SUMMARY | 2024-09-11 10:43 | XMS_ITS | Encounter Summary ---
Author Organization [facility] Healthcare Address [address] [place] [address] Care Team Providers Care Physician Surgeon Name Role Phone Lacey Mcdowell MD Primary Care Provider [phone] Encounter Details Date Type Department Care Team (Latest Contact Info) Description 06/18/2022 10:14 AM CDT - 06/18/2022 11:59 PM CDT Hospital Encounter [address] [address] Discharge Disposition: Discharge to home or self care Social History Tobacco Use Types Packs/Day Years Used Date Smoking Tobacco: Never Smokeless Tobacco: Never Alcohol Use Standard Drinks/Week Comments No 0 (1 standard drink = 0.6 oz pur e alcohol) Comments No Sex and Gender Information Value Date Recorded Sex Assigned at Not on file 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 0 12/04/2011 clotrimazole-bet amethasone (LOTRISONE) lotionIndication s:Acute vulvitis Apply topically 2 (two) times a day as needed (rash) 30 mL 2 06/18/2022 3 famotidine (PEPCID) 40 mg tabletIndication s:Laryngopharyng eal reflux (LPR) Take 1 tablet (40 mg total) by mouth nightly 90 tablet 3 07/16/2021 3 simvastatin (ZOCOR) 20 mg tablet TK ONE T PO D 2 03/06/2019 3 documented as of this encounter Discharge Disposition Disposition Code Departure Means Destination Discharge to home or self care documented in this encounter Plan of Treatment Not on file documented as of this encounter Procedures Procedure Name Priority Date/Time Associated Diagnosis Comments HSV 2 ANTIBODY, IGG Routine 06/18/2022 1 0:14 AM CDT HSV 1 ANTIBODY, IGG Routine 06/18/2022 1 0:14 AM CDT documented in this encounter Results * HSV 2 IgG Antibody Blood (06/18/2022 10:14 AM CDT) HSV 2 IgG Nonreactive Nonreactive FORREST MARTINEZ Comment: Interpretive Data 1. Negative: No detectable IgG antibody to HSV-2. 2. Equivocal: Presence or absence of detectable antibodies to HSV-2 cannot be determined and the test should be repeated. 3. 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 Current interpretive data was last revised on 2016. Testing performed by: [facility], [address] [facility], [place]., [address] Blood 06/18/2022 10:1 4 AM CDT 06/18/2022 5:06 PM CDT us May Ortiz MD LAB MICROBIOLOGY - GE NERAL ORDERABLES Final Result Performing Organization Address [facility] Co de Phone Number JOSEFINAEMIL [address] [address] Department [place] [address] * HSV 1 IgG Antibody Blood (06/18/2022 10:14 AM CDT) HSV 1 IgG Nonreactive Nonreactive FORREST MARTINEZ Comment: Interpretive Data 1. Nonreactive: No detectable IgG antibody to HSV-1. 2. Equivocal: Presence or absence of detectable antibodies to HSV-1 cannot be determined and the test should be repeated. 3. Reactive: Indicates presence of detectable IgG antibody to HSV-1. Current interpretive data was last revised on 2016. Testing performed by: [facility], [address] [place]., [address] Blood 06/18/2022 10:1 4 AM CDT 06/18/2022 5:06 PM CDT May Ortiz MD LAB MICROBIOLOGY - GE NERAL ORDERABLES Final Result Performing Organization Address [facility] Co de Phone Number FORREST MARTINEZ [address] [address] [place] [address] documented in this encounter Visit Diagnoses Not on filedocumented in this encounter Care Teams Physician Surgeon Relationship Specialty Start Date End Date Lacey Mcdowell MD PCP - General 12/08/12 documented as of this encounter
--- OUTSIDE RECORDS SUMMARY | 2024-09-11 10:43 | XMS_ITS | Encounter Summary ---
Author Organization [facility] Address [address] [facility] [address] [place] [address] Care Team Providers Care Shield Runner Name Role Phone Lacey Mcdowell MD Primary Care Provider [phone] Reason for Visit * Reason Comments Gynecologic Exam Encounter Details Date Type Department Care Team (Late st Contact Info) Description 05/18/2020 9:00 AM CDT Office Visit [facility] [address] [place] [phone] Tomasa Velazquez, PATIENT ADVOCATE [address] [address] Routine gynecological examination (Primary Dx); Screening for malignant neoplasm of breast; Perimenopause Social History Tobacco Use Types Packs/Day Years Used Date Smoking Tobacco: Never Smokeless Tobacco: Never Alcohol Use Standard Drinks/Week Comments No 0 (1 standard drink = 0.6 oz pur e alcohol) Comments No Sex and Gender Information Value Date Recorded Sex Assigned at Not on file 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 Well Woman Exam Subjective: Marisela Kerns is a 50 y.o. year old who presents for annual channel opener outsoles exam. Last Pap 04/05/16 was NILM, HR HPV negative. Denies h/o abnormal. Mammogram 05/30/17 was normal. is s/p vasectomy. Menses are monthly but have become irregular in pattern. She has been bleeding x 2 days, 2 days of nothing, then one more day of bleeding. Bleeding is heavy, changing protection every two hours. H/o stress incontinence, wears a pad daily. Comfortable to continue observation. Denies further channel opener outsoles concerns. Menstrual History: Patient's last menstrual period was 05/04/2020. Sexual History: OB History 4 Para 3 [...] SPRAYS IEN D, Disp: , Rfl: ??? naproxen sodium (ALEVE) [...] ??? Financial resource strain: None ??? Food insecurity Worry: None Inability: None ??? Transportation needs Medical: None Non-medical: None Tobacco Use ??? Smoking status: Never Smoker ??? Smokeless tobacco: Never Used Substance and Sexual Activity ??? Alcohol use: No ??? Drug use: No ??? Sexual activity: Yes Partners: Male control/protection: Vasectomy Lifestyle ??? Physical activity Days per week: None Minutes per session: None ??? Stress: None Relationships ??? Social connections Talks on phone: None Gets together: None Attends restorationism service: None Active member of club or organization: None Attends meetings of clubs or organizations: None Relationship status: None ??? Intimate partner violence Fear of current or ex partner: None [...] discharge. Skin: Negative for rash. Objective: BP 140/70 Temp 97.5 ??F Ht 160.7 cm (5' 3.25 ) Wt 209 lb (94.8 kg) LMP 05/04/2020 No BMI 36.73 kg/m?? Physical Exam Constitutional: Appearance: She is [...] normal. Left adnexa: normal. Cervix: Normal exam. Musculoskeletal: General: No tenderness. Skin: General: Skin is warm and dry. Neurological: Mental Status: She is alert and oriented to person, place, and time. Psychiatric: Behavior: Behavior normal. Assessment and Plan: Marisela Kerns is a 50 y.o. female who presents for a well woman exam. 1. Routine gynecological examination Screening guidelines reviewed. Pap due by 2020. Mammogram ordered. Will follow up annually or prn. 2. Screening for malignant neoplasm of breast - Screening Mammogram 2D Bilateral; Future 3. Perimenopause Discussed changes in bleeding pattern normal during this time. Advised f/u with cycles < 21 daysor prolonged heavy bleeding. Recommended screenings and preventive care discussed: Breast cancer: Self Breast Exams, Mammogram: Indicated Pap smear: Not Indicated Diet and exercise discussed. Contraception reviewed. Tomasa Velazquez NP 05/18/2020 Cosigned by May Ortiz MD at 05/25/2020 6:13 AM CDT documented in this encounter Plan of Treatment Not on file documented as of this encounter Visit Diagnoses Diagnosis Routine gynecological examination- Primary Perimenopause Symptomatic menopausal or female climacteric states documented in this encounter Historical Medications * This list may reflect changes made after this encounter. fluticasone propionate (FLONASE) 50 mcg/actuation nasal spray INT TWO SPRAYS IEN D 04/23/2020 added in this encounter Care Teams Shield Runner Relationship Specialty Start Date End Date Lacey Mcdowell MD PCP - General 12/08/12 documented as of this encounter
--- OUTSIDE RECORDS SUMMARY | 2024-09-11 10:43 | XMS_ITS | Encounter Summary ---
Author Organization [facility] Healthcare Address [address] [place] [address] Care Team Providers Care Lead Scientist Name Role Phone Lacey Mcdowell MD Primary Care Provider [phone] Reason for Referral * Diagnostic Imaging (Routine) - Closed Specialty Diagnoses / Procedures Referred By Olive briceño Referred To Contact Radiology Diagnoses Chronic sinusitis, unspecified Procedures CT Sinus WO Contrast Jacques Terrazas MD [address] [place] [address] Phone: tel: fax: [address] [phone] Referral ID Status Reason Start Date Expiration Date Visits Re quested Visits Authorized [id number] Closed 05/15/2020 11/11/2020 1 1 Reason for Visit * Diagnostic Imaging (Routine) - Closed Specialty Diagnoses / Procedures Referred By Olive briceño Referred To Contact Radiology Diagnoses Chronic sinusitis, unspecified Procedures CT Sinus WO Contrast Jacques Terrazas MD [address] [place] [address] Phone: tel: fax: [address] [phone] Referral ID Status Reason Start Date Expiration Date Visits Re quested Visits Authorized [id number] Closed 05/15/2020 11/11/2020 1 1 Encounter Details Date Type Department Care Team (Late st Contact Info) Description 05/23/2020 7:12 AM CDT - 05/23/2020 11:59 PM CDT Hospital Encounter [facility] [address] [place] [address] Jacques Terrazas MD [place] [address] Chronic sinusitis, unspecified Discharge Disposition: Discharge to home or self care Social History Tobacco Use Types Packs/Day Years Used Date Smoking Tobacco: Never Smokeless Tobacco: Never Alcohol Use Standard Drinks/Week Comments No 0 (1 standard drink = 0.6 oz pur e alcohol) Comments No Sex and Gender Information Value Date Recorded Sex Assigned at Not on file 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 Minimal bilateral maxillary mucosal thickening. Electronically signed by: Jassi Woodard M.D. [facility] 05/23/2020 7:40 AM CDT EXAMINATION: CT SINUS WO CONTRAST ORDERING HEALTHCARE PROVIDER: JACQUES TERRAZAS HISTORY: Sinus congestion for 18 months. Chronic sinusitis ?? COMPARISON: 11/30/2013 TECHNIQUE: Noncontrast CT images through the paranasal sinuses. Reconstructed MPR images reviewed. ??All images stored on PACS. Automated exposure control was used as a dose optimization technique for this examination. FINDINGS: The frontal sinuses are normal. The ethmoid sinuses are normal. ] Right maxillary sinus mucous retention cyst is present. There is minimal left mucosal thickening. The sphenoid sinuses are normal. The ostiomeatal units are open bilaterally. The nasal septum is at midline. No areas of bony erosion are identified. Donna bullosa are noted. The orbits are normal. Limited view of the ventricles and basilar cisterns are normal. Procedure Note Jassi Woodard MD - 05/23/2020 EXAMINATION: CT SINUS WO CONTRAST ORDERING HEALTHCARE PROVIDER: JACQUES TERRAZAS HISTORY: Sinus congestion for 18 months. Chronic sinusitis COMPARISON: 11/30/2013 TECHNIQUE: Noncontrast CT images through the paranasal sinuses. Reconstructed MPR images reviewed. All images stored on PACS. Automated exposure control was used as a dose optimization technique for this examination. FINDINGS: The frontal sinuses are normal. The ethmoid sinuses are normal. ] Right maxillary sinus mucous retention cyst is present. There is minimal left mucosal thickening. The sphenoid sinuses are normal. The ostiomeatal units are open bilaterally. The nasal septum is at midline. No areas of bony erosion are identified. Donna bullosa are noted. The orbits are normal. Limited view of the ventricles and basilar cisterns are normal. IMPRESSION: 1. Minimal bilateral maxillary mucosal thickening. Electronically signed by: Jassi Woodard M.D. Jacques Terrazas MD IMG CT PROCEDURES Final Resu lt documented in this encounter Visit Diagnoses Diagnosis Chronic sinusitis, unspecified documented in this encounter Care Teams Lead Scientist Relationship Specialty Start Date End Date Lacey Mcdowell MD PCP - General 12/08/12 documented as of this encounter
--- OUTSIDE RECORDS SUMMARY | 2024-09-11 10:43 | XMS_ITS | Encounter Summary ---
Author Organization [facility] Healthcare Address [address] [place] [address] Care Team Providers Care Recreation Technician Name Role Phone Lacey Mcdowell MD Primary Care Provider [phone] Reason for Visit * Diagnostic Imaging (Routine) - Closed Specialty Diagnoses / Procedures Referred By Contac t Referred To Contact Diagnoses Encounter for screening mammogram for malignant neoplasm of breast Procedures Screening Mammogram Bilateral W May Chaudhari MD [address] [place] [address] Phone: tel: fax: [facility] Referral ID Status Reason Start Date Expiration Date Visits Re quested Visits Authorized [id number] Closed 06/18/2022 07/18/2023 1 1 Encounter Details Date Type Department Care Team (Latest Contact Info) Description 06/25/2023 10:10 AM CDT Ancillary Procedure [facility] [address] [place] [address] Encounter for screening mammogram for malignant neoplasm of breast Social History Tobacco Use Types Packs/Day Years Used Date Smoking Tobacco: Never Smokeless Tobacco: Never Alcohol Use Standard Drinks/Week Comments No 0 (1 standard drink = 0.6 oz pur e alcohol) Comments No Sex and Gender Information Value Date Recorded Sex Assigned at Not on file 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
--- OUTSIDE RECORDS SUMMARY | 2024-09-11 10:43 | XMS_ITS | Encounter Summary ---
Author Organization [facility] Healthcare Address [address] [place] [address] Care Team Providers Care Cigarette Stamper Name Role Phone Lacey Mcdowell MD Primary Care Provider [phone] Encounter Details Date Type Department Care Team (Late st Contact Info) Description 06/25/2023 Orders Only [facility] [address] [place] [address] May Ortiz MD [address] [place] [address] Encounter for screening mammogram for malignant neoplasm of breast (Primary Dx) Social History Tobacco Use Types Packs/Day Years Used Date Smoking Tobacco: Never Smokeless Tobacco: Never Alcohol Use Standard Drinks/Week Comments No 0 (1 standard drink = 0.6 oz pur e alcohol) Comments No Sex and Gender Information Value Date Recorded Sex Assigned at Not on file 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
--- OUTSIDE RECORDS SUMMARY | 2024-09-11 10:43 | XMS_ITS | Encounter Summary ---
Author Organization [facility] Address [address] [place] [address] Care Team Providers Care Oil Rigger Name Role Phone Lacey Mcdowell MD Primary Care Provider [phone] Encounter Details Date Type Department Care Team (Late st Contact Info) Description 11/12/2021 Telephone [facility] - [facility] [address] [place] [address] Ruby Zuniga DO [address] [place] [address] Social History Tobacco Use Types Packs/Day Years Used Date Smoking Tobacco: Never Smokeless Tobacco: Never Alcohol Use Standard Drinks/Week Comments No 0 (1 standard drink = 0.6 oz pur e alcohol) Comments No Sex and Gender Information Value Date Recorded Sex Assigned at Not on file Legal Sex Female 11:21 AM 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 Please advise ORATE GENERAL MANAGER documented in this encounter Plan of Treatment Not on file documented as of this encounter Visit Diagnoses Not on filedocumented in this encounter Care Teams Oil Rigger Relationship Specialty Start Date End Date Lacey Mcdowell MD PCP - General 12/08/12 documented as of this encounter
--- OUTSIDE RECORDS SUMMARY | 2024-09-11 10:43 | XMS_ITS | Encounter Summary ---
Author Organization [facility] Address [address] [place] [address] Care Team Providers Care Heavy Equipment Diesel Mechanic Name Role Phone Lacey Mcdowell MD Primary Care Provider [phone] Encounter Details Date Type Department Care Team (Late st Contact Info) Description 04/29/2019 Telephone [facility] [address] [place] [address] Ruby Lynn LPN Social History Tobacco Use Types Packs/Day Years Used Date Smoking Tobacco: Never Smokeless Tobacco: Never Alcohol Use Standard Drinks/Week Comments No 0 (1 standard drink = 0.6 oz pur e alcohol) Comments No Sex and Gender Information Value Date Recorded Sex Assigned at Not on file Legal Sex Female 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 * Telephone Encounter - Ruby Lynn LPN - 04/29/2019 8:36 AM CDT ----- Message from Tomasa Velazquez NP sent at 04/29/2019 8:19 AM CDT ----- Please let her know that her pelvic imaging is showed only a very small fibroid and follicles on ovary. These are both essentially normal findings and no follow up necessary. Thanks. documented in this encounter Plan of Treatment Not on file documented as of this encounter Visit Diagnoses Not on filedocumented in this encounter Care Teams Heavy Equipment Diesel Mechanic Relationship Specialty Start Date End Date Lacey Mcdowell MD PCP - General 12/08/12 documented as of this encounter
--- OUTSIDE RECORDS SUMMARY | 2024-09-11 10:44 | XMS_ITS | Encounter Summary ---
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
--- OUTSIDE RECORDS SUMMARY | 2024-09-11 10:44 | XMS_ITS | Encounter Summary ---
Author Organization [facility] Facility Care Team Providers Care Risk Reduction Counselor Name Role Phone Unavailable Primary Care Provider Unavailabl e Encounter Details Date Type Department Care Team (Late st Contact Info) Description 04/24/2007 11:28 AM CDT - 04/24/2007 4:00 PM T Hospital [facility] Dino Barros MD [address] [place] [id number] Social History Tobacco Use Types Packs/Day Years Used Date Smoking Tobacco: Never Assessed Comments Unknown Sex and Gender Information Value Date Recorded Sex Assigned at Not on file 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
--- OUTSIDE RECORDS SUMMARY | 2024-09-11 10:44 | XMS_ITS | Encounter Summary ---
Author Organization [facility] Facility Care Team Providers Care Strain Technician Name Role Phone Unavailable Primary Care Provider Unavailabl e Encounter Details Date Type Department Care Team (Late st Contact Info) Description 05/25/2008 - 05/25/2008 11:59 PM CDT 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
--- OUTSIDE RECORDS SUMMARY | 2024-09-11 10:44 | XMS_ITS | Encounter Summary ---
Author Organization [facility] Address [address] [address] Phone Care Team Providers Care Certified Medical Asst Name Role Phone Lacey Mcdowell MD Primary Care Provider [phone] Reason for Visit * Reason Comments Annual Exam Encounter Details Date Type Department Care Team (Late st Contact Info) Description 06/09/2017 9:30 AM CDT Office Visit [facility] [address] [place] [place] [address] May Ortiz MD [address] [place] [address] Routine gynecological examination (Primary Dx); PRESTON (stress urinary incontinence, female); Encounter for screening mammogram for malignant neoplasm of breast Social History Tobacco Use Types Packs/Day Years Used Date Smoking Tobacco: Never Smokeless Tobacco: Never Alcohol Use Standard Drinks/Week Comments No 0 (1 standard drink = 0.6 oz pur e alcohol) Comments No Sex and Gender Information Value Date Recorded Sex Assigned at Not on file 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 Gender Identity Not on file Sexual Orientation Not on file Occupation Industry Job Start Date Job End Date N/A Not on file Not on file Not on file documented as of this encounter Last Filed Vital Signs Vital Sign Reading Time Taken Comments Blood Pressure 132/80 06/09/2017 9:41 AM CDT Pulse - - Temperature - - Respiratory Rate - - Oxygen Saturation - - Inhaled Oxygen Concentration - - Weight 91.2 kg (201 lb) 06/09/2017 9:41 AM CDT Height 158.8 cm (5' 2.5 ) 06/09/2017 9:41 AM CDT Body Mass Index 36.18 06/09/2017 9:41 AM CDT documented in this encounter Progress Notes * May Ortiz MD - 06/09/2017 9:30 AM CDT Well Woman Exam Subjective: Marisela Kerns is a 47 y.o. 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 Last Pap 04/05/16 was NILM, HR HPV (-). Denies history of abnormal. Mammogram normal 04/05/16. Menses are q monthly. She has a day or two of heavy bleeding but remains tolerable. is s/p vasectomy. She complains of daily stress urinary incontinence, worse the last few months but especially the last week. Wears only a liner daily. Menstrual History: Patient's last menstrual period was 05/26/2017 (approximate). Sexual History: OB History Para Term AB Living 4 3 3 0 1 3 SAB TAB Ectopic Multiple Live Births # Outcome Date GA Labor/2nd Weight Sex Delivery Anes PTL Living Name Location Delivering Clinician 1 Term 2 Term 3 Term 4 Past Medical History: Diagnosis Date ??? HX OTHER MEDICAL Current Outpatient Prescriptions: ??? albuterol HFA (PROVENTIL HFA,VENTOLIN HFA) 90 mcg/actuation inhaler, inhale 2 puff by inhalation route every 4 - 6 hours as needed, Disp: 0 Inhaler, Rfl: 0 ??? cetirizine (ZyrTEC) 10 mg tablet, 10 mg., Disp: , Rfl: 0 ??? escitalopram (LEXAPRO) 10 mg tablet, take 1 tablet by oral route every day, Disp: 0, Rfl: 0 ??? naproxen sodium (ALEVE) 220 mg capsule, 220 mg., Disp: , Rfl: 0 ??? simvastatin (ZOCOR) 10 mg tablet, take 1 tablet by oral route every day in the evening, Disp: 0, Rfl: 0 Allergies Allergen Reactions ??? Guaifenesin ??? Ibuprofen Family History Problem Relation Age of Onset ??? Hypertension Mother Hypertension; ??? Hypertension Father Hypertension; ??? Hyperlipidemia Father Hyperlipidemia; ??? Diabetes Other Family history of Diabetes mellitus; Type 2 ??? Breast cancer Father's Sister Cancer, breast; Social History Social History ??? Marital status: Spouse name: N/A ??? Number of children: 3 ??? Years of education: N/A Occupational History ??? N/A Social History Main Topics ??? Smoking status: Never Smoker ??? Smokeless tobacco: Never Used ??? Alcohol use No ??? Drug use: No ??? Sexual activity: Yes Partners: Male Other Topics Concern ??? None Social History Narrative ??? None Review of Systems Constitutional: Negative for fatigue, fever and unexpected weight change. Respiratory: Negative for shortness of breath and wheezing. Cardiovascular: Negative for chest pain and palpitations. Gastrointestinal: Negative for abdominal pain, blood in stool, nausea and vomiting. Genitourinary: Positive for frequency and urgency. Negative for dysuria, hematuria, vaginal bleeding and vaginal discharge. Skin: Negative for rash. Objective: BP 132/80 Ht 158.8 cm (5' 2.5 ) Wt 201 lb (91.2 kg) LMP 05/26/2017 (Approximate) ? No BMI 36.18 kg/m?? Physical Exam Constitutional: She is oriented to person, place, and time. She appears well- developed and well-nourished. Genitourinary: Vagina normal and uterus normal. Right labia: normal. Left Labia: normal. No vaginal discharge found. Right adnexa normal. Left adnexa normal. Cervix: Normal exam. Uterus is anteverted. Cardiovascular: Normal rate and regular rhythm. Pulmonary/Chest: Effort normal and breath sounds normal. Right breast exhibits no mass. Left breastexhibits no mass. Abdominal: Soft. There is no tenderness. Musculoskeletal: She exhibits no edema or tenderness. Neurological: She is alert and oriented to person, place, and time. Skin: Skin is warm and dry. Psychiatric: She has a normal mood and affect. Her behavior is normal. Assessment and Plan: Marisela Kerns is a 47 y.o. female who presents for a well woman exam. 1. Routine gynecological examination Pap due for repeat by 2020. Mammogram ordered. Return for annual or PRN. 2. PRESTON (stress urinary incontinence, female) Discussed management options - kegel exercises, pelvic floor PT, surgery. Kegel exercise handout provided. F/u if persists or worsens. - Urinalysis reflex to microscopic and culture; Future - Urinalysis reflex to microscopic and culture 3. Encounter for screening mammogram for malignant neoplasm of breast - Screening Mammogram 2D Bilateral; Future Recommended screenings and preventive care discussed: Breast cancer: Self Breast Exams, Mammogram: Indicated Pap smear: Not Indicated Diet and exercise discussed. Contraception reviewed. May Ortiz MD 06/09/2017 documented in this encounter Plan of Treatment Not on file documented as of this encounter Procedures Procedure Name Priority Date/Time Associated Diagnosis Comments REFLEXIVE URINE CULTURE Routine 06/12/2017 9:44 AM CDT URINALYSIS AND REFLEX TO MICROSCOPIC AND CULTURE Routine 06/12/2017 9:44 AM CDT PRESTON (stress urinary incontinence, female) documented in this encounter Results * REFLEXIVE URINE CULTURE (06/12/2017 9:44 AM CDT) Urine culture NO CULTURE INDICATED [facility] [place] 06/12/2017 9:44 AM CDT 06/12/2017 9:45 AM CDT Narrative Resulting Agency Comment Performing Organization Information: ?Site ID: [place] ?Name: [facility] ?Address: [address] [place] [address] [place] [address] ?Director: Sunny Dillon D.O., MPH us May Ortiz MD LAB MICROBIOLOGY - [facility] ORDERABLES Final Result [facility] [place] * Urinalysis reflex to microscopic and culture (06/12/2017 9:44 AM CDT) Color, ur YELLOW YELLOW [facility] [place] Appearance, ur CLEAR CLEAR [facility] Specific gravity 1.007 1.001 - 1.035 [facility] [place] pH, ur 5.5 5.0 - 8.0 [facility] [place] Glucose, ur NEGATIVE NEGATIVE [facility] [place] Reducing substances CANCELED NEGATIVE % [facility] [place] Comment:Result canceled by t he ancillary Bilirubin, ur NEGATIVE NEGATIVE [facility] [place] Ketones, ur NEGATIVE NEGATIVE [facility] [place] Blood, ur NEGATIVE NEGATIVE [facility] [place] Protein, ur, quant NEGATIVE NEGATIVE [facility] [place] Nitrites, ur NEGATIVE NEGATIVE [facility] [place] Leukocyte esterase, ur NEGATIVE NEGATIVE [facility] [place] WBC, ur NONE SEEN < OR = 5 /HPF [facility] [place] RBC, ur NONE SEEN < OR = 2 /HPF [facility] [place] Epithelial cells, squamous, ur NONE SEEN < OR = 5 /HPF [facility] [place] Epithelial cells, transitional CANCELED < OR = 5 /HPF [facility] [place] Comment:Result canceled by t he ancillary Epithelial cells, renal, ur CANCELED < OR = 3 /HPF [facility] [place] Comment:Result canceled by t he ancillary Bacteria, ur, quant NONE SEEN NONE SEEN /HPF [facility] [place] Calcium oxalate crystals, ur CANCELED NONE OR FEW /HPF [facility] [place] Comment:Result canceled by t he ancillary Triple phosphate crystals, ur CANCELED NONE OR FEW /HPF [facility] [place] Comment:Result canceled by t he ancillary Uric acid crystals, ur CANCELED NONE OR FEW /HPF [facility] [place] Comment:Result canceled by t he ancillary Amorphous crystals, ur CANCELED NONE OR FEW /HPF [facility] [place] Comment:Result canceled by t he ancillary Crystals, ur CANCELED NONE SEEN /HPF [facility] [place] Comment:Result canceled by t he ancillary Hyaline cast NONE SEEN NONE SEEN /LPF [facility] [place] Granular casts, ur CANCELED NONE SEEN /LPF [facility] [place] Comment:Result canceled by t he ancillary Casts CANCELED NONE SEEN /LPF [facility] [place] Comment:Result canceled by t he ancillary Yeast, ur CANCELED NONE SEEN /HPF [facility] [place] Comment:Result canceled by t he ancillary Comments CANCELED [facility] [place] Comment:Result canceled by t he ancillary Note CANCELED [facility] [place] Comment:Result canceled by t he ancillary Urine 06/12/2017 9:44 AM CDT 06/12/2017 9:45 AM CDT Narrative Resulting Agency Comment Performing Organization Information: ?Site ID: [id number] ?Name: [facility] ?Address: [address] [place] [address] ?Director: Sunny Dillon D.O., MPH May Ortiz MD LAB MICROBIOLOGY - [facility] ORDERABLES Final Result [facility] [place] * Screening Mammogram 2D Bilateral (06/09/2017 10:31 AM CDT) Anatomical Region Laterality Modality Breast Bilateral Mammography Narrative 06/11/2017 3:29 PM CDT Screening BILATERAL DIGITAL MAMMOGRAPHY The present examination has been compared to prior imaging studies dated 04/05/2016, 01/17/2015 and 12/10/2011. Mammogram Findings CAD (computer-aided detection) software was utilized. The breasts are heterogeneously dense. ??This may lower the sensitivity of mammography. No masses, significant calcifications or other abnormalities are seen. Impression There is no mammographic evidence of malignancy. Screening mammogram in 1 year is recommended. BI-RADS Category 1: Negative May Ortiz MD IMG MAMMO PROCEDURES Final Result documented in this encounter Visit Diagnoses Diagnosis Routine gynecological examination- Primary PRESTON (stress urinary incontinence, female) Encounter for screening mammogram for malignant neoplasm of breast Encounter for screening mammogram for malignant neoplasm of breast documented in this encounter Care Teams Certified Medical Asst Relationship Specialty Start Date End Date Lacey Mcdowell MD PCP - General 12/08/12 documented as of this encounter
--- OUTSIDE RECORDS SUMMARY | 2024-09-11 10:44 | XMS_ITS | Encounter Summary ---
Author Organization [facility] Healthcare Address [address] [place] [address] Care Team Providers Care Handy Man Name Role Phone Angela Mcdowell MD Primary Care Provider [phone] Encounter Details Date Type Department Care Team (Late st Contact Info) Description 11/30/2013 11:04 AM CDT - 11/30/2013 2:00 PM CDT Hospital Encounter [facility] Parish Martinez MD [address] [facility] [place] [address] Dizziness and giddiness Social History Tobacco Use Types Packs/Day Years Used Date Smoking Tobacco: Never Assessed Comments Unknown Sex and Gender Information Value Date Recorded Sex Assigned at Not on file 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 0 12/04/2011 naproxen sodium (ALEVE) 220 mg capsule 220 mg. 0 12/04/2011 documented as of this encounter Plan of Treatment Not on file documented as of this encounter Procedures Procedure Name Priority Date/Time Associated Diagnosis Comments CT HEAD WO CONTRAST Routine 11/30/2013 1 :28 PM CDT XR CHEST PA LATERAL 2 VIEWS Routine 11/30/2013 12:03 PM CDT SERUM THYROXINE (T4), FREE Routine 11/30/2013 12:00 PM CDT SERUM THYROID-STIMULATING HORMONE (TSH) Routine 11/30/2013 12:00 PM CDT SERUM MAGNESIUM Routine 11/30/2013 12:00 PM CDT SERUM COMPREHENSIVE METABOLIC PANEL Routine 11/30/2013 12:00 PM CDT PLASMA PROTHROMBIN TIME (PT) Routine 11/30/2013 12:00 PM CDT PLASMA PARTIAL THROMBOPLASTIN TIME (PTT) Routine 11/30/2013 12:00 PM CDT BLOOD WBC CELL MORPHOLOGIC EXAM, AUTO Routine 11/30/2013 12:00 PM CDT BLOOD CELL COUNT (CBC) Routine 4 12:00 PM CDT URINALYSIS Routine 11/30/2013 11:55 AM CDT SERUM TROPONIN I Routine 11/30/2013 7:00 AM CDT BLOOD B-TYPE NATRIURETIC PEPTIDE (BNP) Routine 11/30/2013 7:00 AM CDT DISCHARGE LABORATORY CUMULATIVE REPORT Routine 11/30/2013 12:00 AM CDT documented in this encounter Results * CT Head WO Contrast (11/30/2013 1:28 PM CDT) Anatomical Region Laterality Modality Head and Neck N/A Computed Tomogra phy 11/30/2013 1:28 PM CDT Narrative 11/30/2013 3:[address] [place] ?[id number] ??Acc#: ??[id number] DATE OF EXAM: ??Nov 30 2013 CLINICAL HISTORY: Lightheadedness. ??nausea. ??Numbness. RESULT: Helical CT scan of the head obtained noncontrast. No acute intracranial hemorrhage identified. ??No midline shift is noted. Brainstem cisterns are intact. ??Ventricles are normal in size. IMPRESSION: NORMAL NONCONTRAST STUDY. Report called to Dr. Rojas 11/30/13 @ 1:40pm. Interpreting Physician: ??MACARIO PAGAN M.D. ??Read on: ??Nov 30 2013 ??1:40P Transcribed by: ??mb ?? On: Nov 30 2013 ??3:04P Approved Electronically by: ??MACARIO PAGAN M.D. ??on: ??Nov 30 2013 ??3:22P Ordering DR: DR PARISH ROJAS Attending DR: ANGELA MCDOWELL Procedure Note Provider, Howard, - 01/19/[place] [id number] Acc#: [id number] DATE OF EXAM: Nov 30 2013 CLINICAL HISTORY: Lightheadedness. nausea. Numbness. RESULT: Helical CT scan of the head obtained noncontrast. No acute intracranialhemorrhage identified. No midline shift is noted. Brainstem cisterns areintact. Ventricles are normal in size. IMPRESSION: NORMAL NONCONTRAST STUDY. Report called to Dr. Rojas 11/30/13 @1:40pm. Interpreting Physician: MACARIO PAGAN M.D. Read on: Nov 30 2013 1:40P Transcribed by: prema On: Nov 30 2013 3:04P Approved Electronically by: MACARIO PAGAN M.D. on: Nov 30 2013 3:22P Ordering DR: DR PARISH ROJAS Attending DR: ANGELA MCDOWELL Historical Provider MD CAMACHO CT PROCEDURES Final R esult * XR Chest PA Lateral 2 View (11/30/2013 12:03 PM CDT) Anatomical Region Laterality Modality Body, Chest N/A Radiographic Kerri ging 11/30/2013 12:0 3 PM CDT Narrative 12/01/2013 12:41 PM CDT XR Chest 2 Views ?[id number] ??Acc#: ??[id number] DATE OF EXAM: ??Nov 30 2013 CLINICAL HISTORY: Palpitations. ??Nausea. RESULT: PA and lateral projections obtained. ??No prior study available for comparison. ??Cardiac size and pulmonary vascularity are within the range of normal. ??Lungs are free of confluent infiltrates. ??Costophrenic angles are sharp. IMPRESSION: NO ACUTE PULMONARY DISEASE. Interpreting Physician: ??MACARIO PAGAN M.D. ??Read on: ??Nov 30 2013 12:56P Transcribed by: ??mrr ??On: Nov 30 2013 ??4:12P Approved Electronically by: ??MACARIO PAGAN M.D. ??on: ??Dec 01 2013 12:41P Ordering DR: DR PARISH ROJAS Attending DR: ANGELA MCDOWELL Procedure Note Provider, Howard, - 01/19/2017 XR Chest 2 Views [id number] Acc#: [id number] DATE OF EXAM: Nov 30 2013 CLINICAL HISTORY: Palpitations. Nausea. RESULT: PA and lateral projections obtained. No prior study available forcomparison. Cardiac size and pulmonary vascularity are within the rangeof normal. Lungs are free of confluent infiltrates. Costophrenic anglesare sharp. IMPRESSION: NO ACUTE PULMONARY DISEASE. Interpreting Physician: MACARIO PAGAN M.D. Read on: Nov 30 2013 12:56P Transcribed by: r On: Nov 30 2013 4:12P Approved Electronically by: MACARIO PAGAN M.D. on: Dec 01 2013 12:41P Ordering DR: DR PARISH ROJAS Attending DR: ANGELA MCDOWELL us Historical Provider IMG XR PROCEDURES Final R esult * Plasma partial thromboplastin time (PTT) (11/30/2013 12:00 PM CDT) APTT 28.3 -<35. seconds HISTOR ICAL RESULTS Plasma 11/30/2013 12:0 0 PM CDT Parish Rojas MD LAB BLOOD ORDERABLES Yanira l Result HISTORICAL RESULTS * Plasma prothrombin time (PT) (11/30/2013 12:00 PM CDT) Prothrombin time (PT) 12.8 11.1 - 14.4 seconds HISTORICAL RESULTS INR 1.00 HISTORICAL RESULTS Comment: RECOMMENDED RANGES FOR PROTIME INR: NOTE: THE INR HAS BEEN VALIDATED ONLY FOR PATIENTS ON STABLE ORAL ?ANTICOAGULANT THERAPY. ?2.0 - 3.0 ??PROPHYLAXIS OF VENOUS THROMBOSIS (HIGH RISK SURGERY) ?2.0 - 3.0 ??TREATMENT OF VENOUS THROMBOSIS ?2.0 - 3.0 ??TREATMENT OF PULMONARY EMBOLISM ?2.0 - 3.0 ??PREVENTION OF SYSTEMIC EMBOLISM ? TISSUE HEART VALVES ? AMI (TO PREVENT SYSTEMIC EMBOLISM)* ? VALVULAR HEART DISEASE ? ATRIAL FIBRILLATION ?2.5 - 3.5 ??MECHANICAL PROSTHETIC VALVES (HIGH RISK) ?2.0 - 3.0 ??BILEAFLET MECHANICAL VALVE IN AORTIC POSITION *If oral anticoagulant therapy is elected to prevent recurrent myocardial infarction, an INR of 2.5 to 3.5 is recommended, consistent with Food and Drug Administration recommendations. Plasma 11/30/2013 12:0 0 PM CDT Parish Rojas MD LAB BLOOD ORDERABLES Yanira l Result Performing Organization Address [facility] de Phone Number HISTORICAL RESULTS * Serum thyroid-stimulating hormone (TSH) (11/30/2013 12:00 PM CDT) Pathologist [facility] TSH 0.49 0.35 - 4.80 mcIUnits/ml HISTORICAL RESULTS Serum 11/30/2013 12:0 0 PM CDT Parish Rojas MD LAB BLOOD ORDERABLES Yanira l Result Performing Organization Address [facility] de Phone Number HISTORICAL RESULTS * Serum magnesium (11/30/2013 12:00 PM CDT) Pathologist [facility] Magnesium 2.1 1.5 - 2.2 mg/dl HISTORICAL RESULTS Serum 11/30/2013 12:0 0 PM CDT Parish Rojas MD LAB BLOOD ORDERABLES Yanira l Result Performing Organization Address [facility] de Phone Number HISTORICAL RESULTS * Serum thyroxine (T4), free (11/30/2013 12:00 PM CDT) Free T4 0.9 0.7 - 1.3 ng/dl HISTORICAL RESULTS Serum 11/30/2013 12:0 0 PM CDT Parish Rojas MD LAB BLOOD ORDERABLES Yanira l Result Performing Organization Address [facility] de Phone Number HISTORICAL RESULTS * Blood cell count (CBC) (11/30/2013 12:00 PM CDT) WBC 8.8 4.0 - 10.5 K/cumm HISTORICAL RESULTS RBC 4.45 4.20 - 5.40 M/cumm HISTORICAL RESULTS Hgb 14.1 12.0 - 16.0 g/dl HISTORICAL RESULTS Hct 41.1 37.0 - 47.0 % HISTORICAL RESULTS MCV 92.4 77.0 - 97.0 fl HISTORICAL RESULTS MCH 31.7 23.0 - 34.0 pg HISTORICAL RESULTS MCHC 34.3 32.0 - 36.0 g/dl HISTORICAL RESULTS Rdw 12.1 11.5 - 14.5 % HISTORICAL RESULTS Platelets 346 150 - 450 K/cumm HISTORICAL RESULTS MPV 8.5 7.4 - 10.4 fl HISTORICAL RESULTS Blood specimen (specimen) 11/30/2013 12:00 PM CDT Parish Rojas MD LAB BLOOD ORDERABLES Yanira l Result Performing Organization Address [facility] de Phone Number HISTORICAL RESULTS * (ABNORMAL) Blood WBC cell morphologic exam, auto (11/30/2013 12:00 PM CDT) Lymphocytes 11.2(L) 25.0 - 33.0 % HISTORICAL RESULTS Monos 5.5 1.0 - 13.0 % HISTORICAL RESULTS Neutrophils 82.4(H) 53.0 - 69.0 % HISTORICAL RESULTS Eosinophils 0.6 0.0 - 10.0 % HISTORICAL RESULTS Basophils 0.2 0.0 - 1.0 % HISTORICAL RESULTS Immature granulocytes 0.1 0.0 - 1.0 % HISTORICAL RESULTS Lymphocytes, abs 1.0(L) 1.2 - 3.4 K/cumm HISTORICAL RESULTS Monocytes, absolute 0.5(L) 1.1 - 1.9 K/cumm HISTORICAL RESULTS Neutrophils, abs 7.3(H) 1.4 - 6.5 K/cumm HISTORICAL RESULTS Eosinophils, abs 0.1 0.0 - 0.7 cells/cum m HISTORICAL RESULTS Basophils, abs 0.0 0.0 - 0.2 K/cumm HISTORICAL RESULTS Immature granulocyte, abs 0.0 0.0 - 0.0 K/cumm HISTORICAL RESULTS Blood specimen (specimen) 11/30/2013 12:00 PM CDT Parish Rojas MD LAB BLOOD ORDERABLES Yanira l Result HISTORICAL RESULTS * Serum comprehensive metabolic panel (11/30/2013 12:00 PM CDT) Pathologist [facility] BUN 15.0 6.0 - 23.0 mg/dl HISTORICAL RESULTS Sodium 139 134 - 143 mmol/L HISTORICAL RESULTS Potassium, sr 3.9 3.4 - 5.0 mmol/L HISTORICAL RESULTS Chloride 105 99 - 108 mmol/L HISTORICAL RESULTS CO2 27 23 - 32 mmol/L HISTORICAL RESULTS Glucose 111 70 - 199 mg/dl HISTORICAL RESULTS Comment: Note:The glucose is assumed non fasting Fastin-99 mg/dl Random: 70-199 mg/dl Either a fasting glucose > 126 mg/dL or a random glucose > 200 mg/dL plus symptoms is diagnostic of diabetes when confirmed on another day. Fasting values > 100 mg/dl but < 125 mg/dL are diagnostic of impaired fasting glucose. New reference ranges implemented 08/02/2013. Creatinine 0.77 0.60 - 1.30 mg/dl HISTORICAL RESULTS Comment: eGFR: >70 ml/min/1.73sq.m if non -Equatorial [place]. eGFR: >70 ml/min/1.73sq.m if -Equatorial [place]. AVE GFR for 40-49 yr. age group: ??99 ml/min/1.73sq.m Calculated using MDRD Equation BUN/creat ratio 19 10 - 20 HIST ORICAL RESULTS A. gap 11 7 - 14 mmol/L HISTORICAL RESULTS Protein, sr 8.0 6.4 - 8.0 g/dl HISTORICAL RESULTS Alb 4.1 3.3 - 4.5 g/dl HISTORICAL RESULTS Alb/glob ratio 1.1 1.1 - 1.8 HISTO RICAL RESULTS Calcium 9.4 8.6 - 9.8 mg/dl HISTORICAL RESULTS Bilirubin 0.4 0.0 - 1.1 mg/dl HISTORICAL RESULTS Alk phos 76 44 - 125 Units/L HISTORICAL RESULTS AST 16 5 - 40 Units/L HISTORICAL RESULTS Comment:AST - NOTE REFERENCE RANGE CHANGE ALT 30 15 - 70 Units/L HISTORICAL RESULTS Serum 11/30/2013 12:0 0 PM CDT Parish Rojas MD LAB BLOOD ORDERABLES Yanira l Result Performing Organization Address [facility] de Phone Number HISTORICAL RESULTS * Urinalysis (11/30/2013 11:55 AM CDT) Color, ur YELLOW YELLOW HISTORICAL RESULTS Clarity, ur CLEAR CLEAR HISTORIC AL RESULTS Specific gravity, ur 1.003 1.000 - 1.030 gu HISTORICAL RESULTS Leukocyte esterase, ur Negative NEGATIVE HISTORICAL RESULTS Nitrites, ur Negative NEGATIVE HISTORI CLAUDETTE RESULTS pH, ur 5.5 6.0 HISTORICAL RESULTS Protein, ur Negative NEGATIVE HISTORIC AL RESULTS Glucose, ur Negative NEGATIVE HISTORIC AL RESULTS Ketones, ur Negative NEGATIVE HISTORIC AL RESULTS Urobilinogen, quant, ur 0.2 0.2 - 1.0 mg/dl HISTORICAL RESULTS Bilirubin, ur Negative NEGATIVE HISTOR ICAL RESULTS U Blood Negative NEGATIVE HISTORICAL RESULTS Urine 11/30/2013 11:5 5 AM CDT Parish Rojas MD LAB BLOOD ORDERABLES Yanira l Result Performing Organization Address [facility] de Phone Number HISTORICAL RESULTS * Blood B-type natriuretic peptide (BNP) (11/30/2013 7:00 AM CDT) BNP 10 -<100 pg/ml HISTORIC AL RESULTS Blood specimen (specimen) 11/30/2013 7:00 AM CDT Narrative HISTORICAL RESULTS - 11/30/2013 8:02 AM CDT BNP REFERENCE RANGE <100 pg/ml Parish Rojas MD LAB BLOOD ORDERABLES Yanira l Result Performing Organization Address City/State/[facility] Co de Phone Number HISTORICAL RESULTS * Serum troponin I (11/30/2013 7:00 AM CDT) Troponin I 0.05 0.00 - 0.10 ng/ml HISTORICAL RESULTS Serum 11/30/2013 7:00 AM CDT Narrative HISTORICAL RESULTS - 11/30/2013 8:03 AM CDT NEGATIVE: ??0.00 - 0.10 NG/ML INDETERMINATE: ??0.11 - 0.50 NG/ML POSITIVE: ??GREATER THAN 0.50 NG/ML us Parish Rojas MD LAB BLOOD ORDERABLES Yanira l Result Performing Organization Address City/[facility] Co de Phone Number HISTORICAL RESULTS * Discharge Laboratory Cumulative Report (11/30/2013 12:00 AM CDT) 11/30/2013 Narrative HISTORICAL RESULTS - 12/01/2013 12:34 AM CDT Patient No: [id number] ? [facility] Patient Name: MARISELA MANN ?[facility] Age: 43 YRS ?: 1970 ?Sex:F ?[address] )[phone] ?? Adm Dt: 11/30/2013 ?DANIEL Fry ??[id number] Created: 12/01/2013 ??0034 ?? Pt. Type: E ? Discharge Dt: 11/30/2013 ? Pathologists: Fabiana Elena MD Admit Attend Dr: PARISH ROJAS MD ? BLOOD CELL COUNTS ?Collection Date: ?11/30/13 ?Collection Time: ?1200 ? Ref Range: ?? Units: [4.00-10.50] /CMM ? WBC X 10^3 ?8.84 [4.20-5.40] ??/CMM ? RBC X 10^6 ?4.45 [12.0-16.0] ??G/DL ? HGB ? 14.1 [37.0-47.0] ??% ?HCT ? 41.1 [77.0-97.0] ??FL ? MCV ? 92.4 [23.0-34.0] ??PG ? MCH ? 31.7 [32.0-36.0] ??% ?MCHC ?34.3 [11.5-14.5] ??% ?RDW ? 12.1 [150-450] ?? /CMM ? PLT X 10^3 ? 346 ?BLOOD CELL DIFFERENTIAL ?Collection Date: ?11/30/13 ?Collection Time: ?1200 ? Ref Range: ?? Units: [53.0-69.0] ??% ?NEUTROPHILS ? 82.4 H [25.0-33.0] ??% ?LYMPHOCYTES ? 11.2 L [1.0-13.0] ??% ?MONOCYTES ?5.5 [0.0-10.0] ??% ?EOSINOPHILS ?0.6 [0.0-1.0] ?? % ?BASOPHILS ?0.2 ? /CMM ? A LYMPHOCYTE ? 1.0 L [0.0-1.0] ?? % ?IMM GRAN % ? 0.1 [0.00-0.02] ??/CMM ? A IMM GRAN ?0.01 [1.1-1.9] ?? /CMM ? A MONOCYTE ? 0.5 L [1.4-6.5] ?? /CMM ? A NEUTROPHIL ? 7.3 H [0.0-0.7] ?? /CMM ? A EOSINOPHIL ? 0.1 [0.0-0.2] ?? /CMM ? A BASOPHIL ? 0.0 Footnotes and Symbols: L = Low, H = High ?? CONTINUED ?Page: ?? 1 Patient No: [id number] ? [facility] Patient Name: MARISELA MANN ?[facility] Age: 43 YRS ?: 1970 ?Sex:F ?[address] )[phone] ?? Adm Dt: 11/30/2013 ?DANIEL Fry ??[id number] Created: 12/01/2013 ??0034 ?? Pt. Type: E ? Discharge Dt: 11/30/2013 ? Pathologists: Fabiana Elena MD Admit Dr. Dickens Dr: PARISH ROJAS MD ? GENERAL CHEMISTRY ?Collection Date: ?11/30/13 ?Collection Time: ?1200 ? Ref Range: ?? Units: [< ?100] ?? pg/ml ?BNP ? 10 f [134-143] ?? MMOL/L ? SODIUM ? 139 [3.4-5.0] ?? MMOL/L ? POTASSIUM ?3.9 [99.0-108.0] MMOL/L ? CHLORIDE ? 105.0 [23.0-32.0] ??MMOL/L ? TOTAL CO2 ? 27.4 ?? [7-14] ?MMOL/L ? ANION GAP ? 11 ??[70-199] ?? MG/DL ?GLUCOSE ?111 f [6.4-8.0] ?? G/DL ? TOTAL PROTEIN ?8.0 [3.3-4.5] ?? G/DL ? ALBUMIN ?4.1 [1.1-1.8] ?A/G RATIO ?1.1 [8.6-9.8] ?? MG/DL ?CALCIUM ?9.4 [0.0-1.1] ?? MG/DL ?BILI TOTAL ? 0.4 ??[44-125] ?? U/L ?ALK PHOS ?76 ?? [5-40] ?U/L ?AST(SGOT) ? 16 f ??[15-70] ?U/L ?ALT(SGPT) ? 30 f [6.0-23.0] ??MG/DL ?BUN ? 15.0 ??[10-20] ? B/C RATIO ? 19 Footnotes and Symbols: f = Footnote BNP (07/01/08 -- Current) BNP REFERENCE RANGE <100 pg/ml GLUCOSE (08/24/13 -- Current) Note:The glucose is assumed non fasting Fastin-99 mg/dl Random: 70-199 mg/dl Either a fasting glucose > 126 mg/dL or a random glucose > 200 mg/dL plus symptoms is diagnostic of diabetes when confirmed on another day. Fasting values > 100 mg/dl but < 125 mg/dL are diagnostic of impaired fasting glucose. New reference ranges implemented 08/02/2013. AST(SGOT) (03/03/13 -- Current) AST ??- NOTE REFERENCE RANGE CHANGE ALT(SGPT) (04/13/13 -- Current) ?? CONTINUED ?Page: ?? 2 Patient No: [id number] ? [facility] Patient Name: MARISELA MANN ?[facility] Age: 43 YRS ?: 1970 ?Sex:F ?[address] )[phone] ?? Adm Dt: 11/30/2013 ?[place], [place] ??[id number] Created: 12/01/2013 ??0034 ?? Pt. Type: E ? Discharge Dt: 11/30/2013 ? Pathologists: Fabiana Elena MD Admit Dr. Dickens Dr: PARISH ROJAS MD ? GENERAL CHEMISTRY ?Collection Date: ?11/30/13 ?Collection Time: ?1200 ? Ref Range: ?? Units: [0.60-1.30] ??MG/DL ?CREATININE ?0.77 f ?11/30/13 1200 eGFR: >70 ml/min/1.73sq.m if non -[place]. eGFR: >70 ml/min/1.73sq.m if -Equatorial [place]. AVE GFR for 40-49 yr. age group: ??99 ml/min/1.73sq.m Calculated using MDRD Equation FOOTNOTE ADDED ON ?? 11/30/13 ?? AT 1246 BY 999 [1.5-2.2] ?? MG/DL ?MAGNESIUM ?2.1 ? CARDIAC CHEMISTRY ?Collection Date: ?11/30/13 ?Collection Time: ?1200 ? Ref Range: ?? Units: [0.00-0.10] ??NG/ML ?TROPONIN I ?0.05 f Footnotes and Symbols: f = Footnote TROPONIN I (07/18/11 -- Current) NEGATIVE: ??0.00 - 0.10 NG/ML INDETERMINATE: ??0.11 - 0.50 NG/ML POSITIVE: ??GREATER THAN 0.50 NG/ML ?? CONTINUED ?Page: ?? 3 Patient No: [id number] ? [facility] Patient Name: MARISELA MANN ?[facility] Age: 43 YRS ?: 1970 ?Sex:F ?[address] )[phone] ?? Adm Dt: 11/30/2013 ?DANIEL Fry ??[id number] Created: 12/01/2013 ??0034 ?? Pt. Type: E ? Discharge Dt: 11/30/2013 ? Pathologists: Fabiana Elena MD Admit Attend Dr: PARISH ROJAS MD ?THYROID FUNCTION TESTS ?Collection Date: ?11/30/13 ?Collection Time: ?1200 ? Ref Range: ?? Units: [0.7-1.3] ?? NG/DL ?FREE T4 ?0.9 [0.35-4.80] ??uIU/ML ? TSH ? 0.49 ?COAGULATION ? Units: ?? PROTIME ?INR ?APTT PAT ? Low: ??[11.1-14.4] ? [< ?? 35.4] ? Ref Range: ? SECS ?SECS ? 11/30/13 1200 ?12.8 ? 1.00 f ? 28.3 Footnotes and Symbols: f = Footnote INR (04/10/00 -- Current) RECOMMENDED RANGES FOR PROTIME INR: NOTE: THE INR HAS BEEN VALIDATED ONLY FOR PATIENTS ON STABLE ORAL ?ANTICOAGULANT THERAPY. ?2.0 - 3.0 ??PROPHYLAXIS OF VENOUS THROMBOSIS (HIGH RISK SURGERY) ?2.0 - 3.0 ??TREATMENT OF VENOUS THROMBOSIS ?2.0 - 3.0 ??TREATMENT OF PULMONARY EMBOLISM ?2.0 - 3.0 ??PREVENTION OF SYSTEMIC EMBOLISM ? TISSUE HEART VALVES ? AMI (TO PREVENT SYSTEMIC EMBOLISM)* ? VALVULAR HEART DISEASE ? ATRIAL FIBRILLATION ?2.5 - 3.5 ??MECHANICAL PROSTHETIC VALVES (HIGH RISK) ?2.0 - 3.0 ??BILEAFLET MECHANICAL VALVE IN AORTIC POSITION *If oral anticoagulant therapy is elected to prevent recurrent myocardial infarction, an INR of 2.5 to 3.5 is recommended, consistent with Food and Drug Administration recommendations. ?? CONTINUED ?Page: ?? 4 Patient No: [id number] ? [facility] Patient Name: MARISELA MANN ?[facility] Age: 43 YRS ?: 1970 ?Sex:F ?[address] )[phone] ?? Adm Dt: 11/30/2013 ?[place], [place] ??[address] Created: 12/01/2013 ??0034 ?? Pt. Type: E ? Discharge Dt: 11/30/2013 ? Pathologists: Fabiana Elena MD Admit Dr. Dickens Dr: PARISH ROJAS MD ?URINALYSIS ?Collection Date: ?11/30/13 ?Collection Time: ?1155 ? Ref Range: ?? Units: [YELLOW] ? U COLOR ? YELLOW ??[CLEAR] ? U APPEARANCE ? CLEAR [1.000-1.030] ? U SPEC GRAVITY ? 1.003 [NEGATIVE] ?U LEUKO ESTRASE ? NEGATIVE [NEGATIVE] ?U NITRITE ? NEGATIVE ?? [6.0] ?U PH ? 5.5 [NEGATIVE] ?U PROTEIN ? NEGATIVE [NEGATIVE] ?U GLUCOSE ? NEGATIVE [NEGATIVE] ?U KETONES ? NEGATIVE [0.2- 1.0] ?UROBILINOGEN ? 0.2 [NEGATIVE] ?U BILIRUBIN ? NEGATIVE [NEGATIVE] ?U BLOOD ? NEGATIVE ?? END OF CHART ? Page: ?? 5 us Historical Provider LAB BLOOD ORDERABLES Yanira l Result Performing Organization Address City/State/[facility] Co de Phone Number HISTORICAL RESULTS documented in this encounter Visit Diagnoses Diagnosis Dizziness and giddiness documented in this encounter Care Teams Handy Man Relationship Specialty Start Date End Date Angela Mcdowell MD PCP - General 12/08/12 documented as of this encounter
--- OUTSIDE RECORDS SUMMARY | 2024-09-11 10:44 | XMS_ITS | Encounter Summary ---
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 0 12/04/2011 escitalopram (LEXAPRO) 10 mg tablet take 1 tablet by oral route every day 0 0 01/17/2015 9 simvastatin (ZOCOR) 10 mg tablet take 1 tablet by oral route every day in the evening 0 0 01/17/2015 9 documented as of this encounter Discharge Disposition Disposition Code Departure Means Destination Discharge to home or self care documented in this encounter Plan of Treatment Not on file documented as of this encounter Procedures Procedure Name Priority Date/Time Associated Diagnosis Comments SCREENING MAMMOGRAM 2D BILATERAL Schedule Routine, Read Routine (OP Routine) 06/09/2017 10:31 AM CDT Encounter for screening mammogram for malignant neoplasm of breast documented in this encounter Results * Screening Mammogram 2D Bilateral (06/09/2017 10:31 [...] breast documented in this encounter Care Teams Real Estate Professor Relationship Specialty Start Date End Date Lacey Mcdowell MD PCP - General 12/08/12 documented as of this encounter
--- OUTSIDE RECORDS SUMMARY | 2024-09-11 10:44 | XMS_ITS | Encounter Summary ---
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
--- OUTSIDE RECORDS SUMMARY | 2024-09-11 10:44 | XMS_ITS | Encounter Summary ---
Author Organization [facility] Healthcare Address [address] [place] [address] Care Team Providers Care Credit Administration Specialist Name Role Phone Unavailable Primary Care Provider Unavailabl e Encounter Details Date Type Department Care Team (Late st Contact Info) Description 10/30/2009 12:01 AM DIE MAKER TRIM - 10/30/2009 11:59 PM DIE MAKER TRIM Hospital Encounter [facility] Lacey Mcdowell [place] [address] Palpitations; Other chest pain Social History Tobacco Use Types Packs/Day Years Used Date Smoking Tobacco: Never Assessed Comments Unknown Sex and Gender Information Value Date Recorded Sex Assigned at Not on file Legal Sex Female 11:21 AM DIE MAKER TRIM Gender Identity Not on file Sexual Orientation Not on file documented as of this encounter Plan of Treatment Not on file documented as of this encounter Visit Diagnoses Diagnosis Palpitations Other chest pain documented in this encounter
--- OUTSIDE RECORDS SUMMARY | 2024-09-11 10:44 | XMS_ITS | Encounter Summary ---
Author Organization [facility] Healthcare Address [address] [place] [address] Care Team Providers Care [employer] Feeder Name Role Phone Lacey Mcdowell MD Primary Care Provider [phone] Encounter Details Date Type Department Care Team (Late st Contact Info) Description 11/13/2015 9:28 AM DOCUMENTATION LIAISON - 11/13/2015 11:59 PM DOCUMENTATION LIAISON Hospital Encounter [facility]INCON[facility] Lacey [place] [address] Hyperlipidemia Social History Tobacco Use Types Packs/Day Years Used Date Smoking Tobacco: Never Assessed Comments Unknown Sex and Gender Information Value Date Recorded Sex Assigned at Not on file Legal Sex Female 11:21 AM DOCUMENTATION LIAISON Gender Identity Not on file Sexual Orientation [...] 01/17/2015 9 documented as of this encounter Plan of Treatment Not on file documented as of this encounter Procedures Procedure Name Priority Date/Time Associated Diagnosis Comments DISCHARGE LABORATORY CUMULATIVE REPORT 11/14/2015 SERUM THYROID-STIMULATING HORMONE (TSH) Routine 11/13/2015 9:45 AM DOCUMENTATION LIAISON SERUM LIPID PANEL Routine 11/13/2015 9:4 5 AM DOCUMENTATION LIAISON SERUM ESTIMATED GLOMERULAR FILTRATION RATE Routine 11/13/2015 9:45 AM DOCUMENTATION LIAISON PLASMA COMPREHENSIVE METABOLIC PANEL Routine 11/13/2015 9:45 AM DOCUMENTATION LIAISON documented in this encounter Results * DISCHARGE LABORATORY CUMULATIVE REPORT (11/14/2015) Narrative 11/14/2015 Ordered by an unspecified provider. Historical Provider LAB BLOOD ORDERABLES Yanira l Result * Serum thyroid-stimulating hormone (TSH) (11/13/2015 9:45 AM DOCUMENTATION LIAISON) TSH 0.82 0.30 - 5.00 mcIUnits/ml HISTORICAL RESULTS Serum 11/13/2015 9:45 AM DOCUMENTATION LIAISON Historical Provider MD LAB BLOOD ORDERABLES Yanira l Result HISTORICAL RESULTS * (ABNORMAL) Plasma comprehensive metabolic panel (11/13/2015 9:45 AM DOCUMENTATION LIAISON) Sodium 140 135 - 145 mmol/L HISTORICAL RESULTS K, pl 4.0 3.5 - 5.1 mmol/L HISTORICAL RESULTS Chloride 103 97 - 110 mmol/L HISTORICAL RESULTS CO2 25 22 - 32 mmol/L HISTORICAL RESULTS A. gap 16 8 - 16 mmol/L HISTORICAL RESULTS Glucose 94 70 - 199 mg/dl HISTORICAL RESULTS Comment: Interpretive Data Note:The glucose is assumed non fasting Fastin-99 mg/dL Random: ??70-199 mg/dL Either a fasting glucose > 126 mg/dL or a random glucose > 200 mg/dL plus symptoms is diagnostic of diabetes when confirmed on another day. Fasting values > 100 mg/dL but < 125 mg/dL are diagnostic of impaired fasting glucose. Current interpretive data was last revised on 2014. BUN 15.1 8.0 - 25.0 mg/dl HISTORICAL RESULTS Creatinine 0.60 0.60 - 1.10 mg/dl HISTORICAL RESULTS BUN/creat ratio 25(H) 10 - 20 HIST ORICAL RESULTS Calcium 8.8 8.6 - 10.2 mg/dl HISTORICAL RESULTS Protein, sr 7.2 6.0 - 8.4 g/dl HISTORICAL RESULTS Alb 4.1 3.6 - 5.0 g/dl HISTORICAL RESULTS Alb/glob ratio 1.3 1.1 - 1.8 ratio HISTORICAL RESULTS Alk phos 61 40 - 130 Units/L HISTORICAL RESULTS ALT 24 5 - 45 Units/L HISTORICAL RESULTS AST 20 10 - 40 Units/L HISTORICAL RESULTS Bilirubin 0.6 <=1.2 mg/dl HISTORICAL RESULTS Plasma 11/13/2015 9:45 AM DOCUMENTATION LIAISON us Historical Provider LAB BLOOD ORDERABLES Yanira rivas Result HISTORICAL RESULTS * Serum lipid panel (11/13/2015 9:45 AM DOCUMENTATION LIAISON) Cholesterol 154 40 - 199 mg/dl HISTORICAL RESULTS Comment: Interpretive Data Desirable: ??Less than 200 mg/dl ? Borderline High: ?200 - 239 mg/dl ? High: ??Greater than ?? 239 mg/dl Current interpretive data was last revised on 2014. Triglycerides 49 <=150 mg/dl HISTORICAL RESULTS Comment: Interpretive Data Normal: ? Less than 150 mg/dl Borderline high: ??105-199 mg/dl ?? High: ? 200-499 mg/dl ? Very high: ??Greater than or equal to 500 mg/dl Current interpretive data was last revised on 2014. HDL 46 40 - 60 mg/dl HISTORICAL RESULTS Comment: Interpretive Data Low HDL Cholesterol: ? Less than 40 mg/dl Normal HDL Cholesterol: ??40-60 mg/dl High HDL Cholesterol: ?Greater than 60 mg/dl Current interpretive data was last revised on 2014. LDL 98 mg/dl HISTORICAL RESULTS Comment: Interpretive Data Optimal ? Less than 100 mg/dL ? Near optimal/Above optimal ??100 - 129 mg/dL ? Borderline high ? 130 - 159 mg/dL ? High ?160 - 189 mg/dL ? Very high ? Greater than or = 190 mg/dL ? LDL values are not valid when the total Triglyceride is greater than 300 mg/dL. Current interpretive data was last revised on 2014. Non-HDL cholesterol, calculated 108 mg/dl HISTORICAL RESULTS Comment: Interpretive Data Optimal ? Less than 130 mg/dL Low Risk ?130 - 159 mg/dL Moderate Risk ? 160 - 189 mg/dL High Risk ? Greater than or equal to 190 mg/dL Current interpretive data was last revised on 2014. Serum 11/13/2015 9:45 AM DOCUMENTATION LIAISON us Historical Provider LAB BLOOD ORDERABLES Yanira rivas Result HISTORICAL RESULTS * Serum estimated glomerular filtration rate (11/13/2015 9:45 AM DOCUMENTATION LIAISON) eGFR >60 ml/min/1.7 3 m2 HISTORICAL RESULTS Comment: Interpretation of Estimated GFR (eGFR): Normal ?>/= 60 mL/min/1.73m2 Possible Chronic Kidney Disease ??15 - 59 mL/min/1.73m2 Possible Kidney Failure ?< 15 ??mL/min/1.73m2 If -[place] multiply value by 1.16. ??Estimated glomerular filtration rate is determined by the CKD-EPI equation recommended by the National Kidney [employer] (KDIGO 2012 Clinical Practice Guideline for the Evaluation and Management of Chronic Kidney Disease. ??Kidney Intnl Suppl Sep 2012;3:1). ??The CKD-EPI equation should not be used in acute renal failure or acute kidney injury and is not valid in children. Serum 11/13/2015 9:45 AM DOCUMENTATION LIAISON us Historical Provider LAB BLOOD ORDERABLES Yanira l Result HISTORICAL RESULTS documented in this encounter Visit Diagnoses Diagnosis Hyperlipidemia Other and unspecified hyperlipidemia documented in this encounter Care Teams [employer] Feeder Relationship Specialty Start Date End Date Lacey Mcdowell MD PCP - General 12/08/12 documented as of this encounter
== END 2024-09-06 09:51 | disposition home or self-care (01) ==
PROVIDERS: Anesthesiology; PCP Family Medicine; Visit Provider Surgery
PROC: 0DJD8ZZ Inspection of Lower Intestinal Tract, Via Natural or Artificial Opening Endoscopic (ICD-10-PCS; CPT 45378; principal; 2024-09-06 09:00)
DX: Z12.11 Encounter for screening for malignant neoplasm of colon (principal); K57.30 Diverticulosis of large intestine without perforation or abscess without bleeding; E78.5 Hyperlipidemia, unspecified; I10 Essential (primary) hypertension; R73.03 Prediabetes; J45.909 Unspecified asthma, uncomplicated; G25.81 Restless legs syndrome; G47.33 Obstructive sleep apnea (adult) (pediatric); F41.9 Anxiety disorder, unspecified; E66.9 Obesity, unspecified; Z68.39 Body mass index [BMI] 39.0-39.9, adult; Z79.1 Long term (current) use of non-steroidal anti-inflammatories (NSAID); Z79.51 Long term (current) use of inhaled steroids; Z79.85 Long-term (current) use of injectable non-insulin antidiabetic drugs; Z98.890 Other specified postprocedural states; Z82.49 Family history of ischemic heart disease and other diseases of the circulatory system
CPT/HCPCS: 45378; J2704; J7120